=== PATIENT | female | born 1960 | race Caucasian/White ===

== ENCOUNTER 2023-06-24 10:39 | Outpatient (OUT) | payer OTHER, MEDICAID, SELFPAY ==
--- NOTE | 2023-06-24 10:40 | VEIN_ITS ---
Patient Name: NEO ZHENG MR#: [id number] : 1960 Exam Date: 06/24/2023 Ordering Doctor: DR MANN DIAZ M.D. RADIOLOGY REPORT PROCEDURE: [facility] - OFFICE VISIT INITIAL COMPARISON: None. PROGRESS NOTES: [age] year old female who presents with a 30 year history of lower extremity swelling and dilated veins. Acute onset 2 months ago of a dilated bulging vein, focal pain, erythema. The patient's right leg symptoms are worse than the left. There has been a progression of symptoms over time. This increases with prolonged leg dependency. The patient describes an improvement with rest, elevation, and support stockings. The patient denies any signs and symptoms to suggest arterial ischemia. The patient describes a family history : Unknown. The patient has drinking and smoking history of occasional alcohol consumption; no tobacco use. Patient has a past medical history significant for hypertension. The patient denies a history of deep venous thrombus or pulmonary embolus. See separate history and physical for medication list. No prior treatment for varicose or spider veins. Long-term use of compression stockings. After review of nurse notes, history and physical exam I discussed at length the pathophysiology of venous hypertension and possible treatments, therapies and strategies available. We discussed at length the importance of elevating the lower extremities above the level of the heart, increased physical activity and compression stocking use. Ultrasound venous reflux study performed today was discussed at length with the patient. The report demonstrates abnormally dilated with prominent abnormal reflux within the great saphenous and small saphenous veins bilaterally. Mild reflux but no abnormal dilation of the right anterior accessory saphenous vein. Bilateral dilated incompetent branch saphenous varicosities.. PHYSICAL EXAM: The right leg demonstrates several varicosities, numerous reticular and spider veins, no ulceration, mild edema, no skin discoloration. The left leg demonstrates several varicosities, numerous reticular and spider veins, no ulceration, mild edema, no skin discoloration. Both thighs, legs and feet were symmetrically warm to the touch. Good posterior tibial and dorsalis pedis pulses were present bilaterally. VEIN/[facility] EST Comprehensive IMPRESSION: 1. Bilateral lower extremity venous insufficiency 2. Bilateral lower extremity varicose veins 3. Mild bilateral lower extremity subcutaneous edema 4. No flow significant arterial disease 5. CEAP: [place] for C3, AP, , [place] PLAN: 1. Continued use of compression stockings 2. Elevated legs and increased physical activity symptomatic relief 3. Endovenous laser ablation of right great saphenous vein, left great saphenous vein, right small saphenous vein, and left small saphenous vein. 4. Microfoam chemical ablation of bilateral incompetent branch saphenous varicosities. 5. Bilateral lower extremity sclerotherapy for numerous reticular veins and spider veins. Nurse notes, history and physical were reviewed and confirmed, see attached forms. The nurse was present throughout the physical exam and consultation Dictated by: Julien Vega M.D. on 06/24/2023 at 12:08 Approved by: Julien Vega M.D. on 06/24/2023 at 12:34
--- NOTE | 2023-06-24 10:41 | VEIN_ITS ---
Patient Name: NEO ZHENG MR#: [id number] : 1960 Exam Date: 06/24/2023 Ordering Doctor: DR MANN DIAZ M.D. RADIOLOGY REPORT PROCEDURE: VC EXT VENOUS REFLUX ANOOP LMTD COMPARISON: None. INDICATIONS: I83.813 Pain due to varicose veins of bilateral legs TECHNIQUE: Duplex imaging of the lower extremity to assess the deep and superficial venous system for the presence of deep or superficial venous incompetence and to document the location and severity of disease. The study includes evaluation of the great saphenous vein (GSV), anterior accessory saphenous vein (AASV) and small saphenous vein (SSV). Patient scanned in reverse Trendelenburg and standing. FINDINGS: RIGHT LOWER EXTREMITY: Saphenofemoral Junction Reflux: Yes 10.0mm 1.1 sec GSV: Diam (mm) Reflux/ Time (sec) Proximal Thigh 7.0 Yes 2.0 Mid Thigh 4.8 Yes 1.3 Distal Thigh 4.6 Yes 0.8 Prox Calf 4.5 No Mid Calf 4.5 Yes 0.6 Saphenopopliteal Junction Reflux: 5.6mm Yes 1.8 SSV: Proximal Calf 6.5 Yes 0.6 Mid Calf 3.5 Yes 1.3 AASV: Proximal Thigh 3.2 Yes 0.6 Mid Thigh 3.7 No Distal Thigh Thrombi: No acute or chronic thrombus visualized Compressibility: Normal Flow: Normal Preforator: Dist/med calf 2.8mm with 0s reflux. Tech Note: Incompetent GSV and SSV. Patent varicose vein prox/med calf 5.7mm with 0.6s reflux. Patent varicose vein prox/med calf 3.5mm with 0.5s reflux. Patent varicose vein dist/med thigh 3.8mm with 1.0s reflux. LEFT LOWER EXTREMITY: Saphenofemoral Junction Reflux: 11.4 mm 1.6 sec GSV: Diam (mm) Reflux/Time (sec) Proximal Thigh 6.8 Yes 0.8 Mid Thigh 7.9 Yes 3.5 Distal Thigh 5.3 Yes 2.8 Prox Calf 5.2 Yes 3.2 Mid Calf 3.8 Yes 0.8 Saphenopopliteal Junction Relux: 5.5 mm Yes 1.3 SSV: Proximal Calf 5.9 Yes 1.3 Mid Calf 5.1 Yes 1.2 AASV: Proximal Thigh Mid Thigh Distal Thigh Thrombi: No acute or chronic thrombus visualized Compressibility: Normal Flow: Normal Is/It Project Manager: Dist/med calf 3.6mm with 1.3s reflux. Tech Note: Incompetent GSV and SSV. Proximal portion of GSV is inconsistent and arises at mid calf and continues to distal calf. Patent varicose vein prox/med calf 3.9mm with 0.6s reflux. Patent varicose vein dist/med calf 4.1mm with 0.8s reflux. CONCLUSION: 1. Abnormally dilated and incompetent great saphenous and small saphenous veins bilaterally. 2. Multiple associated dilated and incompetent branch saphenous varicosities bilaterally. Dictated by: Julien Vega M.D. on 06/24/2023 at 11:38 Approved by: Julien Vega M.D. on 06/24/2023 at 12:08
== END 2023-06-24 10:40 | disposition home or self-care (01) ==
PROVIDERS: PCP Radiology Diagnostic Radiology; Visit Provider Radiology Diagnostic Radiology
DX: I83.813 Varicose veins of bilateral lower extremities with pain (principal)
CPT/HCPCS: 93970; G0463

== ENCOUNTER 2023-08-04 10:30 | Outpatient (OUT) | payer MEDICARE, SELFPAY ==
--- NOTE | 2023-08-04 | VEIN_ITS ---
[address] [address] Patient Name: NEO ZHENG MRN: [id number] date: 1960 Sex: F Assigned Patient Location: Current Patient Location: Accession/Order Number: [id number] Exam Date: 08/04/2023 10:45 Report Date: 08/04/2023 12:54 At the request of: MANN DIAZ Procedure: VC Endovenous Ablation 1VeinLT EXAMINATION: VC Endovenous Ablation 1Vein, left great saphenous vein HISTORY: I83.813 Bilateral painful varicose veins COMPARISON: No relevant comparison available. TECHNIQUE: The risks and benefits of the procedure had been previously discussed, and were rediscussed at length. Informed written consent was obtained. Nithya Bergman and Stefan Ross assisted. Time out procedure was performed. The left lower extremity was prepared and draped in the usual sterile fashion to allow knee flexion in the sterile field. Duplex ultrasound probe was draped in a sterile cover, sterile transmission gel was used. Venous mapping was performed with the areas of dilation and large tributaries marked. The total length was 50 cm from the entry 8 cm above the medial malleolus to where the great saphenous vein becomes discontinuous in the upper thigh. The diameter of the greater saphenous vein ranged from 4-8 mm. A 30 gauge needle and 1% buffered lidocaine was used to anesthetize the entry site. A 4 mm incision was made with a scalpel and the saphenous vein was entered percutaneously under direct ultrasound guidance with a micropuncture set, a single stick was successful in gaining access. A micro-guide wire was inserted and the needle removed. A micro-set including a dilator was inserted over the microwire and the needle and dilator were removed. A 0.018 guide wire was inserted through the micro-set and threaded through the saphenous vein to the saphenofemoral junction. The dilator was removed and an introducer sheath was inserted over the wire until the end of the sheath entered the saphenofemoral junction. The dilator and wire were removed and the 600 micron fiber was introduced and placed and positioned so that it extended beyond the sheath and was 3 cm peripheral to the saphenofemoral femoral junction. Final position of the fiber was determined by ultrasound guidance and duplex imaging. Tumescent anesthetic was delivered by ultrasound guidance. 250 cc of fluid was delivered along the entire course of the saphenous vein. The solution consisted of 1000 cc of normal saline with 40 mL of 1% lidocaine and 20 mL of sodium bicarbonate. A final positioning check was made. The energy source was turned on by means of the foot pedal and the fiber and sheath were withdrawn. The total number of Joules delivered was 2453. The laser was active for 307seconds under continuous pulse, average laser use of 8 J. Laser start time 11:44 AM 08/04/2023 . Laser stop time 11:51 AM 08/04/2023 . A duplex ultrasound revealed compressibility and flow at the saphenofemoral junction immediately after the procedure. Hemostasis at the access site was achieved. The skin incision of the saphenous vein was closed with a 4 x 4. A compression stocking was applied. Postop instructions were given. A follow up appointment was recommended and scheduled. The patient tolerated the procedure well and was discharged in good condition . VEIN/VC Endovenous Ablation 1VeinLT IMPRESSION: Technically successful endovenous laser ablation of the left great saphenous vein Electronically authenticated by: MANN DIAZ Date: 08/04/2023 12:54
--- OUTSIDE RECORDS SUMMARY | 2023-08-04 10:43 | XMS_ITS | CCD ---
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 Name Role Phone LINDSEY, DR LEE Admitting Unavailable PORTILLO, DR LEE Attending Unavailable ALLSOP, DR LANDRY Referring Unavailable PORTILLO, DR LEE Consulting Unavailable WEST, DR MANN Bueno Consulting Unavailable DORJACQUIE GARCIA Consulting Unavailable PORTILLO, DR LEE Admitting Unavailable PORTILLO, DR LEE Attending Unavailable PORTILLO, DR LEE Consulting Unavailable ALLSOP, DR LANDRY Referring Unavailable ZIEBER, DR NOY De Leon Consulting Unavailable MIGUEL, ANNE Consulting Unavailable PORTILLO, DR LEE Admitting Unavailable PORTILLO, DR LEE Attending Unavailable ALLSOP, GRIS Jane Attending Unavailable REFERRAL, SELF Attending Unavailable Allergies Allergy Classification Reported Allergen(s) Allergy Type Date of Onset Reaction(s) Facility Opioid Agonists (2 sources) Morphine; Translations: [morphine] Drug Allergy 05-30-2020 [facility] Repository Problems Problem Classification Problem Date Documented Date Episodic/Chronic Abdominal pain (1 source) Unspecified abdominal pain; Translations: [UNSPECIFIED ABDOMINAL PAIN] Onset: 06-06-2020 Episodic Calculus of urinary tract (4 sources) Calculus of kidney; Translations: [CALCULUS OF KIDNEY] Onset: 06-06-2020 Episodic Esophageal disorders (1 source) Gastro-esophageal reflux disease without esophagitis; Translations: [GERD WITHOUT ESOPHAGITIS] Onset: 06-13-2020 Chronic Essential hypertension (1 source) Essential (primary) hypertension; Translations: [ESSENTIAL PRIMARY HYPERTENSION] Onset: 06-13-2020 Chronic Genitourinary symptoms and ill-defined conditions (1 source) Stress incontinence (female) (male); Translations: [STRESS INCONTINENCE FEMALE MALE] Onset: 06-06-2020 Chronic Mood disorders (1 source) Major depressive disorder, single episode, unspecified; Translations: [MARBELLA DEPRESS D/O SINGLE EPIS UNS] Onset: 06-13-2020 Chronic Osteoarthritis (1 source) Unspecified osteoarthritis, unspecified site; Translations: [UNSPECIFIED OSTEOARTHRITIS UNS SITE] Onset: 06-13-2020 Chronic Other aftercare (1 source) Other chcf (current) drug therapy; Translations: [OTH SUPPLY PERSON CURRENT DRUG THERAPY] Onset: 06-13-2020 Episodic Other aftercare (1 source) care home (current) use of aspirin; Translations: [GROUP HOME CURRENT USE OF ASPIRIN] Onset: 06-06-2020 Episodic Other diseases of kidney and ureters (4 sources) Hydronephrosis with renal and ureteral calculous obstruction; Translations: [HYDRONPHROS RENL AND URETRL CALCUL OBST] Onset: 05-30-2020 Episodic Other nutritional; endocrine; and metabolic disorders (1 source) Obesity, unspecified; Translations: [OBESITY UNSPECIFIED] Onset: 06-13-2020 Chronic Other nutritional; endocrine; and metabolic disorders (1 source) Body mass index (BMI) 34.0-34.9, adult; Translations: [BODY MASS INDEX BMI 34.0-34.9 ADULT] Onset: 06-13-2020 Chronic Thyroid disorders (1 source) Hypothyroidism, unspecified; Translations: [HYPOTHYROIDISM UNSPECIFIED] Onset: 06-13-2020 Chronic Results Test Name Value Interpretation Reference Range Facility CALCULI, URINARYon 1 2,8 Dihydroxyadenine Normal [facility] Comment on above: Performed By: #### C ALCULI #### [facility] [address] [id number] Cristi Bina Ammonium Acid Urate Normal [facility] Comment on above: Performed By: #### C ALCULI #### [facility] [address] [id number] Cristi Bina Bilirubin Ql (U) Normal [facility] Comment on above: Performed By: #### C ALCULI #### [facility] [address] [id number] Cristi Bina Ca Oxalate Dihydrate 20 % Normal [facility] Comment on above: Performed By: #### C ALCULI #### [facility] [address] [id number] Cristi Bina CaHPO4 (Brushite) Normal [facility] Comment on above: Performed By: #### C ALCULI #### [facility] [address] [address] Cristi Bina Calcium Bilirubinate Normal [facility] Comment on above: Performed By: #### C ALCULI #### [facility] [address] [address] Cristi Bina Calcium Carbonate Normal [facility] Comment on above: Performed By: #### C ALCULI #### [facility] [address] [address] Cristi Bina Calcium Oxalate Monohydrate 80 % Normal [facility] Comment on above: Performed By: #### C ALCULI #### [facility] [address] [place] [address] Cristi Bina Calcium Palmitate Normal [facility] Comment on above: Performed By: #### C ALCULI #### [facility] [address] [place] [address] Cristi Bina Calcium Phosphate Normal [facility] Comment on above: Performed By: #### C ALCULI #### [facility] [address] [address] Cristi Bina Calcium Stearate Normal [facility] Comment on above: Performed By: #### C ALCULI #### [facility] [address] [place] [address] Cristi Bina Carbonate Apatite Normal [facility] Comment on above: Performed By: #### C ALCULI #### [facility] [address] [address] Cristi Bina Cellular Material Normal [facility] Comment on above: Performed By: #### C ALCULI #### [facility] [address] [place] [address] Cristi Bina Cholesterol Normal [facility] Comment on above: Performed By: #### C ALCULI #### [facility] [address] [place] [address] Cristi Bina Color (U) Brown Normal [facility] Comment on above: Performed By: #### C ALCULI #### [facility] [address] [address] Cristi Bina Comment Normal [facility] Comment on above: Performed By: #### C ALCULI #### [facility] [address] [address] Cristi Bina Comment: Comment Normal [facility] Comment on above: Result Comment: Vijay graham questions regarding Calculi Analysis contact [facility] at: [phone]. Performed By: #### C ALCULI #### [facility] [address] [place] [address] Cristi Bina Composition Comment Normal [facility] Comment on above: Result Comment: Perc entage (Represents the % composition) Performed By: #### C ALCULI #### [facility] [address] [place] [address] Cristi Bina Cystine Normal [facility] Comment on above: Performed By: #### C ALCULI #### [facility] [address] [place] [address] Cristi Bina Disclaimer: Comment Normal [facility] Comment on above: Result Comment: This test was developed and its performance characteristics determined by [facility]. It has not been cleared or approved by the Food and Drug Administration. Performed By: #### C ALCULI #### [facility] [address] [place] [address] Cristi Bina Dried Blood Normal [facility] Comment on above: Performed By: #### C ALCULI #### [facility] [address] [place] [address] Cristi Bina Drug or Metabolite Normal [facility] Comment on above: Performed By: #### C ALCULI #### [facility] [address] [place] [address] Cristi Bina Hydroxyapatite Normal The [facility] Comment on above: Performed By: #### C ALCULI #### [facility] [address] [place] [address] Cristi Bina Mg NH4 PO4 (Struvite) Normal [facility] Comment on above: Performed By: #### C ALCULI #### [facility] [address] [address] Cristi Bina MgHPO4 (Newberyite) Normal [facility] Comment on above: Performed By: #### C ALCULI #### [facility] [address] [address] Cristi Bina Other component(s) Normal [facility] Comment on above: Performed By: #### C ALCULI #### [facility] [address] [address] Cristi Bina PDF . Normal [facility] Comment on above: Performed By: #### C ALCULI #### [facility] [address] [address] Cristi Bina Photo Comment [facility] Comment on above: Result Comment: Phot neftali will follow under a separate cover Performed By: #### C ALCULI #### [facility] [address] [address] Cristi Bina Please note: Comment Normal [facility] Comment on above: Result Comment: Calc josé manuel report will follow via computer, mail or stave block splitter delivery. Performed By: #### C ALCULI #### [facility] [address] [address] Cristi Bina Size 4x6 [facility] Comment on above: Result Comment: Mult iple pieces received. Dimensions of the largest piece reported. Performed By: #### C ALCULI #### [facility] [address] [address] Cristi Bina Sodium Acid Urate Normal [facility] Comment on above: Performed By: #### C ALCULI #### [facility] [address] [address] Cristi Bina Source Comment Normal [facility] Comment on above: Result Comment: Righ t Ureter Performed By: #### C ALCULI #### [facility] [address] [address] Cristi Bina Triamterene [facility] Comment on above: Performed By: #### C ALCULI #### [facility] [address] [address] Cristi Bina Uric Acid Normal [facility] Comment on above: Performed By: #### C ALCULI #### [facility] [address] [place], [place] [address] Cristi Bina Uric Acid Dihydrate Normal [facility] Comment on above: Performed By: #### C ALCULI #### [facility] [address] [place], [place] [address] Cristi Bina Weight 122 mg Normal [facility] Comment on above: Performed By: #### C ALCULI #### [facility] [address] [place], [place] [address] Cristi Bina Xanthine Normal [facility] Comment on above: Performed By: #### C ALCULI #### [facility] [address] [address] Cristi Bina XR KUB 1 VIEWon 06-06-2020 XR KUB 1 VIEW EXAMINATION: XR KUB 1 VIEW HISTORY: Urolithiasis COMPARISON: No relevant comparison available. FINDINGS: KIDNEY/URETER - RIGHT: Multiple right nephrolith. Right ureteral stent, the proximal portion the stent appears positioned within the renal pelvis or proximal ureter. KIDNEY/URETER - LEFT: No visible renal or ureteral calcifications. PELVIS: No visible ureteral calcifications. Any visible calcifications favor phleboliths. BOWEL: No abnormal dilation or deviation. BONES: No acute abnormality. Degenerative spondylosis. Bilateral hip osteoarthropathy. OTHER: Negative. No abnormal gaseous collections. IMPRESSION: Right nephrolithiasis with suspected low position of the ureteral stent Electronically authenticated by: MANN DIAZ Date: 2020-06-06 07:31 Normal [facility] XR FLUORO < 1 HRon XR FLUORO < 1 HR EXAMINATION: XR FLUORO < 1 HR HISTORY: Kidney stone COMPARISON: No relevant comparison available. FLUOROSCOPY TIME: Fluoro time measures 12 seconds and 3 images were obtained. TECHNIQUE: Standard level fluoroscopic mode of operation utilized. FINDINGS: 3 spot fluoroscopic intraprocedural images demonstrate stent placement within the right ureter, with final image showing coiled stent within the renal pelvis and urinary bladder. 2 dense calcifications project over the inferior pole of the right kidney, largest is approximately 7 mm. IMPRESSION: 1. Right ureteral stent placement. Electronically authenticated by: NOY DONOVAN Date: 2020-05-30 15:24 Normal [facility] Encounters Encounter Date Encounter Type Care Provider Facility Start: 07-27-2023 End: 07-27-2023 ambulatory SELF REFERRAL Facility:[facility] Start: 05-24-2023 End: 05-24-2023 ambulatory GRIS MOURA Not Available Start: 06-06-2020 End: 06-06-[address] JESUS PORTILLO Facility:[facility] Start: 05-30-2020 End: 05-30-[address] JESUS PORTILLO Facility:[facility] Start: 05-29-[address] JESUS [facility] Payers Date Payer Category Payer Medicaid [id number] 2022 Unknown [id number] 1961 Unknown [id number] 1961 Unknown 1960 Unknown [id number] [id number] [id number] 1958 Unknown [id number] 2.16.84 [id number] 1958 Unknown [id number] 2.16.84 [id number] 1958 Unknown [id number] 2.16.84 [id number] 1958 Unknown [id number] [id number] Clinical Note 05-30-2020 Note Date & Type Note Facility 05-30-2020 Note OPERATIVE NOTE OPERATION DATE: 05-30-20 ANESTHETIC:General by LMA. PREOPERATIVE DIAGNOSIS: Right ureteral calculus. POSTOPERATIVE DIAGNOSIS:Same. PROCEDURE NAME: 1. Cystoscopy. 2. Right rigid ureteral dilation. 3. Right ureteroscopy. 4. Holmium laser lithotripsy of two ureteral calculi. 5. Stone basket extraction of two ureteral calculi. 6. Placement of a 7 Yakut variable length right ureteral stent. COMPLICATIONS: None. INDICATIONS: Neo is a 59 year-old lady with an obstructing right distal ureteral calculus measured out to be about 5-6 mm. She has been unable to pass this stone and she is desirous for stone manipulation and possible stent placement. She has signed an informed consent for these procedures after all the risks were explained to her in great detail. PROCEDURE: The patient was brought to the OR and placed on the OR table in the supine position. SCD's were placed on her lower extremities, turned on and functioning during the entire case. General anesthesia was administered via LMA. She was then repositioned into the modified dorsal lithotomy position. All pressure points were satisfactorily padded. Genitalia were sterilely prepped and draped in the usual fashion. I started by passing a 22 Yakut Olympus cystoscope per urethra and into the bladder. Panendoscopy in the bladder showed no evidence of any tumors. One could see her right ureteral calculus partially from the right ureteral orifice. I then passed a glidewire through the scope and cannulated the right UO and got it up into the kidney. There was an efflux of purulent urine. I then used an 8 and 10 south sudanese rigid dilator to dilate the distal right ureter. More purulent effluxed at that time. The cystoscope was then removed. I then passed a semirigid ureteroscope adjacent to the wire through the urethra into the bladder and ascended up the right ureter to get to the stone which was 2 cm proximal to the UO. The stone was too big to simply get basketed, therefore I passed a 365 Angstrom Holmium laser fiber through the scope and made contact with the stone. I then began doing laser lithotripsy at 6 godwin continuously. The stone cracked up into several pieces. I then uses a 0 tip Nitinol basket and engaged pieces and brought them into the base of the bladder and dumped them there. I went up and down the ureter several times clearing out pieces until there were no pieces remaining. To my surprise, just a cm proximal to this I found an even larger stone, which was not identified on the CT identified on the CT scan. I presume this was a stone from in the kidney that simply fell down in the ureter. Therefore, I used the same laser fiber and did laser lithotripsy on this larger stone. I would guess that this was at least 8-9 mm in size. I then similarly extracted pieces with the basket and dumped them in the base of the base of the bladder. I went up and down the ureter with the scope numerous times until the entire ureter was stone free. The ureteroscope was then was then removed. I then back loaded the cystoscope over the wire and passed it into the bladder. I then slid a 7 south sudanese variable length right ureteral stent over the wire up into the kidney and then removed the wire. There were good curls in the kidney and in the bladder. I then used the [employer] evacuator to get all the stone pieces out of the bladder and these were sent for stone analysis. The bladder was then drained of it's contents and the scope was then removed. The anesthetic was then reversed. She was then transferred to a [facility] bed and wheeled to the Recovery Room in stable condition. She tolerated it well. There were no complications. She will be discharged to home later today with a script for Keflex 500 mg daily #21 and oxybutynin ER 10 mg daily #21. We will bring her back in a week or two for right ESWL and stent removal. [facility] Signed and Approved by: DR JESUS PORTILLO . 06/06/2020 11:38:00 [facility] Summary Purpose Family History No Family History Records FoundNo Family History Records FoundNo Family History Records Found Advance Directives No Advanced Directives Records FoundNo Advanced Directives Records FoundNo Advanced Directives Records Found Additional Source Comments INFORMATION SOURCE (unrecogn ized section and content) DATE CREATED AUTHOR 06/15/2020 [facility] DATE CREATED AUTHOR AUTHOR'S ORGANIZ ATION 05/25/2023 [facility] EPIC DATE CREATED AUTHOR AUTHOR'S ORGANIZ ATION 07/28/2023 [facility] FOR RECORDS PERTAINING TO PATIENTS WHO ARE OR HAVE BEEN ENROLLED IN A CHEMICAL DEPENDENCY/SUBSTANCEABUSE PROGRAM, SOME INFORMATION MAY BE OMITTED. This clinical summary was aggregated from multiple sources. Caution should be exercised in using it in the provision of clinical care. This summary normalizes information from multiple sources, and as a consequence, information in this document may materially change the coding, format and clinical context of patient data. In addition, data may be omitted in some cases. CLINICAL DECISIONS SHOULD BE BASED ON THE PRIMARY CLINICAL RECORDS. [employer] provides no warranty or guarantee of the accuracy or completeness of information in this document.
[2023-08-04] MEDS: LIDOCAINE HCL 1% 100 MG/10 ML MDV INJ (15:04)
[2023-08-04] MEDS: 0.9 % SODIUM CHLORIDE 500 ML, LIDOCAINE HCL 20 ML, SODIUM BICARBONATE 10 MEQ INJ (15:05)
== END 2023-08-04 10:31 | disposition home or self-care (01) ==
PROVIDERS: PCP Radiology Diagnostic Radiology; Visit Provider Radiology Diagnostic Radiology
DX: I83.813 Varicose veins of bilateral lower extremities with pain (principal)
CPT/HCPCS: 36478

== ENCOUNTER 2023-08-10 09:16 | Outpatient (OUT) | payer MEDICARE, SELFPAY ==
--- OUTSIDE RECORDS SUMMARY | 2023-08-10 09:21 | XMS_ITS | CCD ---
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; 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] Onset: 06-06-2020 Episodic [...] Facility CALCULI, URINARYon 1 2,8 Dihydroxyadenine Normal [facility] Comment on above: Performed By: #### C ALCULI #### [facility] Laboratory [address] [id number] Cristi Bina Ammonium Acid Urate Normal [facility] Comment on above: Performed By: #### C ALCULI #### [facility] [address] [id number] Cristi Bina Bilirubin Ql (U) Normal [facility] Comment on above: Performed By: #### C ALCULI #### [facility] [address] [phone] Cristi Bina Ca Oxalate Dihydrate 20 % Normal [facility] Comment on above: Performed By: #### C ALCULI #### [facility] [address] [phone] Cristi Bina CaHPO4 (Brushite) Normal [facility] Comment on above: Performed By: #### C ALCULI #### [facility] [address] [address] Cristi Bina Calcium Bilirubinate Normal [facility] Comment on above: Performed By: #### C ALCULI #### [facility] [address] [address] Cristi Bina Calcium Carbonate Normal [facility] Comment on above: Performed By: #### C ALCULI #### [facility] [address] [address] Cristi Bina Calcium Oxalate Monohydrate 80 % Normal [facility] Comment on above: Performed By: #### C ALCULI #### [facility] [address] [place] [address] Cristi Bina Calcium Palmitate Normal [facility] Comment on above: Performed By: #### C ALCULI #### [facility] [address] [place] [address] Cristi Bina Calcium Phosphate Normal [facility] Comment on above: Performed By: #### C ALCULI #### [facility] [address] [address] Cristi Bina Calcium Stearate Normal [facility] Comment on above: Performed By: #### C ALCULI #### [facility] [address] [place] [address] Cristi Bina Carbonate Apatite Normal [facility] Comment on above: Performed By: #### C ALCULI #### [facility] [address] [address] Cristi Bina Cellular Material Normal [facility] Comment on above: Performed By: #### C ALCULI #### [facility] [address] [place] [address] Cristi Bina Cholesterol Normal [facility] Comment on above: Performed By: #### C ALCULI #### [facility] [address] [place] [address] Cristi Bina Color (U) Brown Normal [facility] Comment on above: Performed By: #### C ALCULI #### [facility] [address] [address] Cristi Bina Comment Normal [facility] Comment on above: Performed By: #### C ALCULI #### [facility] [address] [address] Cristi Bina Comment: Comment Normal [facility] Comment on above: Result Comment: Vijay graham questions regarding Calculi Analysis contact [facility] at: [phone]. Performed By: #### C ALCULI #### [facility] [address] [place] [address] Cristi Bina Composition Comment Normal [facility] Comment on above: Result Comment: Perc entage (Represents the % composition) Performed By: #### C ALCULI #### [facility] [address] [place] [address] Cristi Bina Cystine Normal [facility] Comment on above: Performed By: #### C ALCULI #### [facility] [address] [place] [address] Cristi Bina Disclaimer: Comment Normal [facility] Comment on above: Result Comment: This test was developed and its performance characteristics determined by [facility]. It has not been cleared or approved by the Food and Drug Administration. Performed By: #### C ALCULI #### [facility] [address] [place] [address] Cristi Bina Dried Blood Normal [facility] Comment on above: Performed By: #### C ALCULI #### [facility] [address] [place] [address] Cristi Bina Drug or Metabolite Normal [facility] Comment on above: Performed By: #### C ALCULI #### [facility] [address] [place] [address] Cristi Bina Hydroxyapatite Normal [facility] Comment on above: Performed By: #### C ALCULI #### [facility] [address] [place] [address] Cristi Bina Mg NH4 PO4 (Struvite) Normal [facility] Comment on above: Performed By: #### C ALCULI #### [facility] [address] [address] Cristi Bina MgHPO4 (Newberyite) Normal [facility] Comment on above: Performed By: #### C ALCULI #### [facility] [address] [address] Cristi Bina Other component(s) Normal [facility] Comment on above: Performed By: #### C ALCULI #### [facility] [address] [address] Cristi Bina PDF . Normal [facility] Comment on above: Performed By: #### C ALCULI #### [facility] [address] [address] Cristi Bina Photo Comment [facility] Comment on above: Result Comment: Phot neftali will follow under a separate cover Performed By: #### C ALCULI #### [facility] [address] [address] Cristi Bina Please note: Comment Normal [facility] Comment on above: Result Comment: Calc josé manuel report will follow via computer, mail or manager surgery delivery. Performed By: #### C ALCULI #### [facility] [address] [address] Cristi Bina Size 4x6 [facility] Comment on above: Result Comment: Mult iple pieces received. Dimensions of the largest piece reported. Performed By: #### C ALCULI #### [facility] [address] [address] Cristi Bina Sodium Acid Urate Normal [facility] Comment on above: Performed By: #### C ALCULI #### [facility] [address] [address] Cristi Bina Source Comment Normal [facility] Comment on above: Result Comment: Righ t Ureter Performed By: #### C ALCULI #### [facility] [address] [address] Cristi Bina Triamterene [facility] Comment on above: Performed By: #### C ALCULI #### [facility] [address] [address] Cristi Bina Uric Acid Normal [facility] Comment on above: Performed By: #### C ALCULI #### [facility] [address] [place], [place] [address] Cristi Bina Uric Acid Dihydrate Normal [facility] Comment on above: Performed By: #### C ALCULI #### [facility] [address] [place], [place] [address] Cristi Bina Weight 122 mg Normal [facility] Comment on above: Performed By: #### C ALCULI #### [facility] [address] [place], [place] [address] Cristi Bina Xanthine Normal [facility] Comment on above: Performed By: #### C ALCULI #### [facility] [address] [address] Cristi Bina XR KUB 1 VIEWon 06-06-2020 [...] by: MANN DIAZ Date: 2020-06-06 07:31 Normal [facility] XR FLUORO < 1 HRon XR FLUORO [...] by: NOY DONOVAN Date: 2020-05-30 15:24 Normal [facility] Encounters Encounter Date Encounter Type Care Provider Facility Start: 07-27-2023 End: 07-27-2023 ambulatory SELF REF[place]AL [place] [place]: 05-24-2023 End: 05-24-2023 ambulatory GRIS MOURA Not Available Start: 06-06-2020 End: 06-06-[address] JESUS PORTILLO Facility:[facility] Start: 05-30-2020 End: 05-30-[address] JESUS PORTILLO Facility:[facility] Start: 05-29-[address] JESUS PORTILLO [facility] ity:[facility] Payers Date Payer Category Payer Medicaid [id number] 2022 Unknown [id number] 1961 Unknown [id number] 1961 Unknown 1960 Unknown [id number] [id number] [id number] 1958 Unknown [id number] 2.16.84 [id number] 1958 Unknown [id number] 2.16.84 [id number] 1958 Unknown [id number] 2.16.84 [id number] 1958 Unknown [id number] [id number] Clinical Note 05-30-2020 Note Date & Type Note Facility 05-30-2020 Note OPERATIVE NOTE OPERATION DATE: 05-30-20 ANESTHETIC:General by LMA. PREOPERATIVE DIAGNOSIS: Right ureteral calculus. POSTOPERATIVE DIAGNOSIS:Same. PROCEDURE NAME: 1. Cystoscopy. 2. Right rigid ureteral dilation. 3. Right ureteroscopy. 4. Holmium laser lithotripsy of two ureteral calculi. 5. Stone basket extraction of two ureteral calculi. 6. Placement of a 7 Cook Islander variable length right ureteral stent. COMPLICATIONS: None. [...] fashion. I started by passing a 22 Cook Islander Olympus cystoscope per urethra and into the [...] I then used an 8 and 10 wolof rigid dilator to dilate the distal right [...] the bladder. I then slid a 7 wolof variable length right ureteral stent over the wire up into the kidney and then removed the wire. There were good curls in the kidney and in the bladder. I then used the [employer] evacuator to get all the stone pieces out of the bladder and these were sent for stone analysis. The bladder was then drained of it's contents and the scope was then removed. The anesthetic was then reversed. She was then transferred to a [facility] bed and wheeled to the Recovery Room in stable condition. She tolerated it well. There were no complications. She will be discharged to home later today with a script for Keflex 500 mg daily #21 and oxybutynin ER 10 mg daily #21. We will bring her back in a week or two for right ESWL and stent removal. [facility] Signed and Approved by: DR JESUS PORTILLO . 06/06/2020 11:38:00 [facility] Summary Purpose Family History No Family History Records FoundNo Family History Records FoundNo Family History Records Found Advance Directives No Advanced Directives Records FoundNo Advanced Directives Records FoundNo Advanced Directives Records Found Additional Source Comments INFORMATION SOURCE (unrecogn ized section and content) DATE CREATED AUTHOR 06/15/2020 The [facility] DATE CREATED AUTHOR AUTHOR'S ORGANIZ ATION 05/25/2023 [facility] EPIC DATE CREATED AUTHOR AUTHOR'S ORGANIZ ATION 07/28/2023 [facility] FOR RECORDS PERTAINING TO PATIENTS [...] BE BASED ON THE PRIMARY CLINICAL RECORDS. [employer] provides no warranty or guarantee of the accuracy or completeness of information in this document.
--- NOTE | 2023-08-10 09:22 | VEIN_ITS ---
Patient Name: NEO ZHENG MR#: [id number] : 1960 Exam Date: 08/10/2023 Ordering Doctor: DR MANN DIAZ M.D. RADIOLOGY REPORT PROCEDURE: FACILITY EST [facility] - OFFICE VISIT FOLLOW UP COMPARISON: None. PROGRESS NOTES: The patient reports improvement in leg symptoms. There has been interval reduction in varicosities. The patient has followed our recommendations to walk 20-30 minutes once or twice per day since the procedure. Physical exam demonstrates decrease in varicosities of the leg. Persistent varicosities are identified along the legs bilaterally. Review of the ultrasound performed the same day demonstrates occlusive thrombus extending throughout the treated vein(s), see separate report, consistent with a successful ablation. No thrombus extending into or beyond the saphenofemoral junction. The patient expressed a desire to proceed with treatment of remaining incompetent varicosities. The patient was informed that treatment was a process and would require several procedures/sessions. VEIN/ Facility EST LMTD IMPRESSION: 1. Successful ablation of the left great saphenous vein(s). 2. Persistent varicose veins and lower extremity symptoms. PLAN: Endovenous laser ablation of right great saphenous vein. Nurse notes, history and physical were reviewed and confirmed, see attached forms. The nurse was present throughout the physical exam and consultation Dictated by: Julien Vega M.D. on 08/10/2023 at 12:42 Approved by: Julien Vega M.D. on 08/10/2023 at 12:42
--- NOTE | 2023-08-10 09:22 | VEIN_ITS ---
Patient Name: NEO ZHENG MR#: [id number] : 1960 Exam Date: 08/10/2023 Ordering Doctor: DR MANN DIAZ M.D. RADIOLOGY REPORT PROCEDURE: VC EXT VENOUS LT LIMITED COMPARISON: None. INDICATIONS: Phlebitis of superficial veins of lt lower extremity I80.02 TECHNIQUE: Lower extremity medrano scale and Duplex Doppler evaluation of the deep venous system from the inguinal ligament through the calf veins. FINDINGS: REGION: Left lower extremity. THROMBI: Negative for DVT. Heat induced thrombus visualized arising at prox thigh and extending through distal calf. COMPRESSIBILITY: Non-compressible segments corresponding to thrombus FLOW: Areas of no flow corresponding to thrombus OTHER: CONCLUSION: 1. Successful post ablation occlusion of left great saphenous vein. Dictated by: Julien Vega M.D. on 08/10/2023 at 12:40 Approved by: Julien Vega M.D. on 08/10/2023 at 12:41
[2023-08-10 12:53] VITALS: BP 132/86; PULSE 86; O2SAT 99; BMI 31.1
--- NOTE | 2023-08-10 12:53 | V.VEINS.HP ---
Vital Signs 08/10/23 12:53 Height 5 ft 4 in Weight 82.1 kg BMI 31.1 BP 132/86 BP Location Left Brachial BP Position Sitting BP Cuff Size Adult BP Source Manual Cuff Respiration 18 Pulse 86 Pulse Oximetry (%) 99 Comment The patient's blood pressure is elevated. Varicose Veins Julien Santana MD personally performed the services described in this documentation, as scribed by Sharon Castillo RVT, RDMS in my presence and it is both accurate and complete. Sharon Santana RVT, RDMS, am scribing for, and in the presence of, Dr. Julien Vega and in the presence of the patient. medial thigh: bilateral, knee: bilateral, calf: bilateral, ankle: bilateral and zepeda: bilateral dull, sharp and intermittent 8 2 months Worsened in recent months: Yes standing bed rest, elevating extremities and compression stockings Reports muscle spasms of leg, heaviness, edema and leg edema History of lower extremity trauma: No Superficial thrombophlebitis: No Family history of varicose veins: unknown Has patient had previous lower extremity venous surgery: No Patient has previously received the following treatment(s) for lower extremity varicose veins: Reports sclerotherapy Does patient have a history of : yes Does patient intend to have future pregnancies: no Has patient had lower extremity venous scan with relux testing: Yes Support hose used: Yes Problems walking or doing physical activity: Yes How does it affect you: Pain and heaviness when walking Do you walk much: Yes Do you stand much: Yes Medication compliance: good Review of Systems ROS Narrative Julien Santana MD personally performed the services described in this documentation, as scribed by Sharon Castillo RVT, RDMS in my presence and it is both accurate and complete. Shraon Santana RVT, RDMS, am scribing for, and in the presence of, Dr. Julien Vega and in the presence of the patient. Status of ROS 10 or more systems reviewed and unremarkable except as noted in history and below Cardiovascular Reports: edema, swelling of feet/ankles and leg pain with exertion Musculoskeletal Reports: extremity pain, extremity swelling, limited range of motion, joint swelling, muscle cramps and muscle weakness Integumentary/Breast Reports: itching, redness, skin pain, skin tenderness, skin swelling, new lesion, non-healing lesion and changes in skin color Neurological Reports: numbness in extremities and weakness in extremities PFSH [facility] Medical History (Updated 08/10/23 @ 15:02 by Sharon Castillo) Varicose veins of bilateral lower extremities with pain ?I83.813 - Varicose veins of bilateral lower extremities with pain (ICD-10) Kidney stone ?N20.0 - Calculus of kidney (ICD-10) Insomnia ?G47.00 - Insomnia, unspecified (ICD-10) Hypotension ?I95.9 - Hypotension, unspecified (ICD-10) Hypertension ?I10 - Essential (primary) hypertension (ICD-10) Surgical History (Updated 08/10/23 @ 15:02 by Sharon Castillo) Status post ablation of incompetent vein using laser ?Z98.890 - Other specified postprocedural states (ICD-10) History of bilateral oophorectomy ?Z90.722 - Acquired absence of ovaries, bilateral (ICD-10) History of plastic surgery ?Z98.890 - Other specified postprocedural states (ICD-10) History of gastric bypass ?Z98.84 - Bariatric surgery status (ICD-10) Family History (Updated 08/10/23 @ 15:02 by Sharon Castillo) Other Family history not known due to adoption Social History (Updated 08/10/23 @ 15:03 by Sharon Castillo) Within the past year, how often did you have a drink containing alcohol: 2-4 times a month Smoking status: Never smoker Non-prescribed substance use: denies use Meds Home Medications and Allergies Home Medications ?Medication ?Instructions ?Recorded ?Confirmed ?Type aspirin 81 mg capsule 81 mg PO DAILY 08/10/23 08/10/23 History carvedilol 6.25 mg tablet (Coreg) 6.25 mg PO BID 08/10/23 08/10/23 History cholecalciferol (vitamin D3) 50 50 mcg PO DAILY 08/10/23 08/10/23 History mcg (2,000 unit) capsule (D3-1999) levothyroxine 100 mcg tablet 100 mcg PO DAILY 08/10/23 08/10/23 History (Euthyrox) trazodone 50 mg tablet 25 mg PO DAILY 08/10/23 08/10/23 History triamterene 37.5 1 cap PO DAILY 08/10/23 08/10/23 History mg-hydrochlorothiazide 25 mg capsule Allergies Allergy/AdvReac Type Severity Reaction Status Date / Time No Known Drug Allergies Allergy Verified 07/30/23 17:01 Exam Narrative Exam Narrative: Julien Santana MD personally performed the services described in this documentation, as scribed by Sharon Castillo RVT, RDMS in my presence and it is both accurate and complete. Sharon Santana RVT, RDMS, am scribing for, and in the presence of, Dr. Julien Vega and in the presence of the patient. Constitutional Documenting provider has reviewed patient's vital signs: yes Common normals: oriented x3 Lymph Lymphatic: no lymphedema noted Cardio Common normals: regular rate Rate: regular rate Peripheral pulses: posterior tibial pulses present and dorsalis pedis pulses present Extremity Common normals: normal capillary refill General: calf tenderness and edema Right lower extremity: upper leg and lower leg Left lower extremity: upper leg and lower leg Neuro Common normals: oriented x3 Results Imaging Venous US: Radiologist's impression: Heat induced thrombus visualized extending from proximal GSV through distal calf GSV. Assessment and Plan Assessment and Plan (1) Varicose veins of bilateral lower extremities with pain: Plan Patient in today for follow up ultrasound of lower extremity following treatment of EVLT of right leg GSV completed on 08/04/23. The patient has no complaints at this time.
--- NOTE | 2023-08-10 15:15 | W.VEIN ---
Discharge Plan Discharge Disposition: Home, Self-Care Outpatient Diagnostics: VC Endovenous Ablation 1VeinRT (Routine) Timeframe: 2 Weeks Facility: [facility] - Location: Vein Center Ordered By: Julien Vega Follow Up Appointments: 08/25/2023 Print Language: Mongolian Discharge Date/Time: 08/10/23 15:18
== END 2023-08-10 15:18 | disposition home or self-care (01) ==
PROVIDERS: PCP Radiology Diagnostic Radiology; Visit Provider Radiology Diagnostic Radiology
DX: I80.02 Phlebitis and thrombophlebitis of superficial vessels of left lower extremity (principal)
CPT/HCPCS: 93971; G0463

== ENCOUNTER 2023-08-25 10:18 | Outpatient (OUT) | payer MEDICARE, SELFPAY ==
--- NOTE | 2023-08-24 14:36 | V.VEINS.HP ---
Vital Signs 08/24/23 14:59 08/25/23 10:30 Height 5 ft 6 in 5 ft 6 in Weight 77.111 kg 77 kg BMI 27.4 BP 130/70 BP Location Right Brachial BP Position Sitting BP Cuff Size Adult BP Source Manual Cuff Comment The patient's blood pressure is elevated. Varicose Veins Patient in this day for EVLT of right GSV Julien Santana MD personally performed the services described in this documentation, as scribed by Stefan Ross RN in my presence and it is both accurate and complete. Stefan Santana RN, am scribing for, and in the presence of, Dr. Julien Vega and in the presence of the patient. medial thigh: bilateral, knee: bilateral, calf: bilateral, ankle: bilateral and zepeda: bilateral dull, sharp and intermittent 8 2 months Worsened in recent months: Yes standing bed rest, elevating extremities and compression stockings Reports muscle spasms of leg, heaviness, edema and leg edema History of lower extremity trauma: No Superficial thrombophlebitis: No Family history of varicose veins: unknown Has patient had previous lower extremity venous surgery: No Patient has previously received the following treatment(s) for lower extremity varicose veins: Reports sclerotherapy Does patient have a history of : yes Does patient intend to have future pregnancies: no Has patient had lower extremity venous scan with relux testing: Yes Support hose used: Yes Problems walking or doing physical activity: Yes How does it affect you: Pain and heaviness when walking Do you walk much: Yes Do you stand much: Yes Medication compliance: good Review of Systems ROS Narrative Julien Santana MD personally performed the services described in this documentation, as scribed by Stefan Ross RN in my presence and it is both accurate and complete. Stefan Santana RN, am scribing for, and in the presence of, Dr. Julien Vega and in the presence of the patient. Status of ROS 10 or more systems reviewed and unremarkable except as noted in history and below Cardiovascular Reports: edema, swelling of feet/ankles and leg pain with exertion Musculoskeletal Reports: extremity pain, extremity swelling, limited range of motion, joint swelling, muscle cramps and muscle weakness Integumentary/Breast Reports: itching, redness, skin pain, skin tenderness, skin swelling, new lesion, non-healing lesion and changes in skin color Neurological Reports: numbness in extremities and weakness in extremities PFSH [facility] Medical History (Updated 08/24/23 @ 15:05 by Stefan Ross) Phlebitis and thrombophlebitis of superficial vessels of right lower extremity ?I80.01 - Phlebitis and thrombophlebitis of superficial vessels of right lower extremity (ICD-10) Phlebitis and thrombophlebitis of superficial vessels of left lower extremity ?I80.02 - Phlebitis and thrombophlebitis of superficial vessels of left lower extremity (ICD-10) Varicose veins of bilateral lower extremities with pain ?I83.813 - Varicose veins of bilateral lower extremities with pain (ICD-10) Kidney stone ?N20.0 - Calculus of kidney (ICD-10) Insomnia ?G47.00 - Insomnia, unspecified (ICD-10) Hypotension ?I95.9 - Hypotension, unspecified (ICD-10) Hypertension ?I10 - Essential (primary) hypertension (ICD-10) Surgical History (Updated 08/10/23 @ 15:02 by Sharon Castillo) Status post ablation of incompetent vein using laser ?Z98.890 - Other specified postprocedural states (ICD-10) History of bilateral oophorectomy ?Z90.722 - Acquired absence of ovaries, bilateral (ICD-10) History of plastic surgery ?Z98.890 - Other specified postprocedural states (ICD-10) History of gastric bypass ?Z98.84 - Bariatric surgery status (ICD-10) Family History (Updated 08/10/23 @ 15:02 by Sharon Castillo) Other Family history not known due to adoption Social History (Updated 08/10/23 @ 15:03 by Sharon Castillo) Within the past year, how often did you have a drink containing alcohol: 2-4 times a month Smoking status: Never smoker Non-prescribed substance use: denies use Meds Home Medications and Allergies Home Medications ?Medication ?Instructions ?Recorded ?Confirmed ?Type aspirin 81 mg capsule 81 mg PO DAILY 08/10/23 08/10/23 History carvedilol 6.25 mg tablet (Coreg) 6.25 mg PO BID 08/10/23 08/10/23 History cholecalciferol (vitamin D3) 50 50 mcg PO DAILY 08/10/23 08/10/23 History mcg (2,000 unit) capsule (D3-2000) levothyroxine 100 mcg tablet 100 mcg PO DAILY 08/10/23 08/10/23 History (Euthyrox) trazodone 50 mg tablet 25 mg PO DAILY 08/10/23 08/10/23 History triamterene 37.5 1 cap PO DAILY 08/10/23 08/10/23 History mg-hydrochlorothiazide 25 mg capsule Allergies Allergy/AdvReac Type Severity Reaction Status Date / Time No Known Drug Allergies Allergy Verified 07/30/23 17:01 Exam Narrative Exam Narrative: IJulien MD personally performed the services described in this documentation, as scribed by Stefan Ross RN in my presence and it is both accurate and complete. IStefan RN, am scribing for, and in the presence of, Dr. Julien Vega and in the presence of the patient. Constitutional Documenting provider has reviewed patient's vital signs: yes Common normals: oriented x3 Lymph Lymphatic: no lymphedema noted Cardio Common normals: regular rate Rate: regular rate Peripheral pulses: posterior tibial pulses present and dorsalis pedis pulses present Extremity Common normals: normal capillary refill General: calf tenderness and edema Right lower extremity: upper leg and lower leg Left lower extremity: upper leg and lower leg Neuro Common normals: oriented x3 Assessment and Plan Assessment and Plan (1) Varicose veins of bilateral lower extremities with pain: (2) Phlebitis and thrombophlebitis of superficial vessels of right lower extremity: Plan Plan of care: Risks and benefits of the procedure were discussed at length and informed written consent was obtained.? Time-out completed for verification of correct patient, procedure and site.? Staff present during time-out: Stefan Ross RN,? Julien Vega MD, [facility]. Time Out Time__1053 Patient prepped and procedure performed in usual sterile fashion. Risk of injury related to use of Diode laser and/or laser devices__CR___ ? Serial number of laser used :? [id number] Control panel self test performed, electrical cords in good condition, floor is dry, basin of water available, fire extinguisher in close proximity_CR__ Polycarbonate goggles available and Laser warning signs outside of doors___CR__ Eye protection provided to patient and staff in room_CR___ Use of laser retardant drapes and dull blackened instruments as directed__CR___ Use of nonflammable prep solutions and use of saline soaked sponges to protect tissues as indicated _CR___ Length _62___ cm Laser operated by _Dr. Vega__ Physician verbal confirmation laser locked in place__CR__ Laser start time (date and time) _08/25/2023@_1109____ Laser stop time(date and time) __08/25/2023@_1118___ Colón _8.0___ Average laser use __3396__Joules Average laser use__424__seconds Pulse continuous ___CR_? Pulse intermittent ___ Amount of Tumescent used _275cc___ Evaluated patient for signs and symptoms of electrical injury __CR___ ? Skin clear at insertion site __CR___ Patient tolerated procedure well.? Left leg Coban dressing applied to access site.? Applied Left thigh high leg compression stocking. Will return on 09/01/2023 for Left leg limited venous ultrasound and exam. IJulien MD personally performed the services described in this documentation, as scribed by Stefan Ross RN in my presence and it is both accurate and complete. I, Stefan Ross RN, am scribing for, and in the presence of, Dr. Julien Vega and in the presence of the patient.. Procedures Procedure Note Date of procedure: 08/24/23 Procedure: EVLT of right GSV Surgeon: Julien Vega
--- NOTE | 2023-08-24 14:58 | W.VEIN ---
Discharge Plan Discharge Disposition: Home, Self-Care Outpatient Diagnostics: VC Facility EST LMTD (Routine) Timeframe: 2 Weeks Facility: [facility] - Location: Vein Center Ordered By: Jericho Aviles VC EXT Venous RT LMTD (Routine) Timeframe: 2 Weeks Facility: [facility] - Location: Vein Center Ordered By: Jericho Aviles Follow Up Appointments: 09/01/2023 at 1300 Patient Instructions: Endovenous Ablation (DC) Print Language: Irish Discharge Date/Time: 08/25/23 11:37
--- NOTE | 2023-08-25 10:20 | VEIN_ITS ---
[address] [address] Patient Name: NEO ZHENG MRN: [id number] date: 1960 Sex: F Assigned Patient Location: Current Patient Location: Accession/Order Number: [id number] Exam Date: 08/25/2023 10:27 Report Date: 08/25/2023 13:06 At the request of: NOY DONOVAN Procedure: VC Endovenous Ablation 1VeinRT EXAMINATION: VC Endovenous Ablation 1VeinRT HISTORY: I83.813 - Varicose veins of bilateral lower extremities w... The risks and benefits of the procedure had been previously discussed, and were rediscussed at length. Informed written consent was obtained. Stefan Ross RN and Sharon Castillo RDMS, RVT assisted. Time out procedure was performed. The right lower extremity was prepared and draped in the usual sterile fashion to allow knee flexion in the sterile field. Duplex ultrasound probe was draped in a sterile cover, sterile transmission gel was used. Venous mapping was performed with the areas of dilation and large tributaries marked. The total length was 62 cm from the entry 3 cm above the ankle to 3 cm below the Saphenofemoral junction. The diameter of the right great saphenous vein ranged from 7.0 mm. A 30 gauge needle and 1% buffered lidocaine was used to anesthetize the entry site. A 4 mm incision was made with a scalpel and the saphenous vein was entered percutaneously under direct ultrasound guidance with a micropuncture set, a single stick was successful in gaining access. A micro-guide wire was inserted and the needle removed. A micro-set including a dilator was inserted over the microwire and the needle and dilator were removed. A guide wire was inserted through the micro-set and guided through the saphenous vein to the saphenofemoral junction. The dilator was removed and an introducer sheath was inserted over the wire until the end of the sheath entered the saphenofemoral junction. The dilator and wire were removed and the 600 micron fiber was introduced and placed and positioned so that it extended beyond the sheath and was 3 cm distal to the saphenofemoral or saphenopopliteal junction. Final position of the fiber was determined by ultrasound guidance and duplex imaging. Rejicent anesthetic was delivered by ultrasound guidance. 275 cc of fluid was delivered along the entire course of the saphenous vein. The solution consisted of 1000 cc of normal saline with 40 mL of 1% lidocaine and 20 mL of sodium bicarbonate. A final positioning check was made. The energy source was turned on by means of the foot pedal and the fiber and sheath were withdrawn. The total number of Joules delivered was 3396. The laser was active for 424 seconds under continuous pulse, average laser use of 8 J. Laser start time: 11:09 AM Laser stop time: 11:18 AM Date: 08/25/2023. A duplex ultrasound revealed compressibility and flow at the saphenofemoral junction immediately after the procedure. Hemostasis at the access site was achieved. The skin incision of the saphenous vein was closed with a 4 x 4. A compression stocking was applied. Postop instructions were given. A follow up appointment was recommended and scheduled. The patient tolerated the procedure well. Electronically authenticated by: NOY DONOVAN Date: 08/25/2023 13:06
[2023-08-25] MEDS: LIDOCAINE HCL 1% 100 MG/10 ML MDV INJ (10:22)
[2023-08-25] MEDS: 0.9 % SODIUM CHLORIDE 500 ML, LIDOCAINE HCL 20 ML, SODIUM BICARBONATE 10 MEQ INJ (10:23)
[2023-08-25 10:30] VITALS: BP 130/70; BMI 27.4
--- OUTSIDE RECORDS SUMMARY | 2023-08-25 10:39 | XMS_ITS | CCD ---
Author Organization [facility] Inform ion Partnership [facility] Care Team Providers Care Underwriting Specialist Name Role Phone LNIDSEY, DR LEE Admitting Unavailable PORTILLO, DR LEE [...] Morphine; Translations: [morphine] Drug Allergy 05-30-2020 The [facility] Repository Problems Problem Classification Problem Date [...] 06-13-2020 Chronic Other aftercare (1 source) Other fdc (current) drug therapy; Translations: [OTH PILE DRIVING NOZZLEMAN CURRENT DRUG THERAPY] Onset: 06-13-2020 Episodic Other aftercare (1 source) intermediate (current) use of aspirin; Translations: [INTERMEDIATE CURRENT USE OF ASPIRIN] Onset: 06-06-2020 Episodic [...] Facility CALCULI, URINARYon 1 2,8 Dihydroxyadenine Normal [facility] Comment on above: Performed By: #### C ALCULI #### [facility] [address] [id number] Cristi Bina Ammonium Acid Urate Normal [facility] Comment on above: Performed By: #### C ALCULI #### [facility] [address] [phone] Cristi Bina Bilirubin Ql (U) Normal [facility] Comment on above: Performed By: #### C ALCULI #### [facility] [address] [phone] Cristi Bina Ca Oxalate Dihydrate 20 % Normal [facility] Comment on above: Performed By: #### C ALCULI #### [facility] [address] [phone] Cristi Bina CaHPO4 (Brushite) Normal [facility] Comment on above: Performed By: #### C ALCULI #### [facility] [address] [address] Cristi Bina Calcium Bilirubinate Normal [facility] Comment on above: Performed By: #### C ALCULI #### [facility] [address] [address] Cristi Bina Calcium Carbonate Normal [facility] Comment on above: Performed By: #### C ALCULI #### [facility] [address] [address] Cristi Bina Calcium Oxalate Monohydrate 80 % Normal [facility] Comment on above: Performed By: #### C ALCULI #### [facility] [address] [place] [address] Cristi Bina Calcium Palmitate Normal [facility] Comment on above: Performed By: #### C ALCULI #### [facility] [address] [place] [address] Cristi Bina Calcium Phosphate Normal [facility] Comment on above: Performed By: #### C ALCULI #### [facility] [address] [address] Cristi Bina Calcium Stearate Normal [facility] Comment on above: Performed By: #### C ALCULI #### [facility] [address] [place] [address] Cristi Bina Carbonate Apatite Normal [facility] Comment on above: Performed By: #### C ALCULI #### [facility] [address] [address] Cristi Bina Cellular Material Normal [facility] Comment on above: Performed By: #### C ALCULI #### [facility] [address] [place] [address] Cristi Bina Cholesterol Normal [facility] Comment on above: Performed By: #### C ALCULI #### [facility] [address] [place] [address] Cristi Bina Color (U) Brown Normal [facility] Comment on above: Performed By: #### C ALCULI #### [facility] [address] [address] Cristi Bina Comment Normal [facility] Comment on above: Performed By: #### C ALCULI #### [facility] [address] [address] Cristi Bina Comment: Comment Normal [facility] Comment on above: Result Comment: Vijay graham questions regarding Calculi Analysis contact [facility] at: [phone]. Performed By: #### C ALCULI #### [facility] [address] [place] [address] Cristi Bina Composition Comment Normal [facility] Comment on above: Result Comment: Perc entage (Represents the % composition) Performed By: #### C ALCULI #### [facility] [address] [place] [address] Cristi Bina Cystine Normal [facility] Comment on above: Performed By: #### C ALCULI #### [facility] [address] [place] [address] Cristi Bina Disclaimer: Comment Normal [facility] Comment on above: Result Comment: This test was developed and its performance characteristics determined by [facility]. It has not been cleared or approved by the Food and Drug Administration. Performed By: #### C ALCULI #### [facility] [address] [place] [address] Cristi Bina Dried Blood Normal [facility] Comment on above: Performed By: #### C ALCULI #### [facility] [address] [place] [address] Cristi Bina Drug or Metabolite Normal [facility] Comment on above: Performed By: #### C ALCULI #### [facility] [address] [place] [address] Cristi Bina Hydroxyapatite Normal [facility] Comment on above: Performed By: #### C ALCULI #### [facility] [address] [place] [address] Cristi Bina Mg NH4 PO4 (Struvite) Normal [facility] Comment on above: Performed By: #### C ALCULI #### [facility] [address] [address] Cristi Bina MgHPO4 (Newberyite) Normal [facility] Comment on above: Performed By: #### C ALCULI #### [facility] [address] [address] Cristi Bina Other component(s) Normal [facility] Comment on above: Performed By: #### C ALCULI #### [facility] [address] [address] Cristi Bina PDF . Normal [facility] Comment on above: Performed By: #### C ALCULI #### [facility] [address] [address] Cristi Bina Photo Comment [facility] Comment on above: Result Comment: Phot neftali will follow under a separate cover Performed By: #### C ALCULI #### [facility] [address] [address] Cristi Bina Please note: Comment Normal [facility] Comment on above: Result Comment: Calc josé manuel report will follow via computer, mail or family literacy coordinator delivery. Performed By: #### C ALCULI #### [facility] [address] [address] Cristi Bina Size 4x6 [facility] Comment on above: Result Comment: Mult iple pieces received. Dimensions of the largest piece reported. Performed By: #### C ALCULI #### [facility] [address] [address] Cristi Bina Sodium Acid Urate Normal [facility] Comment on above: Performed By: #### C ALCULI #### [facility] [address] [address] Cristi Bina Source Comment Normal [facility] Comment on above: Result Comment: Righ t Ureter Performed By: #### C ALCULI #### [facility] [address] [address] Cristi Bina Triamterene [facility] Comment on above: Performed By: #### C ALCULI #### [facility] [address] [address] Cristi Bina Uric Acid Normal [facility] Comment on above: Performed By: #### C ALCULI #### [facility] [address] [place], [place] [address] Cristi Bina Uric Acid Dihydrate Normal [facility] Comment on above: Performed By: #### C ALCULI #### [facility] [address] [place], [place] [address] Cristi Bina Weight 122 mg Normal [facility] Comment on above: Performed By: #### C ALCULI #### [facility] [address] [place], [place] [address] Cristi Bina Xanthine Normal [facility] Comment on above: Performed By: #### C ALCULI #### [facility] [address] [address] Cristi Bina XR KUB 1 VIEWon 06-06-2020 [...] by: MANN DIAZ Date: 2020-06-06 07:31 Normal [facility] XR FLUORO < 1 HRon XR [...] by: NOY DONOVAN Date: 2020-05-30 15:24 Normal [facility] Encounters Encounter Date Encounter Type Care Provider Facility Start: 07-27-2023 End: 07-27-2023 ambulatory SELF REFERRAL Facility:[facility] Start: 05-24-2023 End: 05-24-2023 ambulatory GRIS MOURA Not Available Start: 06-06-2020 End: 06-06-[address] JESUS PORTILLO Facility:[facility] Start: 05-30-2020 End: 05-30-[address] JESUS PORTILLO Facility:[facility] Start: 05-29-[address] JESUS PORTILLO [facility] ity:[facility] Payers Date Payer Category Payer Medicaid [id number] 2022 Unknown [id number] 1961 Unknown [id number] 1961 Unknown 1960 Unknown [id number] 2.16.84 [id number] 1960 Unknown [id number] 2.16.84 [id number] 1960 Unknown [id number] 2.16.84 [id number] 1960 Unknown [id number] 2.16.84 [id number] 1960 Unknown [id number] 2.16.8 [id number] Clinical Note 05-30-2020 Note Date & Type Note Facility 05-30-2020 Note OPERATIVE NOTE OPERATION DATE: 05-30-20 ANESTHETIC:General by LMA. PREOPERATIVE DIAGNOSIS: Right ureteral calculus. POSTOPERATIVE DIAGNOSIS:Same. PROCEDURE NAME: 1. Cystoscopy. 2. Right rigid ureteral dilation. 3. Right ureteroscopy. 4. Holmium laser lithotripsy of two ureteral calculi. 5. Stone basket extraction of two ureteral calculi. 6. Placement of a 7 Slovenian variable length right ureteral stent. COMPLICATIONS: None. [...] fashion. I started by passing a 22 Slovenian Olympus cystoscope per urethra and into the [...] I then used an 8 and 10 [place] rigid dilator to dilate the distal right [...] the bladder. I then slid a 7 [place] variable length right ureteral stent over the wire up into the kidney and then removed the wire. There were good curls in the kidney and in the bladder. I then used the Xanodyne evacuator to get all the stone pieces out of the bladder and these were sent for stone analysis. The bladder was then drained of it's contents and the scope was then removed. The anesthetic was then reversed. She was then transferred to a [facility] bed and wheeled to the Recovery Room in stable condition. She tolerated it well. There were no complications. She will be discharged to home later today with a script for Keflex 500 mg daily #21 and oxybutynin ER 10 mg daily #21. We will bring her back in a week or two for right ESWL and stent removal. [facility] Signed and Approved by: DR JESUS PORTILLO . 06/06/2020 11:38:00 [facility] Summary Purpose Family History No Family History Records FoundNo Family History Records FoundNo Family History Records Found Advance Directives No Advanced Directives Records FoundNo Advanced Directives Records FoundNo Advanced Directives Records Found Additional Source Comments INFORMATION SOURCE (unrecogn ized section and content) DATE CREATED AUTHOR 06/15/2020 [facility] DATE CREATED AUTHOR AUTHOR'S ORGANIZ ATION 05/25/2023 [facility] EPIC DATE CREATED AUTHOR AUTHOR'S ORGANIZ ATION 07/28/2023 [facility] FOR RECORDS PERTAINING TO PATIENTS WHO ARE [...] BE BASED ON THE PRIMARY CLINICAL RECORDS. [employer] provides no warranty or guarantee of the accuracy or completeness of information in this document.
== END 2023-08-25 11:37 | disposition home or self-care (01) ==
PROVIDERS: PCP Radiology Diagnostic Radiology; Visit Provider Radiology Diagnostic Radiology
DX: I83.813 Varicose veins of bilateral lower extremities with pain (principal)
CPT/HCPCS: 36478

== ENCOUNTER 2023-09-07 09:42 | Outpatient (OUT) | payer MEDICARE, SELFPAY ==
[2023-09-06 14:49] VITALS: BMI 27.4
--- NOTE | 2023-09-06 14:49 | V.VEINS.HP ---
Vital Signs 09/06/23 14:49 Height 5 ft 6 in Weight 77 kg BMI 27.4 Varicose Veins Patient in this day for follow up ultrasound post EVLT of right GSV. Jericho Santana MD personally performed the services described in this documentation, as scribed by Sharon Castillo RVT, RDMS in my presence and it is both accurate and complete. Sharon Santana RVT, RDMS, am scribing for, and in the presence of, Dr. Jericho Aviles and in the presence of the patient. medial thigh: bilateral, knee: bilateral, calf: bilateral, ankle: bilateral and zepeda: bilateral dull, sharp and intermittent 8 2 months Worsened in recent months: Yes standing bed rest, elevating extremities and compression stockings Reports muscle spasms of leg, heaviness, edema and leg edema History of lower extremity trauma: No Superficial thrombophlebitis: No Family history of varicose veins: unknown Has patient had previous lower extremity venous surgery: No Patient has previously received the following treatment(s) for lower extremity varicose veins: Reports sclerotherapy Does patient have a history of : yes Does patient intend to have future pregnancies: no Has patient had lower extremity venous scan with relux testing: Yes Support hose used: Yes Problems walking or doing physical activity: Yes How does it affect you: Pain and heaviness when walking Do you walk much: Yes Do you stand much: Yes Medication compliance: good Review of Systems ROS Narrative Jericho Santana MD personally performed the services described in this documentation, as scribed by Sharon Castillo RVT, RDMS in my presence and it is both accurate and complete. Sharon Santana RVT, RDMS, am scribing for, and in the presence of, Dr. Jericho Aviles and in the presence of the patient. Status of ROS 10 or more systems reviewed and unremarkable except as noted in history and below Cardiovascular Reports: edema, swelling of feet/ankles and leg pain with exertion Musculoskeletal Reports: extremity pain, extremity swelling, limited range of motion, joint swelling, muscle cramps and muscle weakness Integumentary/Breast Reports: itching, redness, skin pain, skin tenderness, skin swelling, new lesion, non-healing lesion and changes in skin color Neurological Reports: numbness in extremities and weakness in extremities [facility] Medical History (Updated 08/24/23 @ 15:05 by Stefan Ross) Phlebitis and thrombophlebitis of superficial vessels of right lower extremity ?I80.01 - Phlebitis and thrombophlebitis of superficial vessels of right lower extremity (ICD-10) Phlebitis and thrombophlebitis of superficial vessels of left lower extremity ?I80.02 - Phlebitis and thrombophlebitis of superficial vessels of left lower extremity (ICD-10) Varicose veins of bilateral lower extremities with pain ?I83.813 - Varicose veins of bilateral lower extremities with pain (ICD-10) Kidney stone ?N20.0 - Calculus of kidney (ICD-10) Insomnia ?G47.00 - Insomnia, unspecified (ICD-10) Hypotension ?I95.9 - Hypotension, unspecified (ICD-10) Hypertension ?I10 - Essential (primary) hypertension (ICD-10) Surgical History (Updated 08/10/23 @ 15:02 by Sharon Castillo) Status post ablation of incompetent vein using laser ?Z98.890 - Other specified postprocedural states (ICD-10) History of bilateral oophorectomy ?Z90.722 - Acquired absence of ovaries, bilateral (ICD-10) History of plastic surgery ?Z98.890 - Other specified postprocedural states (ICD-10) History of gastric bypass ?Z98.84 - Bariatric surgery status (ICD-10) Family History (Updated 08/10/23 @ 15:02 by Sharon Castillo) Other Family history not known due to adoption Social History (Updated 08/10/23 @ 15:03 by Sharon Castillo) Within the past year, how often did you have a drink containing alcohol: 2-4 times a month Smoking status: Never smoker Non-prescribed substance use: denies use Meds Home Medications and Allergies Home Medications ?Medication ?Instructions ?Recorded ?Confirmed ?Type aspirin 81 mg capsule 81 mg PO DAILY 08/10/23 08/10/23 History carvedilol 6.25 mg tablet (Coreg) 6.25 mg PO BID 08/10/23 08/10/23 History cholecalciferol (vitamin D3) 50 50 mcg PO DAILY 08/10/23 08/10/23 History mcg (2,000 unit) capsule (D3-1999) levothyroxine 100 mcg tablet 100 mcg PO DAILY 08/10/23 08/10/23 History (Euthyrox) trazodone 50 mg tablet 25 mg PO DAILY 08/10/23 08/10/23 History triamterene 37.5 1 cap PO DAILY 08/10/23 08/10/23 History mg-hydrochlorothiazide 25 mg capsule Allergies Allergy/AdvReac Type Severity Reaction Status Date / Time No Known Drug Allergies Allergy Verified 07/30/23 17:01 Exam Narrative Exam Narrative: Jericho Santana MD personally performed the services described in this documentation, as scribed by Sharon Castillo RVT, RDMS in my presence and it is both accurate and complete. Sharon Santana RVT, RDMS, am scribing for, and in the presence of, Dr. Jericho Aviles and in the presence of the patient. Constitutional Documenting provider has reviewed patient's vital signs: yes Common normals: oriented x3 Lymph Lymphatic: no lymphedema noted Cardio Common normals: regular rate Rate: regular rate Peripheral pulses: posterior tibial pulses present and dorsalis pedis pulses present Extremity Common normals: normal capillary refill General: calf tenderness and edema Right lower extremity: upper leg and lower leg Left lower extremity: upper leg and lower leg Neuro Common normals: oriented x3 Results Imaging Venous US: Radiologist's impression: The ultrasound demonstrates Heat induced thrombus visualized 1.5cm from the SFJ. The heat induced thrombus extends from groin to mid calf. Assessment and Plan Assessment and Plan (1) Phlebitis and thrombophlebitis of superficial vessels of right lower extremity: (2) Varicose veins of bilateral lower extremities with pain: Plan Patient in today for follow up ultrasound of lower extremity following treatment of EVLT of right leg GSV completed on 08/25/23. Jericho Santana MD personally performed the services described in this documentation, as scribed by Sharon Castillo RVT, RDMS in my presence and it is both accurate and complete. Sharon Santana RVT, RDMS, am scribing for, and in the presence of, Dr. Jericho Aviles and in the presence of the patient.
--- NOTE | 2023-09-06 14:54 | P.DS_ITS ---
Discharge Plan Discharge Disposition: Home, Self-Care Outpatient Diagnostics: VC Endovenous Ablation 1VeinLT (Routine) Timeframe: 2 Weeks Facility: [facility] - Location: [facility] Center Ordered By: Jericho Aviles Follow Up Appointments: 09/21/2023 Plan of Treatment: EVLT of left leg SSV Print Language: Malay Discharge Date/Time: 09/07/23 10:52
--- NOTE | 2023-09-07 09:48 | VEIN_ITS ---
Patient Name: NEO ZHENG MR#: [id number] : 1960 Exam Date: 09/07/2023 Ordering Doctor: DR JERICHO AVILES M.D. RADIOLOGY REPORT PROCEDURE: VC EXT VENOUS RT LMTD COMPARISON: None. INDICATIONS: I80.01 - Phlebitis and thrombophlebitis of superficial ve... TECHNIQUE: Lower extremity medrano scale and Duplex Doppler evaluation of the deep venous system from the inguinal ligament through the calf veins. FINDINGS: REGION: Right lower extremity. THROMBI: Negative for DVT. Heat induced thrombus visualized 1.5cm from the SFJ. The heat induced thrombus extends from groin to distal calf. COMPRESSIBILITY: Non-compressible segments corresponding to thrombus FLOW: Areas of no flow corresponding to thrombus CONCLUSION: Post ablation occlusion of the treated right great saphenous vein with heat induced thrombus 1.5 cm from the saphenofemoral junction Dictated by: Jericho Aviles MD on 09/07/2023 at 10:31 Approved by: Jericho Aviles MD on 09/07/2023 at 10:32
--- NOTE | 2023-09-07 09:48 | VEIN_ITS ---
Patient Name: NEO ZHENG MR#: [id number] : 1960 Exam Date: 09/07/2023 Ordering Doctor: DR JERICHO AVILES M.D. RADIOLOGY REPORT PROCEDURE: [facility] EST LMTD [facility]IN [facility] - OFFICE VISIT FOLLOW UP COMPARISON: [facility], 08/10/2023. PROGRESS NOTES: The patient reports no significant problems following intravenous laser ablation of the right great saphenous vein. The patient did wear her compression stocking. The patient did not require oral analgesics. Physical exam demonstrates no significant bruising. No erythema or warmth to slow cellulitis of thrombophlebitis. No active ulceration. The incision is sealed. Thrombosed right great saphenous vein can be partially palpated. Review of the ultrasound performed the same day demonstrates occlusive thrombus extending throughout the treated right great saphenous vein with heat induced thrombus 1.5 cm saphenofemoral junction. No deep vein thrombus. The patient expressed a desire to proceed with treatment of incompetent left small saphenous vein. VEIN/[facility] LMTD IMPRESSION: 1. Successful ablation of the right great saphenous vein 2. Persistent bilateral incompetent small saphenous vein. PLAN: Intravenous laser ablation left small saphenous vein Nurse notes, history and physical were reviewed and confirmed, see attached forms. The nurse was present throughout the physical exam and consultation Dictated by: Jericho Aviles MD on 09/07/2023 at 12:08 Approved by: Jericho Aviles MD on 09/07/2023 at 12:09
--- OUTSIDE RECORDS SUMMARY | 2023-09-07 10:05 | XMS_ITS | CCD ---
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] Onset: 06-13-2020 Episodic Other aftercare (1 source) [facility] (current) use of aspirin; Translations: [NURSING HOME CURRENT USE OF ASPIRIN] Onset: 06-06-2020 [...] URINARYon 1 2,8 Dihydroxyadenine Normal [facility] Comment on above: Performed By: #### C ALCULI #### [facility] [address] [id number] Cristi Bina Ammonium Acid Urate Normal [facility] Comment on above: Performed By: #### C ALCULI #### [facility] [address] [id number] Cristi Bina Bilirubin Ql (U) Normal [facility] Comment on above: Performed By: #### C ALCULI #### [facility] [address] [id number] Cristi Bina Ca Oxalate Dihydrate 20 % Normal [facility] Comment on above: Performed By: #### C ALCULI #### [facility] [address] [id number] Cristi Bina CaHPO4 (Brushite) Normal [facility] Comment on above: Performed By: #### C ALCULI #### [facility] [address] [address] Cristi Bina Calcium Bilirubinate Normal [facility] Comment on above: Performed By: #### C ALCULI #### [facility] [address] [address] Cristi Bina Calcium Carbonate Normal [facility] Comment on above: Performed By: #### C ALCULI #### [facility] [address] [address] Cristi Bina Calcium Oxalate Monohydrate 80 % Normal [facility] Comment on above: Performed By: #### C ALCULI #### [facility] [address] [place] [address] Cristi Bina Calcium Palmitate Normal [facility] Comment on above: Performed By: #### C ALCULI #### [facility] [address] [place] [address] Cristi Bina Calcium Phosphate Normal [facility] Comment on above: Performed By: #### C ALCULI #### [facility] [address] [address] Cristi Bina Calcium Stearate Normal [facility] Comment on above: Performed By: #### C ALCULI #### [facility] [address] [place] [address] Cristi Bina Carbonate Apatite Normal [facility] Comment on above: Performed By: #### C ALCULI #### [facility] [address] [address] Cristi Bina Cellular Material Normal [facility] Comment on above: Performed By: #### C ALCULI #### [facility] [address] [place] [address] Cristi Bina Cholesterol Normal [facility] Comment on above: Performed By: #### C ALCULI #### [facility] [address] [place] [address] Cristi Bina Color (U) Brown Normal [facility] Comment on above: Performed By: #### C ALCULI #### [facility] [address] [address] Cristi Bina Comment Normal [facility] Comment on above: Performed By: #### C ALCULI #### [facility] [address] [address] Cristi Bina Comment: Comment Normal [facility] Comment on above: Result Comment: Vijay graham questions regarding Calculi Analysis contact [facility] at: [phone]. Performed By: #### C ALCULI #### [facility] [address] [place] [address] Cristi Bina Composition Comment Normal [facility] Comment on above: Result Comment: Perc entage (Represents the % composition) Performed By: #### C ALCULI #### [facility] [address] [place] [address] Cristi Bina Cystine Normal [facility] Comment on above: Performed By: #### C ALCULI #### [facility] [address] [place] [address] Cristi Bina Disclaimer: Comment Normal [facility] Comment on above: Result Comment: This test was developed and its performance characteristics determined by [facility]. It has not been cleared or approved by the Food and Drug Administration. Performed By: #### C ALCULI #### [facility] [address] [place] [address] Cristi Bina Dried Blood Normal [facility] Comment on above: Performed By: #### C ALCULI #### [facility] [address] [place] [address] Cristi Bina Drug or Metabolite Normal [facility] Comment on above: Performed By: #### C ALCULI #### [facility] [address] [place] [address] Cristi Bina Hydroxyapatite Normal [facility] Comment on above: Performed By: #### C ALCULI #### [facility] [address] [place] [address] Cristi Bina Mg NH4 PO4 (Struvite) Normal [facility] Comment on above: Performed By: #### C ALCULI #### [facility] [address] [address] Cristi Bina MgHPO4 (Newberyite) Normal [facility] Comment on above: Performed By: #### C ALCULI #### [facility] [address] [address] Cristi Bina Other component(s) Normal [facility] Comment on above: Performed By: #### C ALCULI #### [facility] [address] [address] Cristi Bina PDF . Normal [facility] Comment on above: Performed By: #### C ALCULI #### [facility] [address] [address] Cristi Bina Photo Comment [facility] Comment on above: Result Comment: Phot neftali will follow under a separate cover Performed By: #### C ALCULI #### [facility] [address] [address] Cristi Bina Please note: Comment Normal [facility] Comment on above: Result Comment: Calc josé manuel report will follow via computer, mail or farm helper delivery. Performed By: #### C ALCULI #### [facility] [address] [address] Cristi Bina Size 4x6 [facility] Comment on above: Result Comment: Mult iple pieces received. Dimensions of the largest piece reported. Performed By: #### C ALCULI #### [facility] [address] [address] Cristi Bina Sodium Acid Urate Normal [facility] Comment on above: Performed By: #### C ALCULI #### [facility] [address] [address] Cristi Bina Source Comment Normal [facility] Comment on above: Result Comment: Righ t Ureter Performed By: #### C ALCULI #### [facility] [address] [address] Cristi Bina Triamterene [facility] Comment on above: Performed By: #### C ALCULI #### [facility] [address] [address] Cristi Bina Uric Acid Normal [facility] Comment on above: Performed By: #### C ALCULI #### [facility] [address], [place] [address] Cristi Bina Uric Acid Dihydrate Normal [facility] Comment on above: Performed By: #### C ALCULI #### [facility] [address], [place] [address] Cristi Bina Weight 122 mg Normal [facility] Comment on above: Performed By: #### C ALCULI #### [facility] [address], [place] [address] Cristi Bina Xanthine Normal [facility] Comment on above: Performed By: #### C ALCULI #### [facility] [address] [address] Cristi Bina XR KUB 1 VIEWon 06-06-2020 [...] DIAZ Date: 2020-06-06 07:31 Normal [facility] XR FLUORO < 1 HRon [...] DONOVAN Date: 2020-05-30 15:24 Normal [facility] Encounters Encounter Date Encounter Type Care Provider Facility Start: 07-27-2023 End: 07-27-2023 ambulatory SELF REFERRAL Facility:[facility] Start: 05-24-2023 End: 05-24-2023 ambulatory GRIS MOURA Not Available Start: 06-06-2020 End: 06-06-[address] JESUS PORTILLO Facility:[facility] Start: 05-30-2020 End: 05-30-[address] JESUS PORTILLO Facility:[facility] Start: 05-29-[address] JESUS PORTILLO [facility] it[facility] Payers Date Payer Category Payer Medicaid [id number] 2022 Unknown [id number] 1961 Unknown [id number] 1961 Unknown 1960 Unknown [id number] 2.16.84 [id number] 1960 Unknown [id number] 2.16.84 [id number] 1960 Unknown [id number] 2.16.84 [id number] 1960 Unknown [id number] 2.16.84 [id number] 1960 Unknown [id number] 2.16.8 [id number] Clinical Note 05-30-2020 Note Date & Type Note Facility 05-30-2020 Note OPERATIVE NOTE OPERATION DATE: 05-30-20 ANESTHETIC:General by LMA. PREOPERATIVE DIAGNOSIS: Right ureteral calculus. POSTOPERATIVE DIAGNOSIS:Same. PROCEDURE NAME: 1. Cystoscopy. 2. Right rigid ureteral dilation. 3. Right ureteroscopy. 4. Holmium laser lithotripsy of two ureteral calculi. 5. Stone basket extraction of two ureteral calculi. 6. Placement of a 7 Pashto variable length right ureteral stent. COMPLICATIONS: None. [...] fashion. I started by passing a 22 Pashto Olympus cystoscope per urethra and into the [...] I then used an 8 and 10 pitcairn islander rigid dilator to dilate the distal right [...] the bladder. I then slid a 7 pitcairn islander variable length right ureteral stent over the wire up into the kidney and then removed the wire. There were good curls in the kidney and in the bladder. I then used the Sociocast evacuator to get all the stone pieces out of the bladder and these were sent for stone analysis. The bladder was then drained of it's contents and the scope was then removed. The anesthetic was then reversed. She was then transferred to a [facility] bed and wheeled to the Recovery Room in stable condition. She tolerated it well. There were no complications. She will be discharged to home later today with a script for Keflex 500 mg daily #21 and oxybutynin ER 10 mg daily #21. We will bring her back in a week or two for right ESWL and stent removal. [facility] Signed and Approved by: DR JESUS PORTILLO . 06/06/2020 11:38:00 [facility] Summary Purpose Family History No Family History Records FoundNo Family History Records FoundNo Family History Records Found Advance Directives No Advanced Directives Records FoundNo Advanced Directives Records FoundNo Advanced Directives Records Found Additional Source Comments INFORMATION SOURCE (unrecogn ized section and content) DATE CREATED AUTHOR 06/15/2020 [facility] DATE CREATED AUTHOR AUTHOR'S ORGANIZ ATION 05/25/[address] [facility] EPIC DATE CREATED AUTHOR AUTHOR'S ORGANIZ ATION 07/28/2023 [facility] FOR RECORDS PERTAINING TO PATIENTS WHO [...] BE BASED ON THE PRIMARY CLINICAL RECORDS. [employer] provides no warranty or guarantee of the accuracy or completeness of information in this document.
== END 2023-09-07 10:52 | disposition home or self-care (01) ==
LOC: VC 09:43
PROVIDERS: PCP Radiology Diagnostic Radiology; Visit Provider Radiology Diagnostic Radiology
DX: I80.01 Phlebitis and thrombophlebitis of superficial vessels of right lower extremity (principal)
CPT/HCPCS: 93971; G0463

== ENCOUNTER 2023-09-21 12:54 | Outpatient (OUT) | payer MEDICARE, SELFPAY ==
--- NOTE | 2023-09-20 14:31 | VEINCLINIC_ITS ---
Vital Signs 09/20/23 14:38 Height 5 ft 6 in Weight 77.111 kg BMI 27.4 BP 118/64 BP Location Right Brachial BP Position Sitting BP Cuff Size Adult BP Source Manual Cuff Respiration 18 Pulse 70 Pulse Source Monitor Pulse Oximetry (%) 94 L Oxygen Delivery Method Room Air Varicose Veins Patient in this day for EVLT of left SSV Jericho Santana MD personally performed the services described in this documentation, as scribed by Stefan Ross RN in my presence and it is both accurate and complete. Stefan Santana RN, am scribing for, and in the presence of, Dr. Jericho Aviles and in the presence of the patient. medial thigh: bilateral, knee: bilateral, calf: bilateral, ankle: bilateral and zepeda: bilateral dull, sharp and intermittent 8 2 months Worsened in recent months: Yes standing bed rest, elevating extremities and compression stockings Reports muscle spasms of leg, heaviness, edema and leg edema History of lower extremity trauma: No Superficial thrombophlebitis: No Family history of varicose veins: unknown Has patient had previous lower extremity venous surgery: No Patient has previously received the following treatment(s) for lower extremity varicose veins: Reports sclerotherapy Does patient have a history of : yes Does patient intend to have future pregnancies: no Has patient had lower extremity venous scan with relux testing: Yes Support hose used: Yes Problems walking or doing physical activity: Yes How does it affect you: Pain and heaviness when walking Do you walk much: Yes Do you stand much: Yes Medication compliance: good Review of Systems ROS Narrative Jericho Santana MD personally performed the services described in this documentation, as scribed by Stefan Ross RN in my presence and it is both accurate and complete. Stefan Santana RN, am scribing for, and in the presence of, Dr. Jericho Aviles and in the presence of the patient. Status of ROS 10 or more systems reviewed and unremark able except as noted in history and below Cardiovascular Reports: edema, swelling of feet/ankles and leg pain with exertion Musculoskeletal Reports: extremity pain, extremity swelling, limited range of motion, joint swelling, muscle cramps and muscle weakness Integumentary/Breast Reports: itching, redness, skin pain, skin tenderness, skin swelling, new lesion, non-healing lesion and changes in skin color Neurological Reports: numbness in extremities and weakness in extremities PFSH PFSH Medical History (Updated 08/24/23 @ 15:05 by Stefan Ross) Phlebitis and thrombophlebitis of superficial vessels of right lower extremity ?I80.01 - Phlebitis and thrombophlebitis of superficial vessels of right lower extremity (ICD-10) Phlebitis and thrombophlebitis of superficial vessels of left lower extremity ?I80.02 - Phlebitis and thrombophlebitis of superficial vessels of left lower extremity (ICD-10) Varicose veins of bilateral lower extremities with pain ?I83.813 - Varicose veins of bilateral lower extremities with pain (ICD-10) Kidney stone ?N20.0 - Calculus of kidney (ICD-10) Insomnia ?G47.00 - Insomnia, unspecified (ICD-10) Hypotension ?I95.9 - Hypotension, unspecified (ICD-10) Hypertension ?I10 - Essential (primary) hypertension (ICD-10) Surgical History (Updated 08/10/23 @ 15:02 by Sharon Castillo) Status post ablation of incompetent vein using laser ?Z98.890 - Other specified postprocedural states (ICD-10) History of bilateral oophorectomy ?Z90.722 - Acquired absence of ovaries, bilateral (ICD-10) History of plastic surgery ?Z98.890 - Other specified postprocedural states (ICD-10) History of gastric bypass ?Z98.84 - Bariatric surgery status (ICD-10) Family History (Updated 08/10/23 @ 15:02 by Sharon Castillo) Other Family history not known due to adoption Social History (Updated 08/10/23 @ 15:03 by Sharon Castillo) Within the past year, how often did you have a drink containing alcohol: 2-4 times a month Smoking status: Never smoker Non-prescribed substance use: denies use Meds Home Medications and Allergies Home Medications ?Medication ?Instructions ?Recorded ?Confirmed ?Type aspirin 81 mg capsule 81 mg PO DAILY 08/10/23 08/10/23 History carvedilol 6.25 mg tablet (Coreg) 6.25 mg PO BID 08/10/23 08/10/23 History cholecalciferol (vitamin D3) 50 50 mcg PO DAILY 08/10/23 08/10/23 History mcg (2,000 unit) capsule (D3-2000) levothyroxine 100 mcg tablet 100 mcg PO DAILY 08/10/23 08/10/23 History (Euthyrox) trazodone 50 mg tablet 25 mg PO DAILY 08/10/23 08/10/23 History triamterene 37.5 1 cap PO DAILY 08/10/23 08/10/23 History mg-hydrochlorothiazide 25 mg capsule Allergies Allergy/AdvReac Type Severity Reaction Status Date / Time No Known Drug Allergies Allergy Verified 07/30/23 17:01 Exam Narrative Exam Narrative: I, Jericho Aviles MD personally performed the services described in this documentation, as scribed by Stefan Ross RN in my presence and it is both accurate and complete. I, Stefan Ross RN, am scribing for, and in the presence of, Dr. Jericho Aviles and in the presence of the patient. Constitutional Documenting provider has reviewed patient's vital signs: yes Common normals: oriented x3 Lymph Lymphatic: no lymphedema noted Cardio Common normals: regular rate Rate: regular rate Peripheral pulses: posterior tibial pulses present and dorsalis pedis pulses present Extremity Common normals: normal capillary refill General: calf tenderness and edema Right lower extremity: upper leg and lower leg Left lower extremity: upper leg and lower leg Neuro Common normals: oriented x3 Assessment and Plan Assessment and Plan (1) Varicose veins of bilateral lower extremities with pain: Procedures Procedure Instructions Procedures Plan of care: Risks and benefits of the procedure were discussed at length and informed written consent was obtained.? Time-out completed for verification of correct patient, procedure and site.? Staff present during time-out: Stefan Ross RN,? Jericho Aviles MD, [facility]. Time Out Time__1326 Patient prepped and procedure performed in usual sterile fashion. Risk of injury related to use of Diode laser and/or laser devices?__CR___ ? Serial number of laser used :? [id number] Control panel self test performed, electrical cords in good condition, floor is dry, basin of water available, fire extinguisher in close proximity_CR__ Polycarbonate goggles available and Laser warning signs outside of doors___CR__ Eye protection provided to patient and staff in room_CR___ Use of laser retardant drapes and dull blackened instruments as directed__CR___ Use of nonflammable prep solutions and use of saline soaked sponges to protect tissues as indicated _CR___ Length __28___ cm Laser operated by _Dr. Aviles Physician verbal confirmation laser locked in place__CR__ Laser start time (date and time) _09/21/2023@__1335 Laser stop time(date and time) __09/21/2023@_1338 [place] _8.0___ Average laser use __1369 Joules Average laser use__171 seconds Pulse continuous ___CR_? Pulse intermittent ___ Amount of Tumescent used _125cc Evaluated patient for signs and symptoms of electrical injury __CR___ ? Skin clear at insertion site __CR___ Patient tolerated procedure well.? Left leg Coban dressing applied to access site.? Applied Left thigh high leg compression stocking. Will return on 09/28/2023 for Left leg limited venous ultrasound and exam. IJericho MD personally performed the services described in this documentation, as scribed by Stefan Ross RN in my presence and it is both accurate and complete. I, Stefan Ross RN, am scribing for, and in the presence of, Dr. Jericho Aviles and in the presence of the patient.
--- NOTE | 2023-09-20 14:37 | W.VEIN ---
Discharge Plan Discharge Disposition: Home, Self-Care Outpatient Diagnostics: VC Facility EST LMTD (Routine) Timeframe: 2 Weeks Facility: [facility] - Location: [facility] Ordered By: Jericho Aviles VC EXT Venous LT Limited (Routine) Timeframe: 2 Weeks Facility: [facility] - Location: Vein Center Ordered By: Jericho Aviles Follow Up Appointments: 09/28/2023 Plan of Treatment: f/u evaluation with physician along with left leg limited u/s Patient Instructions: Endovenous Ablation (DC) Print Language: Nepali Discharge Date/Time: 09/21/23 13:29
[2023-09-20 14:38] VITALS: BP 118/64; PULSE 70; O2SAT 94; BMI 27.4
[2023-09-21] MEDS: LIDOCAINE HCL 1% 100 MG/10 ML MDV INJ (12:52)
[2023-09-21] MEDS: 0.9 % SODIUM CHLORIDE 500 ML, LIDOCAINE HCL 20 ML, SODIUM BICARBONATE 10 MEQ INJ (12:53)
--- NOTE | 2023-09-21 12:55 | VEIN_ITS ---
[address] [address] Patient Name: NEO ZHENG MRN: [id number] date: 1960 Sex: F Assigned Patient Location: Current Patient Location: Accession/Order Number: [id number] Exam Date: 09/21/2023 13:05 Report Date: 09/21/2023 14:23 At the request of: MANN DIAZ Procedure: VC Endovenous Ablation 1VeinLT EXAMINATION: VC Endovenous Ablation 1VeinLT HISTORY: I83.813 - Varicose veins of bilateral lower extremities w... COMPARISON: No relevant comparison available. TECHNIQUE: The risks and benefits of the procedure had been previously discussed, and were rediscussed at length. Informed written consent was obtained. Radha Castillo and Stefan Ross assisted. Time out procedure was performed. The left lower extremity was prepared and draped in the usual sterile fashion. Duplex ultrasound probe was draped in a sterile cover, sterile transmission gel was used. Venous mapping was performed with the areas of dilation and large tributaries marked. The total length was 28 cm from the entry 5 cm above the lateral malleolus to when the vein begins to dive into the muscle fascia. The diameter of the small saphenous vein ranged from 4-6 mm. A 30 gauge needle and 1% buffered lidocaine was used to anesthetize the entry site. A 4 mm incision was made with a scalpel and the saphenous vein was entered percutaneously under direct ultrasound guidance with a micropuncture set, a single stick was successful in gaining access. A micro-guide wire was inserted and the needle removed. A micro-set including a dilator was inserted over the microwire and the needle and dilator were removed. A 0.018 guide wire was inserted through the micro-set and threaded through the saphenous vein to the saphenofemoral junction. The dilator was removed and an introducer sheath was inserted over the wire until the end of the sheath entered the saphenofemoral junction. The dilator and wire were removed and the 600 micron fiber was introduced and placed and positioned so that it extended beyond the sheath and was 3 cm peripheral to the saphenofemoral femoral junction. Final position of the fiber was determined by ultrasound guidance and duplex imaging. Tumescent anesthetic was delivered by ultrasound guidance. 125 cc of fluid was delivered along the entire course of the saphenous vein. The solution consisted of 1000 cc of normal saline with 40 mL of 1% lidocaine and 20 mL of sodium bicarbonate. A final positioning check was made. The energy source was turned on by means of the foot pedal and the fiber and sheath were withdrawn. The total number of Joules delivered was 1369. The laser was active for 171 seconds under continuous pulse, average laser use of 8 J. Laser start time 1335, 09/21/2023 . Laser stop time 1338 09/21/2023 . A duplex ultrasound revealed compressibility and flow at the saphenofemoral junction immediately after the procedure. Hemostasis at the access site was achieved. The skin incision of the saphenous vein was closed with a 4 x 4. A compression stocking was applied. Postop instructions were given. A follow up appointment was recommended and scheduled. The patient tolerated the procedure well and was discharged in good condition . VEIN/VC Endovenous Ablation 1VeinLT IMPRESSION: Technically successful endovenous laser ablation left small saphenous vein Electronically authenticated by: MANN DIAZ Date: 09/21/2023 14:23
--- OUTSIDE RECORDS SUMMARY | 2023-09-21 13:16 | XMS_ITS | CCD ---
Author Organization [facility] Care Team Providers Care Internet Designer Name Role Phone LINDSEY, DR LEE Admitting Unavailable PORTILLO, DR LEE Attending Unavailable ALLSOP, DR LANDRY Referring Unavailable PORTILLO, DR LEE Consulting Unavailable WEST, DR MANN Bueno Consulting Unavailable JACQUIE JOHNSON Consulting Unavailable PORTILLO, DR LEE Admitting Unavailable PORTILLO, DR LEE Attending Unavailable PORTILLO, DR LEE Consulting Unavailable ALLSOP, DR LANDRY Referring Unavailable ZIEBER, DR NOY De Leon Consulting Unavailable ANNE RIVERA Consulting Unavailable LINDSEY, DR LEE Admitting Unavailable LINDSEY, DR LEE Attending Unavailable Layla Montalvo Primary Care Physician Yolis Boyd Attending Unavailable Yolis Boyd Admitting Unavailable REFERRAL, SELF Attending Unavailable Yolis Boyd Attending Unavailable GRIS MOURA Attending Unavailable LAYLA MONTALVO Attending Unavailable Allergies Allergy Classification Reported Allergen(s) Allergy Type Date of Onset Reaction(s) Facility Opioid Agonists (1 source) Morphine Drug Allergy 1 [facility] Repository (4 sources) Morphine; Translations: [morphine] Drug Allergy severe vomitting [facility] Medications Current Medications Medication Drug Class(es) Dates Sig (Normalized) Sig (Original) acetaminophen 325 mg / HYDROcodone bitartrate 5 mg oral tablet (3 sources) Opioid Agonist Start: 1 [place] 325 mg-5 mg oral tablet 1 tab(s), Oral, q6hr for pain, 10 tab(s), Refill(s) 0, Pain, [id number], 170, cm, 05/29/20 10:19:00 EDT, Height/Length Dosing, 98.5, kg, 05/29/20 10:19:00 EDT, Weight Dosing Start Date: 05/29/20 Status: Ordered aspirin 81 mg chewable tablet (3 sources) Platelet Aggregation Inhibitor, Nonsteroidal Anti-inflammatory Drug Start: 1 aspirin 81 mg Chew Tab mg tab(s), Chewed, Daily, Refills(s) 0 Start Date: 05/29/20 Status: Ordered buPROPion (3 sources) Aminoketone Start: 1 Wellbutrin SR Oral, BID, Refills(s) 0 Start Date: 05/29/20 Status: Ordered Coreg (3 sources) alpha-Adrenergic Ken, beta-Adrenergic Ken Start: 1 Coreg Oral, BID, Refills(s) 0 Start Date: 05/29/20 Status: Ordered cyclobenzaprine hydrochloride 10 mg oral tablet (3 sources) Muscle Relaxant Start: 4 End: 4 take 1 tablet by mouth three times daily as needed for muscle spasms cyclobenzaprine 10 mg Tab 10 mg = 1 tab(s), Oral, TID, PRN for spasm, X 10 day(s), # 30 tab(s), Refills(s) 0, Pharmacy: [facility], 167, cm, 09/13/23 11:24:00 EDT, Height/Length Dosing, 96, kg, 09/13/23 11:24:00 EDT, Weight Dosing Start Date: 09/13/23 Stop Date: 09/23/23 Status: Ordered famotidine 20 mg oral tablet (3 sources) Histamine-2 Receptor Antagonist Start: 6 take 1 tablet by mouth twice daily famotidine 20 mg oral tablet 20 mg = 1 tab(s), Oral, BID, Refills(s) 0 Start Date: 09/13/15 Status: Ordered hydroCHLOROthiazide 25 mg / triamterene 37.5 mg oral tablet (3 sources) Potassium-sparing Diuretic, Thiazide Diuretic Start: 4 lisinopril 10 mg oral tablet (3 sources) Angiotensin Converting Enzyme Inhibitor Start: 6 take 1 tablet by mouth once daily lisinopril 10 mg oral tablet 10 mg = 1 tab(s), Oral, Daily, Refills(s) 0 Start Date: 09/13/15 Status: Ordered methocarbamol 500 mg oral tablet (3 sources) Muscle Relaxant Start: 6 take 1 tablet by mouth three times daily methocarbamol 500 mg Tab 500 mg = 1 tab(s), Oral, TID, Refills(s) 0 Start Date: 09/17/15 Status: Ordered ondansetron 4 mg oral tablet (3 sources) Serotonin-3 Receptor Antagonist Start: 1 take 1 tablet by mouth three times daily Zofran ODT 4 mg Tab 4 mg = 1 tab(s), Oral, TID, # 10 tab(s), Refills(s) 0, Pharmacy: [id number], 167, cm, 05/24/20 5:39:00 EDT, Height/Length Dosing, 93, kg, 05/24/20 5:39:00 EDT, Weight Dosing Start Date: 05/24/20 Status: Ordered tamsulosin hydrochloride 0.4 mg oral capsule (3 sources) alpha-Adrenergic Ken Start: 1 take 1 capsule by mouth once daily Flomax 0.4 mg Cap 0.4 mg = 1 cap(s), Oral, Daily, Take one capsule by mouth daily for four days, # 4 cap(s), Refills(s) 0, Pharmacy: [id number], 167, cm, 05/24/20 5:39:00 EDT, Height/Length Dosing, 93, kg, 05/24/20 5:39:00 EDT, Weight Dosing Start Date: 05/24/20 Status: Ordered topiramate 25 mg oral tablet (6 sources) Start: 6 take 1 tablet by mouth twice daily Topamax 25 mg Tab 25 mg = 1 tab(s), Oral, BID, # 60 tab(s), Refills(s) 0, Pharmacy: [id number] Start Date: 09/17/15 Status: Ordered traMADol hydrochloride 50 mg oral tablet (3 sources) Opioid Agonist Start: 6 take 1-2 tablets by mouth every eight hours traMADOL 50 mg Tab 1-2 tab(s), Oral, q8hr, Refills(s) 0 Start Date: 09/13/15 Status: Ordered traZODone hydrochloride 100 mg oral tablet (3 sources) Serotonin Reuptake Inhibitor Start: 6 take 2 tablets by mouth once daily at bedtime traZODONE 100 mg Tab 200 mg = 2 tab(s), Oral, Once a day (at bedtime), Refills(s) 0 Start Date: 09/13/15 Status: Ordered Completed/Discontinued Medications Medication Drug Class(es) Dates Sig (Normalized) Sig (Original) levothyroxine (3 sources) l-Thyroxine Start: 09-13-2015 take 1 tablet by mouth once daily levothyroxine 100 mcg (0.1 mg) oral tablet 100 microgram = 1 tab(s), Oral, Daily, Refills(s) 0 Start Date: 09/13/15 Status: Ordered naproxen 500 mg oral tablet (3 sources) Nonsteroidal Anti-inflammatory Drug Start: 05-24-2020 take 1 tablet by mouth twice daily naproxen 500 mg Tab 500 mg = 1 tab(s), Oral, BID, Take one tab by mouth two times a day, # 14 tab(s), Refills(s) 0, Pharmacy: [id number], 167, cm, 05/24/20 5:39:00 EDT, Height/Length Dosing, 93, kg, 05/24/20 5:39:00 EDT, Weight Dosing Start Date: 05/24/20 Status: Ordered Vitamin D3 5000 intl units oral capsule (3 sources) Start: 05-29-2020 take 1 capsule by mouth once daily at mealtime Vitamin D3 5000 intl units oral capsule 5,000 International_Unit = 1 cap(s), Oral, Daily, with food, # 100 cap(s), Refills(s) 0 Start Date: 05/29/20 Status: Ordered Problems Problem Classification Problem Date Documented Date Episodic/Chronic Abdominal pain (4 sources) Unspecified abdominal pain; Translations: [Flank pain] Onset: 06-06-2020 05-29-2020 Episodic Calculus of urinary tract (7 sources) Calculus of kidney; Translations: [Kidney stone] Onset: 06-06-2020 Episodic Esophageal disorders (4 sources) Gastro-esophageal reflux disease without esophagitis; Translations: [Gastroesophageal reflux disease] Onset: 06-13-2020 09-17-2015 Chronic Essential hypertension (4 sources) Essential (primary) hypertension; Translations: [Hypertensive disorder] Onset: 06-13-2020 09-13-2015 Chronic Genitourinary symptoms and ill-defined conditions (4 sources) Stress incontinence (female) (male); Translations: [Genuine stress incontinence] Onset: 06-06-2020 05-29-2020 Chronic Mood disorders (4 sources) Major depressive disorder, single episode, unspecified; Translations: [Depressive disorder] Onset: 06-13-2020 05-29-2020 Chronic Osteoarthritis (7 sources) Unspecified osteoarthritis, unspecified site; Translations: [Arthritis] Onset: 06-13-2020 05-29-2020 Chronic Other aftercare (1 source) Other rodent exterminator (current) drug therapy; Translations: [OTH COMPUTER BUILDER CURRENT DRUG THERAPY] Onset: 06-13-2020 Episodic Other aftercare (1 source) assisted (current) use of aspirin; Translations: [PRISON CURRENT USE OF ASPIRIN] Onset: 06-06-2020 Episodic Other diseases of kidney and ureters (4 sources) Hydronephrosis with renal and ureteral calculous obstruction; Translations: [HYDRONPHROS RENL AND URETRL CALCUL OBST] Onset: 05-30-2020 Episodic Other diseases of kidney and ureters (3 sources) Hydronephrosis due to ureteral obstruction 05-29-2020 Episodic Other non-traumatic joint disorders (1 source) Pain of left hip joint; Translations: [Pain in left hip] Onset: 09-13-2023 Episodic Other nutritional; endocrine; and metabolic disorders (1 source) Obesity, unspecified; Translations: [OBESITY UNSPECIFIED] Onset: 06-13-2020 Chronic Other nutritional; endocrine; and metabolic disorders (1 source) Body mass index (BMI) 34.0-34.9, adult; Translations: [BODY MASS INDEX BMI 34.0-34.9 ADULT] Onset: 06-13-2020 Chronic Other nutritional; endocrine; and metabolic disorders (1 source) Obesity; Translations: [Obesity, unspecified] Onset: 09-13-2023 Chronic Other nutritional; endocrine; and metabolic disorders (1 source) Obese class I; Translations: [Body mass index (BMI) 33.0-33.9, adult] Onset: 09-13-2023 Chronic Spondylosis; intervertebral disc disorders; other back problems (2 sources) Lumbago with sciatica; Translations: [Lumbago with sciatica, unspecified side] Onset: 09-13-2023 Episodic Thyroid disorders (4 sources) Hypothyroidism, unspecified; Translations: [Hypothyroidism] Onset: 06-13-2020 09-13-2015 Chronic Results Test Name Value Interpretation Reference Range Facility CHEMISTRYOrdered By: SYSTEM SYSTEM on 09-20-2023 Albumin [Mass/Vol] 4.1 g/dL Normal 3.3 - 5.0 gm/dL [facility] Albumin/Globulin [Mass ratio] 1.5 {ratio} Normal 1.1 - 2.2 [facility] ALP [Catalytic activity/Vol] 76 [iU]/d Normal 21 - 98 Int._Unit/L [facility] ALT No additional P-5'-P [Catalytic activity/Vol] 22 [iU]/d Normal 6 - 46 Int._Unit/L [facility] Anion gap [Moles/Vol] 11 mmol/L Normal 6 - 16 mEq/L R [facility] AST [Catalytic activity/Vol] 19 [iU]/d Normal 5 - 43 Int._Unit/L [facility] Bilirubin [Mass/Vol] 0.4 mg/dL Normal 0.0 - 1 .1 mg/dL [facility] Calcium [Mass/Vol] 9.4 mg/dL Normal 8.9 - 11. 1 mg/dL [facility] Chloride [Moles/Vol] 104 mmol/L Normal 101 - 1 11 mmol/L [facility] Cholesterol [Mass/Vol] 184 mg/dL Normal 120 - 200 mg/dL [facility] Cholesterol in HDL [Mass/Vol] 71 mg/dL Invalid Interpretation Code [facility] Comment on above: Result Comment: '>= 60 LOW RISK' '<= 40 HIGH RISK' Cholesterol in LDL [Mass/Vol] 92 mg/dL Normal <=129mg/dL [facility] Cholesterol in VLDL [Mass/Vol] 31 mg/dL Normal 7 - 40 mg/dL [facility] CO2 [Moles/Vol] 27 mmol/L Normal 21 - 31 mmol/L [facility] Creatinine [Mass/Vol] 1.0 mg/dL Normal 0.5 - 1.3 mg/dL [facility] eGFR 62 mL/min/1.73 m2 Normal >=59mL/min /1. 73 m2 [facility] Globulin (S) [Mass/Vol] 2.7 g/dL Normal 1.4 - 4.0 gm/dL [facility] Glucose [Mass/Vol] 88 mg/dL Normal 55 - 199 mg/dL [facility] Potassium [Moles/Vol] 4.1 mmol/L Normal 3.5 - 5.3 mmol/L [facility] Protein [Mass/Vol] 6.8 g/dL Normal 6.0 - 7.8 gm/dL [facility] Sodium [Moles/Vol] 138 mmol/L Normal 135 - 145 mmol/L [facility] Triglyceride [Mass/Vol] 153 mg/dL High <=149mg/dL [facility] TSH Qn 1.88 m[IU]/L Normal 0.34 - 5.60 mcIU/mL [facility] Urea nitrogen [Mass/Vol] 25 mg/dL High 5 - 21 mg/dL [facility] Urea nitrogen/Creatinine [Mass ratio] 25 mg/mg High 10 - 20 [facility] HEMATOLOGYOrdered By: SYSTEM SYSTEM on 09-20-2023 Basophils/100 WBC (Bld) 0.8 % Normal 0.0 - 2.0 % [facility] Basophils/Leukocytes Auto (Bld) [Pure # fraction] 0.1 E9/L Normal 0.0 - 0.2 E9/L [facility] Eosinophils (Bld) [#/Vol] 0.2 E9/L Normal 0.0 - 0.5 E9/L [facility] Eosinophils/100 WBC (Bld) 1.9 % Normal 0.0 - 8.0 % [facility] Erythrocyte distribution width (RBC) [Ratio] 14.2 % Normal 10.9 - 14.2 % [facility] Hematocrit (Bld) [Volume fraction] 36.2 % Normal 34.0 - 46.0 % [facility] Hemoglobin (Bld) [Mass/Vol] 12.5 g/dL Normal 12.0 - 16.0 gm/dL [facility] Lymphocytes (Bld) [#/Vol] 3.0 E9/L Normal 1.0 - 4.0 E9/L [facility] Lymphocytes/100 WBC (Bld) 38.3 % Normal 14.0 - 50.0 % [facility] MCH (RBC) [Entitic mass] 32.9 pg Normal 27.0 - 34.0 pg [facility] MCHC (RBC) [Mass/Vol] 34.6 g/dL Normal 31.4 - 36.0 gm/dL [facility] MCV (RBC) [Entitic vol] 95.2 fL Normal 80.0 - 100.0 fL [facility] Monocytes (Bld) [#/Vol] 0.9 E9/L Normal 0.2 - 1.0 E9/L [facility] Monocytes/100 WBC (Bld) 11.7 % Normal 4.0 - 14.0 % [facility] Neutrophils (Bld) [#/Vol] 3.8 E9/L Normal 2.0 - 7.5 E9/L [facility] Neutrophils/100 WBC (Bld) 47.3 % Normal 36.0 - 75.0 % [facility] Platelet 259.0 E9/L Normal 150.0 - 500.0 E9/L [facility] Platelet mean volume (Bld) [Entitic vol] 8.4 fL Normal 6.4 - 10.8 fL [facility] RBC (Bld) [#/Vol] 3.8 E12/L Low 4.3 - 5.9 E12/L [facility] WBC corrected for nucl RBC Auto (Bld) [#/Vol] 7.9 E9/L Normal 4.0 - 11.0 E9/L [facility] Ambulatory Visit Summaryon 0 09-13-2023 Ambulatory Visit Summary Ambulatory Visit Summary NEO ZHENG :1960 Visit Date:09/13/2023 Ambulatory Visit Instructions Your Diagnosis Sciatic pain Left hip pain BMI 33.0-33.9,adult Your Care Team Attending Physician - Deb GALVAN, Leana Primary Care Physician - Katia PELAYO, Layla Narayan This Is Your Medications List acetaminophen-hydroc odone ([place] 325 mg-5 mg oral tablet) aspirin (aspirin 81 mg Chew Tab) buPROPion (Wellbutrin SR) carvedilol (Coreg) cholecalciferol (Vitamin D3 5000 intl units oral capsule) cyclobenzaprine (cyclobenzaprine 10 mg Tab) famotidine (famotidine 20 mg oral tablet) hydrochlorothiazide- triamterene (hydrochlorothiazide -triamterene 25 mg-37.5 mg Tab) levothyroxine (levothyroxine 100 mcg (0.1 mg) oral tablet) lisinopril (lisinopril 10 mg oral tablet) methocarbamol (methocarbamol 500 mg Tab) naproxen (naproxen 500 mg Tab) ondansetron (Zofran ODT 4 mg Tab) tamsulosin (Flomax 0.4 mg Cap) topiramate (Topamax 25 mg Tab) topiramate (Topamax) tramadol (traMADOL 50 mg Tab) trazodone (traZODONE 100 mg Tab) Procedures Performed Major left facial reconstruction (11/08/2004), Colonoscopy, oopherectomy, Tonsillectomy and adenoidectomy, Vertical banded gastroplasty. Discharge Vitals Temperature (Tympanic) 36.6 ?C Heart Rate (Peripheral) 65 Blood Pressure 135/85 Height 167 cm Height 66 in Weight 96 kg Weight 211.2 lb BMI 34.42 Medications What How Much When Why Instructions New cyclobenzaprine (cyclobenzaprine 10 mg Tab) 1 Tablets By Mouth 3 times a day as needed for for spasm Sciatic pain Duration: 10 Days Pickup at [facility] Unchanged acetaminophen-hydroc odone ([place] 325 mg-5 mg oral tablet) 1 Tablets By Mouth Every 6 hours as needed for for pain Unchanged aspirin (aspirin 81 mg Chew Tab) Chewed Every day Unchanged buPROPion (Wellbutrin SR) By Mouth 2 times a day Unchanged carvedilol (Coreg) By Mouth 2 times a day Unchanged cholecalciferol (Vitamin D3 5000 intl units oral capsule) 1 Capsules By Mouth Every day with food Unchanged famotidine (famotidine 20 mg oral tablet) 1 Tablets By Mouth 2 times a day Unchanged hydrochlorothiazide- triamterene (hydrochlorothiazide -triamterene 25 mg-37.5 mg Tab) 90 Unspecified/ Unknown, 0 Refill(s), TAKE 1 TABLET BY MOUTH ONCE DAILY IN THE MORNING Unchanged levothyroxine (levothyroxine 100 mcg (0.1 mg) oral tablet) 1 Tablets By Mouth Every day Unchanged lisinopril (lisinopril 10 mg oral tablet) 1 Tablets By Mouth Every day Unchanged methocarbamol (methocarbamol 500 mg Tab) 1 Tablets By Mouth 3 times a day Unchanged naproxen (naproxen 500 mg Tab) 1 Tablets By Mouth 2 times a day Take one tab by mouth two times a day Unchanged ondansetron (Zofran ODT 4 mg Tab) 1 Tablets By Mouth 3 times a day Unchanged tamsulosin (Flomax 0.4 mg Cap) 1 Capsules By Mouth Every day Take one capsule by mouth daily for four days Unchanged topiramate (Topamax 25 mg Tab) 1 Tablets By Mouth 2 times a day Unchanged topiramate (Topamax) 25 Milligram By Mouth [address] Johnston prescribes Unchanged tramadol (traMADOL 50 mg Tab) 1-2 tab(s) By Mouth Every 8 hours Unchanged trazodone (traZODONE 100 mg Tab) 2 Tablets By Mouth Once a day (at bedtime) Pharmacy Information [facility] 1986: [address] [place], [place] [id number] [phone] Allergies morphine (severe vomitting) Problems Ongoing - Any problem that you are currently receiving treatment for. Acid reflux Arthritis Depression Flank pain HTN (hypertension) Hypothyroid Kidney stone OA (osteoarthritis) Stress incontinence Ureteral stone with hydronephrosis Patient Survey You may receive a survey via text or e-mail asking about your office visit. Please share your experience with us by completing your survey. We appreciate your feedback and thank you for choosing us for your care. Patricio Cuellar [facility] Family Medicine Office/Clini c Noteon 09-13-2023 Family Medicine Office/Clinic Note Family Medicine Office/Clinic Note Chief Complaint hip pain HPI Staff 63 year old female presents with lt hip pain that started 5 days ago, no known injury. Pain radiates for hip to knee, difficulty ambulating History of Present Illness I have reviewed and verified the staff HPI to be accurate for this encounter. Portions of this record have been created with voice recognition software. Occasional wrong-word or ?ylrsw-p-eofl? substitutions may have occurred due to the inherent limitations of voice recognition software. 63-year-old female with complaints of left hip pain for the last 5 days. Patient states pain radiates radiates from her hip to her knee she has difficulty ambulating. She does report a fall couple weeks ago when she was carrying a 20 pound bag of bird feed and fell forward onto her wrists. At that time she mainly had a sprain what she thought was a sprain anyway to her bilateral wrist. She did not have any left hip pain at that time. She reports tenderness at the the area of the [id number]-[id number] joint and has pain with external rotation of the left hip. States sometimes her back also hurts. She has been using udso-[id number]-[id number] medications without much relief. Review of Systems PHQ Score Initial Depression Screen Score: 0 SCORE ROS negative unless otherwise stated in HPI. Physical Exam Vitals & Measurements T: 36.6 ?C(Tympanic) HR: 65(Peripheral) BP: 135/85 SpO2: 97% HT: 66 in HT: 167 cm WT: 96 kg WT: 211.2 lb BMI: 34.42 General: Middle-age female average build sitting out on angle in chair Eyes: not assessed Ears: not assessed Nose: not addressed Mouth: not assessed Neck: not assessed Lungs: Normal respiratory effort and clear to auscultation Cardio: regular rate and rhythm, no murmur Abdomen: not assessed Musculoskeletal: not assessed Extremity: not assessed Neurologic: Grossly normal Skin: No rashes, ulcerations, or suspicious lesions Mental Status: Alert and oriented x3. Normal mood and affect Assessment/Plan Based on history and presentation of this patient's left pain I am not sure if she has maybe a worsening of her arthritis versus possible bursitis or even possible possible degeneration of her spine causing the symptoms. We will get a left hip x-ray due to considerable tenderness over the hip joint area. Left hip x-ray was negative for any fractures or dislocations. It appears that her symptoms are more likely caused from lumbago than actual hip pain. 1. Lumbago with sciatica (M54.40: Lumbago with sciatica, unspecified side) Patient instructed to take one OTC Aleve every 12 hours. She should also use Tylenol up to 3000 mg in 24 hour period to help relieve symptoms. She was encouraged not to sit in recliner chair as this may exacerbate her symptoms. She was encouraged to keep walking daily. Explained that these type of symptoms may take several days to weeks to improve. Follow up with your PCP if no improvement in symptoms in 5-7 days. Patient verbalized understanding and in agreement with this plan. 2. Left hip pain (M25.552: Pain in left hip) As above Ordered: XR Hip 2-3 Views Left 3. BMI 33.0-33.9,adult (Z68.33: Body mass index [BMI] 33.0-33.9, adult) The standard range for ages 18 and older is >=18.5 and < 25 kg/m2. Your BMI today was above this range, this falls in the overweight to obese category and there are medical benefits to weight loss. We can offer counselling, referral, and/or medical support in addressing this problem. Your BMI and weight management will be followed at subsequent visits. 4. Obesity (E66.9: Obesity, unspecified) Encouraged healthy diet and exercise. Sciatic pain (M54.30: Sciatica, unspecified side) Ordered: cyclobenzaprine, 10 mg = 1 tab(s), Oral, TID, PRN for spasm, X 10 day(s), # 30 tab(s), Refills(s) 0, Pharmacy: [facility], 167, cm, 09/13/23 11:24:00 EDT, Height/Length Dosing, 96, kg, 09/13/23 11:24:00 EDT, Weight Dosing Follow-up With When Contact Information Katia PELAYO, Layla Narayan [address] [place] [address]- Additional Instructions: Patient Education Obesity, Adult BMI for Adults Sciatica, [id number] Problem List/Past Medical History Ongoing Acid reflux Arthritis Depression Flank pain HTN (hypertension) Hypothyroid Kidney stone OA (osteoarthritis) Stress incontinence Ureteral stone with hydronephrosis Historical No qualifying data Procedure/Surgical History Major left facial reconstruction (11/08/2004), Colonoscopy, oopherectomy, Tonsillectomy and adenoidectomy, Vertical banded gastroplasty. Medications aspirin 81 mg Chew Tab, Chewed, Daily Coreg, Oral, BID cyclobenzaprine 10 mg Tab, 10 mg= 1 tab(s), Oral, TID, PRN famotidine 20 mg oral tablet, 20 mg= 1 tab(s), Oral, BID Flomax 0.4 mg Cap, 0.4 mg= 1 cap(s), Oral, Daily hydrochlorothiazide- triamterene 25 mg-37.5 mg Tab levothyroxine 100 mcg (0.1 mg) oral tablet, 100 mcg= 1 tab(s), Oral, Daily lisinopril 10 (more content not included)... Normal [facility] Comment on above: Result Comment: Elec tronically Signed By: Deb GALVAN, Leana\.br\Date and Time Signed: 09/13/23 19:26 EDT XR Hip 2-3 Views Lefton XR Hip 2-3 Views Left Exam Date/Time: 09/13/2023 11:53 EDT Reason for Exam: pain without trauma;Hip pain Report IMPRESSION: No acute osseous findings. EXAMINATION/TECHNIQU E: XR Hip 2-3 Views Left HISTORY: Left hip pain. No recent injury. Difficulty walking. COMPARISON: 03/10/2018. RESULT: Limitations from patient body habitus. No evidence for acute fracture involving the left hip or visualized bony pelvis. Mild to moderate degenerative changes of the left hip joint, similar to prior. Enthesophytes at the greater trochanter, left iliac crest, and left ischial tuberosity, unchanged. Soft tissues unremarkable. No other significant abnormality. Ordering Provider: Yolis Boyd FINAL REPORT Dictated: 09/13/2023 12:37 pm Stephon Yang MD Signed (Electronic Signature): 09/13/2023 12:37 pm Signed by: Stephon Yang MD Transcribed by: ANAHI Technologist: SRF Technical Comments Radiation Dose: Ka,r in mGy = na DAP = na Normal [facility] CALCULI, URINARYon 1 2,8 Dihydroxyadenine Normal [facility] Comment on above: Performed By: #### C ALCULI #### [facility] [address] [place] [address] Cristi Bina Ammonium Acid Urate Normal [facility] Comment on above: Performed By: #### C ALCULI #### [facility] [address] [id number] Cristi Bina Bilirubin Ql (U) Normal [facility] Comment on above: Performed By: #### C ALCULI #### [facility] [address] [address] Cristi Bina Ca Oxalate Dihydrate 20 % Normal [facility] Comment on above: Performed By: #### C ALCULI #### [facility] [address] [address] Cristi Bina CaHPO4 (Brushite) Normal [facility] Comment on above: Performed By: #### C ALCULI #### [facility] [address] [address] Cristi Bina Calcium Bilirubinate Normal [facility] Comment on above: Performed By: #### C ALCULI #### [facility] [address] [address] Cristi Bina Calcium Carbonate Normal [facility] Comment on above: Performed By: #### C ALCULI #### [facility] [address] [address] Cristi Bina Calcium Oxalate Monohydrate 80 % Normal [facility] Comment on above: Performed By: #### C ALCULI #### [facility] [address] [place] [address] Cristi Bina Calcium Palmitate Normal [facility] [facility] Comment on above: Performed By: #### C ALCULI #### [facility] [address] [address] Cristi Bina Calcium Phosphate Normal [facility] Comment on above: Performed By: #### C ALCULI #### [facility] [address] [place] [address] Cristi Bina Calcium Stearate Normal [facility] Comment on above: Performed By: #### C ALCULI #### [facility] [address] [place] [address] Cristi Bina Carbonate Apatite Normal [facility] Comment on above: Performed By: #### C ALCULI #### [facility] [address] [address] Cristi Bina Cellular Material Normal [facility] Comment on above: Performed By: #### C ALCULI #### [facility] [address] [place] [address] Cristi Bina Cholesterol Normal [facility] Comment on above: Performed By: #### C ALCULI #### [facility] [address] [address] Cristi Bina Color (U) Brown Normal [facility] Comment on above: Performed By: #### C ALCULI #### [facility] [address] [address] Cristi Bina Comment Normal [facility] Comment on above: Performed By: #### C ALCULI #### [facility] [address] [address] Cristi Bina Comment: Comment Normal [facility] Comment on above: Result Comment: Phys gladys questions regarding Calculi Analysis contact [facility] at: [phone]. Performed By: #### C ALCULI #### [facility] [address] [place] [address] Cristi Bina Composition Comment Normal [facility] Comment on above: Result Comment: Perc entage (Represents the % composition) Performed By: #### C ALCULI #### [facility] [address] [place] [address] Cristi Bina Cystine Normal [facility] Comment on above: Performed By: #### C ALCULI #### [facility] [address] [place] [address] Cristi Bina Disclaimer: Comment Normal [facility] Comment on above: Result Comment: This test was developed and its performance characteristics determined by [facility]. It has not been cleared or approved by the Food and Drug Administration. Performed By: #### C ALCULI #### [facility] [address] [place] [address] Cristi Bina Dried Blood Normal [facility] Comment on above: Performed By: #### C ALCULI #### [facility] [address] [place] [address] Cristi Bina Drug or Metabolite Normal [facility] Comment on above: Performed By: #### C ALCULI #### [facility] [address] [place] [address] Cristi Bina Hydroxyapatite Normal [facility] Comment on above: Performed By: #### C ALCULI #### [facility] [address] [place] [address] Cristi Bina Mg NH4 PO4 (Struvite) Normal [facility] Comment on above: Performed By: #### C ALCULI #### [facility] [address] [address] Cristi Bina MgHPO4 (Newberyite) Normal [facility] Comment on above: Performed By: #### C ALCULI #### [facility] [address] [address] Cristi Bina Other component(s) Normal [facility] Comment on above: Performed By: #### C ALCULI #### [facility] [address] [address] Cristi Bina PDF . Normal [facility] Comment on above: Performed By: #### C ALCULI #### [facility] [address] [address] Cristi Bina Photo Comment [facility] Comment on above: Result Comment: Phot ograph will follow under a separate cover Performed By: #### C ALCULI #### [facility] [address] [address] Cristi Bina Please note: Comment Normal [facility] Comment on above: Result Comment: Calc josé manuel report will follow via computer, mail or final dressing cutter delivery. Performed By: #### C ALCULI #### [facility] [address] [address] Cristi Bina Size 4x6 [facility] Comment on above: Result Comment: Mult iple pieces received. Dimensions of the largest piece reported. Performed By: #### C ALCULI #### [facility] [address] [address] Cristi Bina Sodium Acid Urate Normal [facility] Comment on above: Performed By: #### C ALCULI #### [facility] [address] [address] Cristi Bina Source Comment Normal [facility] Comment on above: Result Comment: Marianna Hodges Performed By: #### C ALCULI #### [facility] [address] [address] Cristi Bina [facility] Comment on above: Performed By: #### C ALCULI #### [facility] [address] [address] Cristi Bina Uric Acid Normal [facility] Comment on above: Performed By: #### C ALCULI #### [facility] [address] [place], [place] [address] Cristi Bina Uric Acid Dihydrate Normal [facility] Comment on above: Performed By: #### C ALCULI #### [facility] [address] [place], [place] [address] Cristi Bina Weight 122 mg Normal [facility] Comment on above: Performed By: #### C ALCULI #### [facility] [address] [place], [place] [address] Cristi Bina Xanthine Normal [facility] Comment on above: Performed By: #### C ALCULI #### [facility] [address] [address] Cristi Bina XR KUB 1 VIEWon 06-06-2020 [...] by: MANN DIAZ Date: 2020-06-06 07:31 Normal [facility] XR FLUORO < 1 HRon XR FLUORO [...] by: NOY DONOVAN Date: 2020-05-30 15:24 Normal [facility] Vital Signs Date Time Vital Sign Value Performing Clinician Facility 09-13-2023 11:21-0400 Blood Pressure Location Yolis Charlesciarazaina [facility] 09-13-2023 11:21-0400 Body temperature 97.88 [degF] Yolis Danielzaina [facility] 09-13-2023 11:21-0400 Diastolic blood pressure 85 mm[Hg] Yolis Deb [facility] 09-13-2023 11:21-0400 Heart rate 65 /min Yolis Deb [facility] 09-13-2023 11:21-0400 SaO2% (BldA) [Mass fraction] 97 % Yolis Deb [facility] 09-13-2023 11:21-0400 Systolic blood pressure 135 mm[Hg] Yolis Deb [facility] Encounters Encounter Date Encounter Type Care Provider Facility Start: 09-20-2023 End: 09-20-2023 Patient encounter procedure Layla Bhardwajgles [facility] Start: 09-16-2023 End: 09-16-2023 ambulatory LAYLA BHARDWAJGLES Not Available Start: 09-13-2023 End: 09-13-2023 ambulatory Yolis Boyd [place] Start: 09-13-2023 End: 09-13-2023 Patient encounter procedure Yolis Boyd [facility] Start: 07-27-2023 End: 07-27-2023 ambulatory SELF REFERRAL [place] Start: 05-24-2023 End: 05-24-2023 ambulatory GRIS MOURA Not Available Start: 06-06-2020 End: 06-06-[address] JESUS PORTILLO Facility:[facility] Start: 05-30-2020 End: 05-30-[address] JESUS PORTILLO Facility:[facility] Start: 05-29-[address] JESUS PORTILLO Facil ity:[facility] Procedures Date Procedure Procedure Detail Performing Clinician Start: 11-08-2004 Major left facial reconstruction Yolis Sanchezer Colonoscopy Yolis Araceliciarae r oopherectomy 1 Yolisanju Charlesd ner Comment on above: right 1999 [employer] operation, high gastric bypass Yolis Boyd Comment on above: 2001 Tonsillectomy and adenoidectomy Yolis Boyd Immunizations Immunization Date Immunization Notes Care Provider Fa cility NEGATED: Highlighted row has not occurred!05-29-2020 influenza virus vaccine, unspecified formulation Yolis Boyd [facility] Payers Date Payer Category Payer Private Health Insurance [id number] 2023 Medicaid [id number] 2022 Unknown [id number] 1961 Unknown [id number] 1961 Unknown 1958 Unknown [id number] 2.16.84 [id number] 1958 Unknown [id number] 2.16.84 [id number] 1958 Unknown [id number] 2.16.84 [id number] 1958 Unknown [id number] 2.16.8 [id number] 1958 Unknown [id number] 2.16.8 [id number] 1958 Unknown [id number] 2.16.8 [id number] 1958 Unknown [id number] 2.16.84 [id number] 1958 Unknown [id number] 2.16.84 [id number] Social History Date Type Detail Facility Start: 09-13-2023 Tobacco smoking status Never s moked tobacco (finding) [facility] Tobacco smoking status Never Fishe [facility] Sex Assigned At Female [facility] Functional Status Date Assessment Result Facility 09-13-2023 Functional Status N/A [facility] Discharge instructions 09-13-2023 Note Date & Type Note Facility 09-13-2023 Hospital Discharge instructions Patient Education 09/13/2023 19:24:04 Obesity, Adult Obesity, Adult Obesity is the condition of having too much total body fat. Being overweight or obese means that your weight is greater than what is considered healthy for your body size. Obesity is determined by a measurement called BMI (body mass index). BMI is an estimate of body fat and is calculated from height and weight. For adults, a BMI of 30 or higher is considered obese. Obesity can lead to other health concerns and major illnesses, including: Stroke. Coronary artery disease (CAD). Type 2 diabetes. Some types of cancer, including cancers of the colon, breast, uterus, and gallbladder. High blood pressure (hypertension). High cholesterol. Gallbladder stones. Obesity can also contribute to: Osteoarthritis. Sleep apnea. Infertility problems. What are the causes? Common causes of this condition include: Eating daily meals that are high in calories, sugar, and fat. Drinking high amounts of sugar-sweetened beverages, such as soft drinks. Being born with genes that may make you more likely to become obese. Having a medical condition that causes obesity, including: ?Hypothyroidism. ?Polycystic ovarian syndrome (PCOS). ?Binge-eating disorder. ?Heydi syndrome. Taking certain medicines, such as steroids, antidepressants, and seizure medicines. Not being physically active (sedentary lifestyle). Not getting enough sleep. What increases the risk? The following factors may make you more likely to develop this condition: Having a family history of obesity. Living in an area with limited access to: ?[place], recreation centers, or sidewalks. ?Healthy food choices, such as grocery stores and farmers[employer]ioMind markets. What are the signs or symptoms? The main sign of this condition is having too much body fat. How is this diagnosed? This condition is diagnosed based on: Your BMI. If you are an adult with a BMI of 30 or higher, you are considered obese. Your waist circumference. This measures the distance around your waistline. Your skinfold thickness. Your health care provider may gently pinch a fold of your skin and measure it. You may have other tests to check for underlying conditions. How is this treated? Treatment for this condition often includes changing your lifestyle. Treatment may include some or all of the following: Dietary changes. This may include developing a healthy meal plan. Regular physical activity. This may include activity that causes your heart to beat faster (aerobic exercise) and strength training. Work with your health care provider to design an exercise program that works for you. Medicine to help you lose weight if you are unable to lose one pound a week after six weeks of healthy eating and more physical activity. Treating conditions that cause the obesity (underlying conditions). Surgery. Surgical options may include gastric banding and gastric bypass. Surgery may be done if: ?Other treatments have not helped to improve your condition. ?You have a BMI of 40 or higher. ?You have life-threatening health problems related to obesity. Follow these instructions at home: Eating and drinking Follow recommendations from your health care provider about what you eat and drink. Your health care provider may advise you to: ?Limit fast food, sweets, and processed snack foods. ?Choose low-fat options, such as low-fat milk instead of whole milk. ?Eat five or more servings of fruits or vegetables every day. ?Choose healthy foods when you eat out. ?Keep low-fat snacks available. ?Limit sugary drinks, such as soda, fruit juice, sweetened iced tea, and flavored milk. Drink enough water to keep your urine pale yellow. Do not follow a fad diet. Fad diets can be unhealthy and even dangerous. Other healthful choices include: ?Eat at home more often. This gives you more control over what you eat. ?Learn to read food labels. This will help you understand how much food is considered one serving. ?Learn what a healthy serving size is. Physical activity Exercise regularly, as told by your health care provider. ?Most adults should get up to 150 minutes of moderate-intensity exercise every week. ?Ask your health care provider what types of exercise are safe for you and how often you should exercise. Warm up and stretch before being active. Cool down and stretch after being active. Rest between periods of activity. Lifestyle Work with your health care provider and a dietitian to set a weight-loss goal that is healthy and reasonable for you. Limit your screen time. Find ways to reward yourself that do not involve food. Do not drink alcohol if: ?Your health care provider tells you not to drink. ?You are , may be , or are planning to become . If you drink alcohol: ?Limit how much you have to: ?0 1 drink a day for women. ?0 2 drinks a day for men. ?Know how much alcohol is in your drink. In the [place] one drink equals one 12 oz bottle of beer (355 mL), one 5 oz glass of wine (148 mL), or one 1 oz glass of hard liquor (44 mL). General instructions Keep a weight-loss journal to keep track of the food you eat and how much exercise you get. Take nput-nvi-ejyygef and prescription medicines only as told by your health care provider. Take vitamins and supplements only as told by your health care provider. Consider joining a support group. Your health care provider may be able to recommend a support group. Pay attention to your mental health as obesity can lead to depression or self esteem issues. Keep all follow-up visits. This is important. Contact a health care provider if: You are unable to meet your weight-loss goal after six weeks of dietary and lifestyle changes. You have trouble breathing. Summary Obesity is the condition of having too much total body fat. Being overweight or obese means that your weight is greater than what is considered healthy for your body size. Work with your health care provider and a dietitian to set a weight-loss goal that is healthy and reasonable for you. Exercise regularly, as told by your health care provider. Ask your health care provider what types of exercise are safe for you and how often you should exercise. This information is not intended to replace advice given to you by your health care provider. Make sure you discuss any questions you have with your health care provider. Document Revised: 09/02/2021 Document Reviewed: 09/02/2021 [employer] Patient Education 2022 [employer]. 09/13/2023 19:23:59 BMI for Adults BMI for Adults What is BMI? Body mass index (BMI) is a number that is calculated from a person's weight and height. BMI can help estimate how much of a person's weight is composed of fat. BMI does not measure body fat directly. Rather, it is an alternative to procedures that directly measure body fat, which can be difficult and expensive. BMI can help identify people who may be at higher risk for certain medical problems. What are BMI measurements used for? BMI is used as a screening tool to identify possible weight problems. It helps determine whether a person is obese, overweight, a healthy weight, or underweight. BMI is useful for: Identifying a weight problem that may be related to a medical condition or may increase the risk for medical problems. Promoting changes, such as changes in diet and exercise, to help reach a healthy weight. BMI screening can be repeated to see if these changes are working. How is BMI calculated? BMI involves measuring your weight in relation to your height. Both height and weight are measured, and the BMI is calculated from those numbers. This can be done either in Urdu ([place] or metric measurements. Note that charts and online BMI calculators are available to help you find your BMI quickly and easily without having to do these calculations yourself. To calculate your BMI in Urdu ([place] measurements: 1.Measure your weight in pounds (lb). 2.Multiply the number of pounds by 703. For example, for a person who weighs 180 lb, multiply that number by 703, which equals 126,540. 3.Measure your height in inches. Then multiply that number by itself to get a measurement called inches squared. For example, for a person who is 70 inches tall, the inches squared measurement is 70 inches x 70 inches, which equals 4,900 inches squared. 4.Divide the total from step 2 (number of lb x 703) by the total from step 3 (inches squared): 126,540 4,900 = 25.8. This is your BMI. To calculate your BMI in metric measurements: 1.Measure your weight in kilograms (kg). 2.Measure your height in meters (m). Then multiply that number by itself to get a measurement called meters squared. For example, for a person who is 1.75 m tall, the meters squared measurement is 1.75 m x 1.75 m, which is equal to 3.1 meters squared. 3.Divide the number of kilograms (your weight) by the meters squared number. In this example: 70 3.1 = 22.6. This is your BMI. What do the results mean? BMI charts are used to identify whether you are underweight, normal weight, overweight, or obese. The following guidelines will be used: Underweight: BMI less than 18.5. Normal weight: BMI between 18.5 and 24.9. Overweight: BMI between 25 and 29.9. Obese: BMI of 30 or above. Keep these notes in mind: Weight includes both fat and muscle, so someone with a muscular build, such as an athlete, may have a BMI that is higher than 24.9. In cases like these, BMI is not an accurate measure of body fat. To determine if excess body fat is the cause of a BMI of 25 or higher, further assessments may need to be done by a health care provider. BMI is usually interpreted in the same way for men and women. Where to find more information For more information about BMI, including tools to quickly calculate your BMI, go to these websites: Centers for Disease Control and Prevention: www.cdc.gov [employer]: www.heart.org National Heart, Lung, and Blood [place]: www.nhlbi.nih.gov Summary Body mass index (BMI) is a number that is calculated from a person's weight and height. BMI may help estimate how much of a person's weight is composed of fat. BMI can help identify those who may be at higher risk for certain medical problems. BMI can be measured using Urdu measurements or metric measurements. BMI charts are used to identify whether you are underweight, normal weight, overweight, or obese. This information is not intended to replace advice given to you by your health care provider. Make sure you discuss any questions you have with your health care provider. Document Revised: 10/18/2019 Document Reviewed: 08/25/2019 [employer] Patient Education 2022 [employer]. 09/13/2023 19:23:54 Sciatica, Psua-ae-Pndf Sciatica Sciatica is pain, weakness, tingling, or loss of feeling (numbness) along the sciatic nerve. The sciatic nerve starts in the lower back and goes down the back of each leg. Sciatica usually affects one side of the body. Sciatica usually goes away on its own or with treatment. Sometimes, sciatica may come back. What are the causes? This condition happens when the sciatic nerve is pinched or has pressure put on it. This may be caused by: A disk in between the bones of the spine bulging out too far (herniated disk). Changes in the spinal disks due to aging. A condition that affects a muscle in the butt. Extra bone growth near the sciatic nerve. A break (fracture) of the area between your hip bones (pelvis). . Tumor. This is rare. What increases the risk? You are more likely to develop this condition if you: Play sports that put pressure or stress on the spine. Have poor strength and ease of movement (flexibility). Have had a back injury or back surgery. Sit for long periods of time. Do activities that involve bending or lifting over and over again. Are very overweight (obese). What are the signs or symptoms? Symptoms can vary from mild to very bad. They may include: Any of these problems in the lower back, leg, hip, or butt: ?Mild tingling, loss of feeling, or dull aches. ?A burning feeling. ?Sharp pains. Loss of feeling in the back of the calf or the sole of the foot. Leg weakness. Very bad back pain that makes it hard to move. These symptoms may get worse when you cough, sneeze, or laugh. They may also get worse when you sit or stand for long periods of time. How is this treated? This condition often gets better without any treatment. However, treatment may include: Changing or cutting back on physical activity when you have pain. Exercising, including strengthening and stretching. Putting ice or heat on the affected area. Shots of medicines to relieve pain and swelling or to relax your muscles. Surgery. Follow these instructions at home: Medicines Take jgwo-eyy-pwzpuhb and prescription medicines only as told by your doctor. Ask your doctor if you should avoid driving or using machines while you are taking your medicine. Managing pain If told, put ice on the affected area. To do this: ?Put ice in a plastic bag. ?Place a towel between your skin and the bag. ?Leave the ice on for 20 minutes, 2 3 times a day. ?If your skin turns bright red, take off the ice right away to prevent skin damage. The risk of skin damage is higher if you cannot feel pain, heat, or cold. If told, put heat on the affected area. Do this as often as told by your doctor. Use the heat source that your doctor tells you to use, such as a moist heat pack or a heating pad. ?Place a towel between your skin and the heat source. ?Leave the heat on for 20 30 minutes. ?If your skin turns bright red, take off the heat right away to prevent russell. The risk of russell is higher if you cannot feel pain, heat, or cold. Activity Return to your normal activities when your doctor says that it is safe. Avoid activities that make your symptoms worse. Take short rests during the day. ?When you rest for a long time, do some physical activity or stretching between periods of rest. ?Avoid sitting for a long time without moving. Get up and move around at least one time each hour. Do exercises and stretches as told by your doctor. Do not lift anything that is heavier than 10 lb (4.5 kg). ?Avoid lifting heavy things even when you do not have symptoms. ?Avoid lifting heavy things over and over. When you lift objects, always lift in a way that is safe for your body. To do this, you should: ?Bend your knees. ?Keep the object close to your body. ?Avoid twisting. General instructions Stay at a healthy weight. Wear comfortable shoes that support your feet. Avoid wearing high heels. Avoid sleeping on a mattress that is too soft or too hard. You might have less pain if you sleep on a mattress that is firm enough to support your back. Contact a doctor if: Your pain is not controlled by medicine. Your pain does not get better. Your pain gets worse. Your pain lasts longer than 4 weeks. You lose weight without trying. Get help right away if: You cannot control when you pee (urinate) or poop (have a bowel movement). You have weakness in any of these areas and it gets worse: ?Lower back. ?The area between your hip bones. ?Butt. ?Legs. You have redness or swelling of your back. You have a burning feeling when you pee. Summary Sciatica is pain, weakness, tingling, or loss of feeling (numbness) along the sciatic nerve. This may include the lower back, legs, hips, and butt. This condition happens when the sciatic nerve is pinched or has pressure put on it. Treatment often includes rest, exercise, medicines, and putting ice or heat on the affected area. This information is not intended to replace advice given to you by your health care provider. Make sure you discuss any questions you have with your health care provider. Document Revised: 05/04/2022 Document Reviewed: 05/04/2022 [employer] Patient Education 2022 [employer]. Follow Up Care 09/13/2023 10:59:43 With:Katia PELAYO, Layla Narayan Address: [address] [place] [address]- When: Unknown [facility] Clinical Note 09-13-2023 Note Date & Type Note Facility 09-13-2023 Note Patient Education Gastroenterology Obesity, Adult Obesity is the condition of having too much total body fat. Being overweight or obese means that your weight is greater than what is considered healthy for your body size. Obesity is determined by a measurement called BMI (body mass index). BMI is an estimate of body fat and is calculated from height and weight. For adults, a BMI of 30 or higher is considered obese. Obesity can lead to other health concerns and major illnesses, including: ? Stroke. ? Coronary artery disease (CAD). ? Type 2 diabetes. ? Some types of cancer, including cancers of the colon, breast, uterus, and gallbladder. ? High blood pressure (hypertension). ? High cholesterol. ? Gallbladder stones. Obesity can also contribute to: ? Osteoarthritis. ? Sleep apnea. ? Infertility problems. What are the causes? Common causes of this condition include: ? Eating daily meals that are high in calories, sugar, and fat. ? Drinking high amounts of sugar-sweetened beverages, such as soft drinks. ? Being born with genes that may make you more likely to become obese. ? Having a medical condition that causes obesity, including: ? Hypothyroidism. ? Polycystic ovarian syndrome (PCOS). ? Binge-eating disorder. ? Heydi syndrome. ? Taking certain medicines, such as steroids, antidepressants, and seizure medicines. ? Not being physically active (sedentary lifestyle). ? Not getting enough sleep. What increases the risk? The following factors may make you more likely to develop this condition: ? Having a family history of obesity. ? Living in an area with limited access to: ? [place], recreation centers, or sidewalks. ? Healthy food choices, such as grocery stores and [employer]. What are the signs or symptoms? The main sign of this condition is having too much body fat. How is this diagnosed? This condition is diagnosed based on: ? Your BMI. If you are an adult with a BMI of 30 or higher, you are considered obese. ? Your waist circumference. This measures the distance around your waistline. ? Your skinfold thickness. Your health care provider may gently pinch a fold of your skin and measure it. You may have other tests to check for underlying conditions. How is this treated? Treatment for this condition often includes changing your lifestyle. Treatment may include some or all of the following: ? Dietary changes. This may include developing a healthy meal plan. ? Regular physical activity. This may include activity that causes your heart to beat faster (aerobic exercise) and strength training. Work with your health care provider to design an exercise program that works for you. ? Medicine to help you lose weight if you are unable to lose one pound a week after six weeks of healthy eating and more physical activity. ? Treating conditions that cause the obesity (underlying conditions). ? Surgery. Surgical options may include gastric banding and gastric bypass. Surgery may be done if: ? Other treatments have not helped to improve your condition. ? You have a BMI of 40 or higher. ? You have life-threatening health problems related to obesity. Follow these instructions at home: Eating and drinking ? Follow recommendations from your health care provider about what you eat and drink. Your health care provider may advise you to: ? Limit fast food, sweets, and processed snack foods. ? Choose low-fat options, such as low-fat milk instead of whole milk. ? Eat five or more servings of fruits or vegetables every day. ? Choose healthy foods when you eat out. ? Keep low-fat snacks available. ? Limit sugary drinks, such as soda, fruit juice, sweetened iced tea, and flavored milk. ? Drink enough water to keep your urine pale yellow. ? Do not follow a fad diet. Fad diets can be unhealthy and even dangerous. ? Other healthful choices include: ? Eat at home more often. This gives you more control over what you eat. ? Learn to read food labels. This will help you understand how much food is considered one serving. ? Learn what a healthy serving size is. Physical activity ? Exercise regularly, as told by your health care provider. ? Most adults should get up to 150 minutes of moderate-intensity exercise every week. ? Ask your health care provider what types of exercise are safe for you and how often you should exercise. ? Warm up and stretch before being active. ? Cool down and stretch after being active. ? Rest between periods of activity. Lifestyle ? Work with your health care provider and a dietitian to set a weight-loss goal that is healthy and reasonable for you. ? Limit your screen time. ? Find ways to reward yourself that do not involve food. ? Do not drink alcohol if: ? Your health care provider tells you not to drink. ? You are , may be , or are planning to become . ? If you drink alcohol: ? Limit (more content not included)... [facility] Clinical Note 05-30-2020 Note Date & Type Note Facility 05-30-2020 Note OPERATIVE NOTE OPERATION DATE: 05-30-20 ANESTHETIC:General by LMA. PREOPERATIVE DIAGNOSIS: Right ureteral calculus. POSTOPERATIVE DIAGNOSIS:Same. PROCEDURE NAME: 1. Cystoscopy. 2. Right rigid ureteral dilation. 3. Right ureteroscopy. 4. Holmium laser lithotripsy of two ureteral calculi. 5. Stone basket extraction of two ureteral calculi. 6. Placement of a 7 Peruvian variable length right ureteral stent. COMPLICATIONS: None. [...] fashion. I started by passing a 22 Peruvian Olympus cystoscope per urethra and into the [...] I then used an 8 and 10 somali rigid dilator to dilate the distal right [...] the bladder. I then slid a 7 somali variable length right ureteral stent over the wire up into the kidney and then removed the wire. There were good curls in the kidney and in the bladder. I then used the [employer] evacuator to get all the stone pieces out of the bladder and these were sent for stone analysis. The bladder was then drained of it's contents and the scope was then removed. The anesthetic was then reversed. She was then transferred to a rbulger bed and wheeled to the Recovery Room in stable condition. She tolerated it well. There were no complications. She will be discharged to home later today with a script for Keflex 500 mg daily #21 and oxybutynin ER 10 mg daily #21. We will bring her back in a week or two for right ESWL and stent removal. [facility] Signed and Approved by: DR JESUS PORTILLO . 06/06/2020 11:38:00 [facility] Evaluation + Plan note Note Date & Type Note Facility Evaluation + Plan note No data available for this section [facility] Hospital Discharge instructions Note Date & Type Note Facility Hospital Discharge instructions No data available for this section [facility] Progress note Note Date & Type Note Facility Progress note No data available for this section [facility] Summary Purpose Family History No Family History Records Found No data available for this section No data available for this section No Family History Records FoundNo Family History Records Found No data available for this section Advance Directives No Advanced Directives Records FoundNo Advanced Directives Records FoundNo Advanced Directives Records Found Additional Source Comments INFORMATION SOURCE (unrecogn ized section and content) DATE CREATED AUTHOR 06/15/[address] [facility] DATE CREATED AUTHOR AUTHOR'S ORGANIZ ATION 09/14/2023 [facility] DATE CREATED AUTHOR AUTHOR'S ORGANIZ ATION 09/18/2023 [facility] EPIC Patient Care team informatio n (unrecognized section and content) Personnel Name: Layla Montalvo MD Address: Address: [address] [place] Personnel Name: Layla Montalvo MD Address: Address: [address] [place], [address] Personnel Name: Layla Montalvo MD Address: Address: [address] [place], [address] FOR RECORDS PERTAINING TO PATIENTS WHO ARE [...] BE BASED ON THE PRIMARY CLINICAL RECORDS. [facility]. provides no warranty or guarantee of the accuracy or completeness of information in this document.
== END 2023-09-21 13:29 | disposition home or self-care (01) ==
LOC: VC 12:54
PROVIDERS: PCP Radiology Diagnostic Radiology; Visit Provider Radiology Diagnostic Radiology
DX: I83.813 Varicose veins of bilateral lower extremities with pain (principal)
CPT/HCPCS: 36478

== ENCOUNTER 2023-10-05 10:57 | Outpatient (OUT) | payer MEDICARE, SELFPAY ==
[2023-09-28 07:46] VITALS: BMI 27.4
--- NOTE | 2023-09-28 07:46 | V.VEINS.HP ---
Vital Signs 09/28/23 07:46 Height 5 ft 6 in Weight 77 kg BMI 27.4 Varicose Veins Patient in this day for follow up ultrasound post EVLT of left SSV Jericho Santana MD personally performed the services described in this documentation, as scribed by Sharon Castillo RVT, RDMS in my presence and it is both accurate and complete. IShraon RVT, RDMS, am scribing for, and in the presence of, Dr. Jericho Aviles and in the presence of the patient. medial thigh: bilateral, knee: bilateral, calf: bilateral, ankle: bilateral and zepeda: bilateral dull, sharp and intermittent 8 2 months Worsened in recent months: Yes standing bed rest, elevating extremities and compression stockings Reports muscle spasms of leg, heaviness, edema and leg edema History of lower extremity trauma: No Superficial thrombophlebitis: No Family history of varicose veins: unknown Has patient had previous lower extremity venous surgery: No Patient has previously received the following treatment(s) for lower extremity varicose veins: Reports sclerotherapy Does patient have a history of : yes Does patient intend to have future pregnancies: no Has patient had lower extremity venous scan with relux testing: Yes Support hose used: Yes Problems walking or doing physical activity: Yes How does it affect you: Pain and heaviness when walking Do you walk much: Yes Do you stand much: Yes Medication compliance: good Review of Systems ROS Narrative Jericho Santana MD personally performed the services described in this documentation, as scribed by Sharon Castillo RVT, RDMS in my presence and it is both accurate and complete. ISharon RVT, RDMS, am scribing for, and in the presence of, Dr. Jericho Aviles and in the presence of the patient. Status of ROS 10 or more systems reviewed and unremarkable except as noted in history and below Cardiovascular Reports: edema, swelling of feet/ankles and leg pain with exertion Musculoskeletal Reports: extremity pain, extremity swelling, limited range of motion, joint swelling, muscle cramps and muscle weakness Integumentary/Breast Reports: itching, redness, skin pain, skin tenderness, skin swelling, new lesion, non-healing lesion and changes in skin color Neurological Reports: numbness in extremities and weakness in extremities [facility] Medical History (Updated 08/24/23 @ 15:05 by Stefan Ross) Phlebitis and thrombophlebitis of superficial vessels of right lower extremity ?I80.01 - Phlebitis and thrombophlebitis of superficial vessels of right lower extremity (ICD-10) Phlebitis and thrombophlebitis of superficial vessels of left lower extremity ?I80.02 - Phlebitis and thrombophlebitis of superficial vessels of left lower extremity (ICD-10) Varicose veins of bilateral lower extremities with pain ?I83.813 - Varicose veins of bilateral lower extremities with pain (ICD-10) Kidney stone ?N20.0 - Calculus of kidney (ICD-10) Insomnia ?G47.00 - Insomnia, unspecified (ICD-10) Hypotension ?I95.9 - Hypotension, unspecified (ICD-10) Hypertension ?I10 - Essential (primary) hypertension (ICD-10) Surgical History (Updated 08/10/23 @ 15:02 by Sharon Castillo) Status post ablation of incompetent vein using laser ?Z98.890 - Other specified postprocedural states (ICD-10) History of bilateral oophorectomy ?Z90.722 - Acquired absence of ovaries, bilateral (ICD-10) History of plastic surgery ?Z98.890 - Other specified postprocedural states (ICD-10) History of gastric bypass ?Z98.84 - Bariatric surgery status (ICD-10) Family History (Updated 08/10/23 @ 15:02 by Sharon Castillo) Other Family history not known due to adoption Social History (Updated 08/10/23 @ 15:03 by Sharon Castillo) Within the past year, how often did you have a drink containing alcohol: 2-4 times a month Smoking status: Never smoker Non-prescribed substance use: denies use Meds Home Medications and Allergies Home Medications ?Medication ?Instructions ?Recorded ?Confirmed ?Type aspirin 81 mg capsule 81 mg PO DAILY 08/10/23 08/10/23 History carvedilol 6.25 mg tablet (Coreg) 6.25 mg PO BID 08/10/23 08/10/23 History cholecalciferol (vitamin D3) 50 50 mcg PO DAILY 08/10/23 08/10/23 History mcg (2,000 unit) capsule (D3-1999) levothyroxine 100 mcg tablet 100 mcg PO DAILY 08/10/23 08/10/23 History (Euthyrox) trazodone 50 mg tablet 25 mg PO DAILY 08/10/23 08/10/23 History triamterene 37.5 1 cap PO DAILY 08/10/23 08/10/23 History mg-hydrochlorothiazide 25 mg capsule Allergies Allergy/AdvReac Type Severity Reaction Status Date / Time No Known Drug Allergies Allergy Verified 07/30/23 17:01 Exam Narrative Exam Narrative: Jericho Santana MD personally performed the services described in this documentation, as scribed by Sharon Castillo RVT, RDMS in my presence and it is both accurate and complete. Sharon Santana RVT, RDMS, am scribing for, and in the presence of, Dr. Jericho Aviles and in the presence of the patient. Constitutional Documenting provider has reviewed patient's vital signs: yes Common normals: oriented x3 Lymph Lymphatic: no lymphedema noted Cardio Common normals: regular rate Rate: regular rate Peripheral pulses: posterior tibial pulses present and dorsalis pedis pulses present Extremity Common normals: normal capillary refill General: calf tenderness and edema Right lower extremity: upper leg and lower leg Left lower extremity: upper leg and lower leg Neuro Common normals: oriented x3 Results Imaging Venous US: Radiologist's impression: The ultrasound demonstrates Assessment and Plan Assessment and Plan (1) Phlebitis and thrombophlebitis of superficial vessels of left lower extremity: (2) Varicose veins of bilateral lower extremities with pain: Plan Patient in today for follow up ultrasound of lower extremity following treatment of EVLT of left leg SSV completed on 09/21/23. Jericho Santana MD personally performed the services described in this documentation, as scribed by Sharon Castillo RVT, RDMS in my presence and it is both accurate and complete. Sharon Santana RVT, RDMS, am scribing for, and in the presence of, Dr. Jericho Aviles and in the presence of the patient.
--- NOTE | 2023-09-28 07:49 | W.VEIN ---
Discharge Plan Discharge Disposition: Home, Self-Care Outpatient Diagnostics: VC Endovenous Ablation 1VeinRT (Routine) Timeframe: 2 Weeks Facility: [facility] - Location: [facility] Ordered By: Jericho Aviles Plan of Treatment: EVLT of right leg SSV. Print Language: Norwegian
--- NOTE | 2023-10-05 10:58 | VEIN_ITS ---
Patient Name: NEO ZHENG MR#: [id number] : 1960 Exam Date: 10/05/2023 Ordering Doctor: DR JERICHO AVILES M.D. RADIOLOGY REPORT PROCEDURE: [facility] - OFFICE VISIT FOLLOW UP COMPARISON: [facility] EST [facility], 09/07/2023. [facility] EST [facility], 08/10/2023. PROGRESS NOTES: The patient reports no significant problems following intravenous laser ablation of the left small saphenous vein. The patient has worn her compression stocking. The patient has tried exercise. The patient did not require oral analgesics Physical exam demonstrates no bruising. The incision is sealed. The small saphenous vein cannot be palpated. No erythema or warmth to suggest cellulitis thrombophlebitis. No active ulceration. Hemosiderin staining along the length of the treated right great saphenous vein is observed. Review of the ultrasound performed the same day demonstrates occlusive thrombus extending throughout the treated left small saphenous vein with no deep vein thrombus. The patient expressed a desire to proceed with treatment of incompetent right small saphenous vein. VEIN/[facility] EST LMTD IMPRESSION: 1. Successful ablation of the left small saphenous vein. 2. Persistent incompetent right small saphenous vein. PLAN: Intravenous laser ablation right small saphenous vein Nurse notes, history and physical were reviewed and confirmed, see attached forms. The nurse was present throughout the physical exam and consultation Dictated by: Jericho Aviles MD on 10/05/2023 at 11:51 Approved by: Jericho Aviles MD on 10/05/2023 at 11:53
--- NOTE | 2023-10-05 10:58 | VEIN_ITS ---
Patient Name: NEO ZHENG MR#: [id number] : 1960 Exam Date: 10/05/2023 Ordering Doctor: DR JERICHO AVILES M.D. RADIOLOGY REPORT PROCEDURE: VC EXT VENOUS LT LIMITED COMPARISON: VC EXT VENOUS LT LIMITED, 08/10/2023. INDICATIONS: I80.02 - Phlebitis and thrombophlebitis of superficial ve... TECHNIQUE: Lower extremity merdano scale and Duplex Doppler evaluation of the deep venous system from the inguinal ligament through the calf veins. FINDINGS: REGION: Left lower extremity. THROMBI: Negative for DVT. Heat induced thrombus visualized arising at proximal calf and extending to distal calf. COMPRESSIBILITY: Non-compressible segments corresponding to thrombus FLOW: Areas of no flow corresponding to thrombus CONCLUSION: Post ablation occlusion of the left small saphenous vein with no deep vein thrombus Dictated by: Jericho Aviles MD on 10/05/2023 at 11:50 Approved by: Jericho Aviles MD on 10/05/2023 at 11:51
--- NOTE | 2023-10-05 11:04 | VEINCLINIC_ITS ---
Vital Signs 09/28/23 07:46 10/05/23 11:31 Height 5 ft 6 in 5 ft 6 in Weight 77 kg 77 kg BMI 27.4 27.4 Varicose Veins Patient in this day for follow up ultrasound post EVLT of left SSV. Jericho Santana MD personally performed the services described in this documentation, as scribed by Sharon Castillo RVT, RDMS in my presence and it is both accurate and complete. Sharon Santana RVT, RDMS, am scribing for, and in the presence of, Dr. Jericho Aviles and in the presence of the patient. medial thigh: bilateral, knee: bilateral, calf: bilateral, ankle: bilateral and zepeda: bilateral dull, sharp and intermittent 8 2 months Worsened in recent months: Yes standing bed rest, elevating extremities and compression stockings Reports muscle spasms of leg, heaviness, edema and leg edema History of lower extremity trauma: No Superficial thrombophlebitis: No Family history of varicose veins: unknown Has patient had previous lower extremity venous surgery: No Patient has previously received the following treatment(s) for lower extremity varicose veins: Reports sclerotherapy Does patient have a history of : yes Does patient intend to have future pregnancies: no Has patient had lower extremity venous scan with relux testing: Yes Support hose used: Yes Problems walking or doing physical activity: Yes How does it affect you: Pain and heaviness when walking Do you walk much: Yes Do you stand much: Yes Medication compliance: good Review of Systems ROS Narrative Jericho Santana MD personally performed the services described in this documentation, as scribed by Sharon Castillo RVT, RDMS in my presence and it is both accurate and complete. Sharon Santana RVT, RDMS, am scribing for, and in the presence of, Dr. Jericho Aviles and in the presence of the patient. Status of ROS 10 or more systems reviewed and unremark able except as noted in history and below Cardiovascular Reports: edema, swelling of feet/ankles and leg pain with exertion Musculoskeletal Reports: extremity pain, extremity swelling, limited range of motion, joint swelling, muscle cramps and muscle weakness Integumentary/Breast Reports: itching, redness, skin pain, skin tenderness, skin swelling, new lesion, non-healing lesion and changes in skin color Neurological Reports: numbness in extremities and weakness in extremities PFSH [facility] Medical History (Updated 08/24/23 @ 15:05 by Stefan Ross) Phlebitis and thrombophlebitis of superficial vessels of right lower extremity ?I80.01 - Phlebitis and thrombophlebitis of superficial vessels of right lower extremity (ICD-10) Phlebitis and thrombophlebitis of superficial vessels of left lower extremity ?I80.02 - Phlebitis and thrombophlebitis of superficial vessels of left lower extremity (ICD-10) Varicose veins of bilateral lower extremities with pain ?I83.813 - Varicose veins of bilateral lower extremities with pain (ICD-10) Kidney stone ?N20.0 - Calculus of kidney (ICD-10) Insomnia ?G47.00 - Insomnia, unspecified (ICD-10) Hypotension ?I95.9 - Hypotension, unspecified (ICD-10) Hypertension ?I10 - Essential (primary) hypertension (ICD-10) Surgical History (Updated 08/10/23 @ 15:02 by Sharon Castillo) Status post ablation of incompetent vein using laser ?Z98.890 - Other specified postprocedural states (ICD-10) History of bilateral oophorectomy ?Z90.722 - Acquired absence of ovaries, bilateral (ICD-10) History of plastic surgery ?Z98.890 - Other specified postprocedural states (ICD-10) History of gastric bypass ?Z98.84 - Bariatric surgery status (ICD-10) Family History (Updated 08/10/23 @ 15:02 by Sharon Castillo) Other Family history not known due to adoption Social History (Updated 08/10/23 @ 15:03 by Sharon Castillo) Within the past year, how often did you have a drink containing alcohol: 2-4 times a month Smoking status: Never smoker Non-prescribed substance use: denies use Meds Home Medications and Allergies Home Medications ?Medication ?Instructions ?Recorded ?Confirmed ?Type aspirin 81 mg capsule 81 mg PO DAILY 08/10/23 08/10/23 History carvedilol 6.25 mg tablet (Coreg) 6.25 mg PO BID 08/10/23 08/10/23 History cholecalciferol (vitamin D3) 50 50 mcg PO DAILY 08/10/23 08/10/23 History mcg (2,000 unit) capsule (D3-2000) levothyroxine 100 mcg tablet 100 mcg PO DAILY 08/10/23 08/10/23 History (Euthyrox) trazodone 50 mg tablet 25 mg PO DAILY 08/10/23 08/10/23 History triamterene 37.5 1 cap PO DAILY 08/10/23 08/10/23 History mg-hydrochlorothiazide 25 mg capsule Allergies Allergy/AdvReac Type Severity Reaction Status Date / Time No Known Drug Allergies Allergy Verified 07/30/23 17:01 Exam Narrative Exam Narrative: Jericho Santana MD personally performed the services described in this documentation, as scribed by Sharon Castillo RVT, RDMS in my presence and it is both accurate and complete. Sharon Santana RVT, RDMS, am scribing for, and in the presence of, Dr. Jericho Aviles and in the presence of the patient. Constitutional Documenting provider has reviewed patient's vital signs: yes Common normals: oriented x3 Lymph Lymphatic: no lymphedema noted Cardio Common normals: regular rate Rate: regular rate Peripheral pulses: posterior tibial pulses present and dorsalis pedis pulses present Extremity Common normals: normal capillary refill General: calf tenderness and edema Right lower extremity: upper leg and lower leg Left lower extremity: upper leg and lower leg Neuro Common normals: oriented x3 Results Imaging Venous US: Radiologist's impression: The ultrasound demonstrates Heat induced thrombus visualized arising at proximal calf and extending to distal calf. Assessment and Plan Assessment and Plan (1) Phlebitis and thrombophlebitis of superficial vessels of left lower extremity: (2) Varicose veins of bilateral lower extremities with pain: Plan Patient in today for follow up ultrasound of lower extremity following treatment of EVLT of left leg SSV completed on 09/21/23. Jericho Santana MD personally performed the services described in this documentation, as scribed by Sharon Castillo RVT, RDMS in my presence and it is both accurate and complete. Sharon Santana RVT, RDMS, am scribing for, and in the presence of, Dr. Jericho Aviles and in the presence of the patient.
--- OUTSIDE RECORDS SUMMARY | 2023-10-05 11:15 | XMS_ITS | CCD ---
Author Organization [facility] Care Team Providers Care Produce Department Supervisor Name Role Phone LINDSEY, DR LEE Admitting Unavailable PORTILLO, DR LEE Attending Unavailable ALLSOP, DR LANDRY Referring Unavailable PORTILLO, DR LEE Consulting Unavailable WEST, DR MANN Bueno Consulting Unavailable DORKOJACQUIE REYES Consulting Unavailable PORTILLO, DR LEE Admitting Unavailable PORTILLO, DR LEE Attending Unavailable PORTILLO, DR LEE Consulting Unavailable ALLSOP, DR LADNRY Referring Unavailable ZIEBER, DR NOY De Leon Consulting Unavailable DARWICH, ANNE Consulting Unavailable PORTILLO, DR LEE Admitting Unavailable PORTILLO, DR LEE Attending Unavailable Layla Montalvo Primary Care Physician [phone] GRIS MOURA Attending Unavailable LAYLA MONTALVO Attending Unavailable Layla Montalvo Admitting Unavailable Layla Montalvo Attending Unavailable REFERRAL, SELF Attending Unavailable Yolis Boyd Attending Unavailable Yolis Boyd Admitting Unavailable Yolis Boyd Attending Unavailable MD Layla Montalvo Attending Unavailable MD Layla Montalvo Admitting Unavailable Allergies Allergy Classification Reported Allergen(s) Allergy Type Date of Onset Reaction(s) Facility Opioid Agonists (1 source) Morphine Drug Allergy 1 [facility] Repository (4 sources) Morphine; Translations: [morphine] Drug Allergy severe vomitting [facility] Medications Current Medications Medication Drug Class(es) Dates Sig (Normalized) Sig (Original) acetaminophen 325 mg / HYDROcodone bitartrate 5 mg oral tablet (3 sources) Opioid Agonist Start: 1 [place] 325 mg-5 mg oral tablet 1 tab(s), Oral, q6hr for pain, 10 tab(s), Refill(s) 0, Pain, [id number], 170, cm, 04/21/21 10:19:00 EDT, Height/Length Dosing, 98.5, kg, 05/29/20 [...] day(s), # 30 tab(s), Refills(s) 0, Pharmacy: [facility], 167, cm, 09/13/23 11:24:00 [...] TID, # 10 tab(s), Refills(s) 0, Pharmacy: [id number], 167, cm, 05/24/20 5:39:00 EDT, Height/Length [...] days, # 4 cap(s), Refills(s) 0, Pharmacy: [facility]pharmacy #[id number], 167, cm, 05/24/20 5:39:00 EDT, Height/Length Dosing, 93, kg, 05/24/20 5:39:00 EDT, Weight Dosing Start Date: 05/24/20 Status: Ordered topiramate 25 mg oral tablet (6 sources) Start: 6 take 1 tablet by mouth twice daily Topamax 25 mg Tab 25 mg = 1 tab(s), Oral, BID, # 60 tab(s), Refills(s) 0, Pharmacy: [facility] #[id number] Start Date: 09/17/15 Status: Ordered traMADol [...] day, # 14 tab(s), Refills(s) 0, Pharmacy: [facility]pharm[facility] #[id number], 167, cm, 05/24/20 5:39:00 EDT, Height/Length [...] 05-29-2020 Chronic Other aftercare (1 source) Other care home (current) drug therapy; Translations: [OTH [facility] CURRENT DRUG THERAPY] Onset: 06-13-2020 Episodic Other aftercare (1 source) 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; Translations: [[facility] CURRENT USE OF ASPIRIN] Onset: 06-06-2020 Episodic [...] Test Name Value Interpretation Reference Range Facility CBC w/ Auto Diffon 4 Basophils/100 WBC (Bld) 0.8 % Normal 0.0-2.0 [facility] Comment on above: Performed By: #### 2 [id number] #### [facility] [address] [place] [address] Basophils/Leukocytes Auto (Bld) [Pure # fraction] 0.1 E9/L Normal 0.0-0.2 [facility] Comment on above: Performed By: #### 2 [id number] #### [facility] [address] [place] [address] Eosinophils (Bld) [#/Vol] 0.2 E9/L Normal 0.0-0.5 [facility] Comment on above: Performed By: #### 2 [id number] #### [facility] [address] [place] [address] Eosinophils/100 WBC (Bld) 1.9 % Normal 0.0-8.0 [facility] Comment on above: Performed By: #### 2 [id number] #### [facility] [address] [place] [address] Erythrocyte distribution width (RBC) [Ratio] 14.2 % Normal 10.9-14.2 [facility] Comment on above: Performed By: #### 2 [id number] #### [facility] [address] [place] [address] Hematocrit (Bld) [Volume fraction] 36.2 % Normal 34.0-46.0 [facility] Comment on above: Performed By: #### 2 [id number] #### [facility] [address] [place] [address] Hemoglobin (Bld) [Mass/Vol] 12.5 g/dL Normal 12.0-16.0 [facility] Comment on above: Performed By: #### 2 453254 #### [facility] [address] [place] [address] Lymphocytes (Bld) [#/Vol] 3.0 E9/L Normal 1.0-4.0 [facility] Comment on above: Performed By: #### 2 [id number] #### [facility] [address] [place] [address] Lymphocytes/100 WBC (Bld) 38.3 % Normal 14.0-50.0 [facility] Comment on above: Performed By: #### 2 [id number] #### [facility] [address] [place] [address] MCH (RBC) [Entitic mass] 32.9 pg Normal 27.0-34.0 [facility] Comment on above: Performed By: #### 2 694277 #### [facility] [address] [place] [address] MCHC (RBC) [Mass/Vol] 34.6 g/dL Normal 31.4-36.0 [facility] Comment on above: Performed By: #### 2 182474 #### [facility] [address] [place] [address] MCV (RBC) [Entitic vol] 95.2 fL Normal 80.0-100.0 [facility] Comment on above: Performed By: #### 2 478751 #### [facility] [address] [place] [address] Monocytes (Bld) [#/Vol] 0.9 E9/L Normal 0.2-1.0 [facility] Comment on above: Performed By: #### 2 799360 #### [facility] [address] [place] [address] Neutrophils (Bld) [#/Vol] 3.8 E9/L Normal 2.0-7.5 [facility] Comment on above: Performed By: #### 2 [id number] #### [facility] [address] [place] [address] Neutrophils/100 WBC (Bld) 47.3 % Normal 36.0-75.0 [facility] Comment on above: Performed By: #### 2 826255 #### [facility] [address] [place] [address] Platelet 259.0 E9/L Normal 150.0-500.0 [facility] Comment on above: Performed By: #### 2 349781 #### [facility] [address] [place] [address] Platelet mean volume (Bld) [Entitic vol] 8.4 fL Normal 6.4-10.8 [facility] Comment on above: Performed By: #### 2 [id number] #### [facility] [address] [place] [address] RBC (Bld) [#/Vol] 3.8 E12/L Low 4.3-5.9 [facility] Comment on above: Performed By: #### 2 648294 #### [facility] [address] [place] [address] WBC corrected for nucl RBC Auto (Bld) [#/Vol] 7.9 E9/L Normal 4.0-11.0 [facility] Comment on above: Performed By: #### 2 825297 #### [facility] [address] [place] [address] CHEMISTRYOrdered By: SYSTEM SYSTEM on 09-20-2023 Albumin [...] mg/mg High 10 - 20 Remisol Chem CMPon 09-20-2023 Albumin [Mass/Vol] 4.1 g/dL Normal 3.3-5.0 [facility] Comment on above: Performed By: #### 2 813802 #### [facility] [address] [place] [address] Albumin/Globulin (S) [Mass conc ratio] 1.5 Normal 1.1-2.2 [facility] Comment on above: Performed By: #### 2 197341 #### [facility] [address] [place] [address] ALP [Catalytic activity/Vol] 76 Int._Unit/L Normal 21-98 [facility] Comment on above: Performed By: #### 2 505555 #### [facility] [address] [place] [address] ALT No additional P-5'-P [Catalytic activity/Vol] 22 Int._Unit/L Normal 6-46 [facility] Comment on above: Performed By: #### 2 576331 #### [facility] [address] [place] [address] Anion gap [Moles/Vol] 11 mmol/L Normal 6-16 [facility] Comment on above: Performed By: #### 2 462952 #### [facility] [address] [place] [address] AST [Catalytic activity/Vol] 19 Int._Unit/L Normal 5-43 [facility] Comment on above: Performed By: #### 2 950067 #### [facility] [address] [place] [address] Bilirubin [Mass/Vol] 0.4 mg/dL Normal 0.0-1.1 [facility] Comment on above: Performed By: #### 2 961237 #### [facility] [address] [place] [address] Calcium [Mass/Vol] 9.4 mg/dL Normal 8.9-11.1 [facility] Comment on above: Performed By: #### 2 339860 #### [facility] [address] [place] [address] Chloride [Moles/Vol] 104 mmol/L Normal 101-111 [facility] Comment on above: Performed By: #### 2 871721 #### [facility] [address] [place] [address] CO2 [Moles/Vol] 27 mmol/L Normal 21-31 [facility] Comment on above: Performed By: #### 2 373404 #### [facility] [address] [place] [address] Creatinine [Mass/Vol] 1.0 mg/dL Normal 0.5-1.3 [facility] Comment on above: Performed By: #### 2 508265 #### [facility] [address] [place] [address] Globulin (S) [Mass/Vol] 2.7 g/dL Normal 1.4-4.0 [facility] Comment on above: Performed By: #### 2 161668 #### [facility] [address] [place] [facility] [place] [address] Glucose [Mass/Vol] 88 mg/dL Normal 55-199 [facility] Comment on above: Performed By: #### 2 116210 #### [facility] [address] [place] [address] Potassium [Moles/Vol] 4.1 mmol/L Normal 3.5-5.3 [facility] Comment on above: Performed By: #### 2 445394 #### [facility] [address] [place] [address] Protein [Mass/Vol] 6.8 g/dL Normal 6.0-7.8 [facility] Comment on above: Performed By: #### 2 [id number] #### [facility] [address] [place] [address] Sodium [Moles/Vol] 138 mmol/L Normal 135-145 [facility] Comment on above: Performed By: #### 2 516073 #### [facility] [address] [place] [address] Urea nitrogen [Mass/Vol] 25 mg/dL High 5-21 [facility] Comment on above: Performed By: #### 2 [id number] #### [facility] [address] [place] [address] Urea nitrogen/Creatinine [Mass ratio] 25 No Units High 10-20 [facility] Comment on above: Performed By: #### 2 932629 #### [facility] [address] [place] [address] HEMATOLOGYOrdered By: SYSTEM SYSTEM on 09-20-2023 Basophils/100 [...] Normal 4.0 - 11.0 E9/L Remisol Heme Lipid Panelon 09-20-2023 Cholesterol [Mass/Vol] 184 mg/dL Normal 120-200 [facility] Comment on above: Performed By: #### 2 [id number] #### [facility] [address] [place] [address] Cholesterol in HDL [Mass/Vol] 71 mg/dL Invalid Interpretation Code [facility] Comment on above: Result Comment: '>= 60 LOW RISK' '<= 40 HIGH RISK' Performed By: #### 2 606227 #### [facility] [address] [place] [address] Cholesterol in LDL [Mass/Vol] 92 mg/dL Normal <=129 [facility] Comment on above: Performed By: #### 2 461631 #### [facility] [address] [place] [address] Cholesterol in VLDL [Mass/Vol] 31 mg/dL Normal 7-40 [facility] Comment on above: Performed By: #### 2 297208 #### [facility] [address] [place] [address] Triglyceride [Mass/Vol] 153 mg/dL High <=149 [facility] Comment on above: Performed By: #### 2 882042 #### [facility] [address] [place] [address] TSH With T4fr Reflexon 09-19 TSH Qn 1.88 m[IU]/L Normal 0.34-5.60 [facility] Comment on above: Performed By: #### 1 [id number] #### [facility] [address] [place] [address] eGFRon 09-20-2023 eGFR 62 mL/min/1.73 m2 Normal >=59 [facility] Comment on above: Order Comment: Order added by Discern Expert. Performed By: #### 1 [id number] #### [facility] [address] [place] [address] Ambulatory Visit Summaryon 0 09-13-2023 Ambulatory Visit Summary Ambulatory Visit Summary NEO ZHENG :1960 Visit Date:09/13/2023 Ambulatory Visit Instructions Your Diagnosis Sciatic pain Left hip pain BMI 33.0-33.9,adult Your Care Team Attending Physician - Deb GALVAN, Leana Primary Care Physician - Katia PELAYO, Layla Narayan This Is Your Medications List acetaminophen-hydroc odone ([place] 325 mg-5 mg oral tablet) aspirin (aspirin [...] Sciatic pain Duration: 10 Days Pickup at [facility] 1985 Unchanged acetaminophen-hydroc odone ([place] 325 mg-5 mg oral tablet) 1 Tablets [...] Once a day (at bedtime) Pharmacy Information [facility]: [address] [place], [place] [id number] [phone] Allergies morphine (severe vomitting) Problems Ongoing - [...] for choosing us for your care. [facility] Family Medicine Office/Clini c Noteon 09-13-2023 Family [...] with voice recognition software. Occasional wrong-word or ?lmvth-y-xsez? substitutions may have occurred due to the [...] tenderness at the the area of the zdue-mvw-utpzcy joint and has pain with external rotation of the left hip. States sometimes her back also hurts. She has been using rcxw-iut-nuedbky medications without much relief. Review of Systems [...] day(s), # 30 tab(s), Refills(s) 0, Pharmacy: [facility], 167, cm, 09/13/23 11:24:00 EDT, Height/Length Dosing, 96, kg, 09/13/23 11:24:00 EDT, Weight Dosing Follow-up With When Contact Information Katia PELAYO, Layla Narayan [address] [place] [address]- Additional Instructions: Patient Education Obesity, Adult BMI for Adults Sciatica, Pvxg-mk-Pbja Problem List/Past Medical History Ongoing Acid reflux [...] lisinopril 10 (more content not included)... Normal [facility] Comment on above: Result Comment: Elec tronically [...] Stephon Yang MD Transcribed by: ANAHI Technologist: ANNETTE Technical Comments Radiation Dose: Ka,r in mGy = na DAP = na Normal [facility] CALCULI, URINARYon 1 2,8 Dihydroxyadenine Normal [facility] Comment on above: Performed By: #### C ALCULI #### [facility] [address] [place] [address] Cristi Bina Ammonium Acid Urate Normal [facility] Comment on above: Performed By: #### C ALCULI #### [facility] [address] [place] [address] Cristi Bina Bilirubin Ql (U) Normal [facility] Comment on above: Performed By: #### C ALCULI #### [facility] [address] [place] [address] Cristi Bina Ca Oxalate Dihydrate 20 % Normal [facility] Comment on above: Performed By: #### C ALCULI #### [facility] [address] [place] [address] Cristi Bina CaHPO4 (Brushite) Normal [facility] Comment on above: Performed By: #### C ALCULI #### [facility] [address] [place] [address] Cristi Bina Calcium Bilirubinate Normal [facility] Comment on above: Performed By: #### C ALCULI #### [facility] [address] [place] [address] Cristi Bina Calcium Carbonate Normal [facility] Comment on above: Performed By: #### C ALCULI #### [facility] [address] [address] Cristi Bina Calcium Oxalate Monohydrate 80 % Normal [facility] Comment on above: Performed By: #### C ALCULI #### [facility] [address] [address] Cristi Bina Calcium Palmitate Normal [facility] Comment on above: Performed By: #### C ALCULI #### [facility] [address] [address] Cristi Bina Calcium Phosphate Normal [facility] Comment on above: Performed By: #### C ALCULI #### [facility] [address] [address] Cristi Bina Calcium Stearate Normal [facility] Comment on above: Performed By: #### C ALCULI #### [facility] [address] [address] Cristi Bina Carbonate Apatite Normal [facility] Comment on above: Performed By: #### C ALCULI #### [facility] [address] [address] Cristi Bina Cellular Material Normal [facility] Comment on above: Performed By: #### C ALCULI #### [facility] [address] [address] Cristi Bina Cholesterol Normal [facility] Comment on above: Performed By: #### C ALCULI #### [facility] [address] [address] Cristi Bina Color (U) Brown Normal [facility] Comment on above: Performed By: #### C ALCULI #### [facility] [address] [address] Cristi Bina Comment Normal [facility] Comment on above: Performed By: #### C ALCULI #### [facility] [address] [address] Cristi Bina Comment: Comment Normal [facility] Comment on above: Result Comment: Vijay graham questions regarding Calculi Analysis contact [facility] at: [phone]. Performed By: #### C ALCULI #### [facility] [address] [address] Cristi Bina Composition Comment Normal [facility] Comment on above: Result Comment: Perc entage (Represents the % composition) Performed By: #### C ALCJOSÉ MANUEL #### [facility] [address] [place] [address] Cristi Bina Cystine Normal [facility] Comment on above: Performed By: #### C ALCJOSÉ MANUEL #### [facility] [address] [address] Cristi Bina Disclaimer: Comment Normal [facility] Comment on above: Result Comment: This test was developed and its performance characteristics determined by [facility]. It has not been cleared or approved by the Food and Drug Administration. Performed By: #### C STEPHEN #### [facility] [address] [place] [address] Cristi Bina Dried Blood Normal [facility] Comment on above: Performed By: #### C ALCJOSÉ MANUEL #### [facility] [address] [place] [address] Cristi Bina Drug or Metabolite Normal [facility] Comment on above: Performed By: #### C ALCJOSÉ MANUEL #### [facility] [address] [place] [address] Cristi Bina Hydroxyapatite Normal [facility] Comment on above: Performed By: #### C ALCJOSÉ MANUEL #### [facility] [address] [place] [address] Cristi Bina Mg NH4 PO4 (Struvite) Normal [facility] Comment on above: Performed By: #### C ALCULI #### [facility] [address] [place] [address] Cristi Bina MgHPO4 (Newberyite) Normal [facility] Comment on above: Performed By: #### C ALCJOSÉ MANUEL #### [facility] [address] [place] [address] Cristi Bina Other component(s) Normal [facility] Comment on above: Performed By: #### C ALCJOSÉ MANUEL #### [facility] [address] [place] [address] Cristi Bina PDF . Normal [facility] Comment on above: Performed By: #### C ALCULI #### [facility] [address] [address] Cristi Bina Photo Comment Normal [facility] Comment on above: Result Comment: Phot ograph will follow under a separate cover Performed By: #### C ALCULI #### [facility] [address] [address] Cristi Bina Please note: Comment Normal [facility] Comment on above: Result Comment: Calc josé manuel report will follow via computer, mail or boatswain's mate delivery. Performed By: #### C ALCULI #### [facility] [address] [address] Cristi Bina Size 4x6 [facility] Comment on above: Result Comment: Mult iple pieces received. Dimensions of the largest piece reported. Performed By: #### C ALCULI #### [facility] [address] [address] Cristi Bina Sodium Acid Urate Normal [facility] Comment on above: Performed By: #### C ALCULI #### [facility] [address] [address] Cristi Bina Source Comment [facility] Comment on above: Result Comment: Righ t Ureter Performed By: #### C ALCULI #### [facility] [address] [address] Cristi Bina Triamterene [facility] Comment on above: Performed By: #### C ALCULI #### [facility] [address] [address] Cristi Bina Uric Acid [facility] Comment on above: Performed By: #### C ALCULI #### [facility] [address] [address] Cristi Bina Uric Acid Dihydrate Normal [facility] Comment on above: Performed By: #### C ALCULI #### [facility] [address] [address] Cristi Bina Weight 122 mg Normal [facility] Comment on above: Performed By: #### C ALCULI #### [facility] [address] [place], [place] [address] Cristi Curran Xanthine Normal [facility] Comment on above: Performed By: #### C ALCULI #### [facility] [address] [place], [place] [address] Cristi Curran XR KUB 1 VIEWon 06-06-2020 XR KUB [...] by: MANN DIAZ Date: 2020-06-06 07:31 Normal [facility] XR FLUORO < 1 HRon XR [...] by: NOY DONOVAN Date: 2020-05-30 15:24 Normal [facility] Vital Signs Date Time Vital Sign Value Performing Clinician Facility 09-13-2023 11:21-0400 Blood Pressure Location Yoils Boyd [facility] 09-13-2023 11:210400 Body temperature 97.88 [degF] Yolis Boyd [facility] 09-13-2023 11:21-0400 Diastolic blood pressure 85 mm[Hg] Yolis Sanchezer [facility] 09-13-2023 11:21-0400 Heart rate 65 /min Yolis Sanchezer [facility] 09-13-2023 11:21-0400 SaO2% (BldA) [Mass fraction] 97 % Yolis Boyd [facility] 09-13-2023 11:21-0400 Systolic blood pressure 135 mm[Hg] Yolis Sanchezer [facility] Encounters Encounter Date Encounter Type Care Provider Facility Start: 09-20-2023 End: 09-20-2023 ambulatory Layla Montalvo Facility:[facility] Start: 09-20-2023 End: 09-20-2023 Patient encounter procedure Layla Montalvo [facility] Start: 09-16-2023 End: 09-16-2023 ambulatory LAYLA MONTALVO Not Available Start: 09-13-2023 End: 09-13-2023 ambulatory Yolis Jasmyn Charlesdner Facility:[facility] Start: 09-13-2023 End: 09-13-2023 Patient encounter procedure Yolis C Danieler [facility] Start: 07-27-2023 End: 07-27-2023 ambulatory SELF REFERRAL Facility:[facility] Start: 05-24-2023 End: 05-24-2023 ambulatory GRIS MOURA Not Available Start: 06-06-2020 End: 06-06-[address] JESUS PORTILLO Facility:[facility]1 Start: 05-30-2020 End: 05-30-[address] JESUS PORTILLO Facility:[facility] Start: 05-29-[address] JESUS PORTILLO [facility] ity:H1 Procedures Date Procedure Procedure Detail Performing Clinician Start: 11-08-2004 Major left facial reconstruction Yolis Boyd Colonoscopy Yolis Sancheze r oopherectomy 1 Yolis Santacruz ner Comment on above: right 1999 [employer] operation, high gastric bypass Yolis Boyd Comment on above: 2001 Tonsillectomy and adenoidectomy Yolis Boyd Immunizations Immunization Date Immunization Notes Care Provider Fa cility NEGATED: Highlighted row has not occurred!05-29-2020 influenza virus vaccine, unspecified formulation Yolis Boyd [facility] Payers Date Payer Category Payer Medicare [id number] 2023 Medicaid [id number] 2022 Unknown [id number] 1959 Unknown [id number] 1959 Unknown 1960 Unknown [id number] 2.16.84 [id number] 1960 Unknown [id number] 2.16.84 [id number] 1958 Unknown [id number] 2.16.84 [id number] 1958 Unknown [id number] 2.16.84 [id number] 1958 Unknown [id number] 2.16.84 [id number] 1958 Unknown [id number] 2.16.8 [id number] 1958 Unknown [id number] 2.16.8 [id number] 1958 Unknown [id number] 2.16.8 [id number] 1960 Unknown [id number] 2.16.8 [id number] Social History Date Type Detail Facility Start: 09-13-2023 Tobacco smoking status Never s moked tobacco (finding) [facility] status [facility] Sex Assigned At Female [facility] Functional Status Date Assessment Result Facility 09-13-2023 Functional Status N/A [facility] Discharge instructions 09-13-2023 Note [...] ?Hypothyroidism. ?Polycystic ovarian syndrome (PCOS). ?Binge-eating disorder. ?[place] syndrome. Taking certain medicines, such as steroids, [...] food choices, such as grocery stores and [employer]. What are the signs or symptoms? The [...] and how much exercise you get. Take cwpr-vsm-pcxlptm and prescription medicines only as told by [...] provider. Document Revised: 09/02/2021 Document Reviewed: 09/02/2021 [employer] Patient Education 2022 [employer] 09/13/2023 19:23:59 BMI for Adults BMI for [...] numbers. This can be done either in [place]ammarinese ([place] or metric measurements. Note that charts and online BMI calculators are available to help you find your BMI quickly and easily without having to do these calculations yourself. To calculate your BMI in Sammarinese ([place] measurements: 1.Measure your weight in pounds [...] Centers for Disease Control and Prevention: www.cdc.gov Citizen Of [place] Heart Association: www.heart.org National Heart, Lung, and Blood [place]: www.nhlbi.nih.gov Summary Body mass index (BMI) is a number that is calculated from a person's weight and height. BMI may help estimate how much of a person's weight is composed of fat. BMI can help identify those who may be at higher risk for certain medical problems. BMI can be measured using Sammarinese measurements or metric measurements. BMI charts are used to identify whether you are underweight, normal weight, overweight, or obese. This information is not intended to replace advice given to you by your health care provider. Make sure you discuss any questions you have with your health care provider. Document Revised: 10/18/2019 Document Reviewed: 08/25/2019 [employer] Patient Education 2022 [employer] 09/13/2023 19:23:54 Sciatica, Xxdi-ye-Egpr Sciatica Sciatica is pain, weakness, tingling, or [...] Follow these instructions at home: Medicines Take smuq-sqy-fzxprog and prescription medicines only as told by [...] provider. Document Revised: 05/04/2022 Document Reviewed: 05/04/2022 [employer] Patient Education 2022 [employer]. Follow Up Care 09/13/2023 10:59:43 With:Layla Montalvo MD Address: [address] [place] [address]- When: Unknown [facility] Clinical Note 09-13-2023 Note Date [...] food choices, such as grocery stores and [employer]. What are the signs or symptoms? The [...] alcohol: ? Limit (more content not included)... [facility] Clinical Note 05-30-2020 Note Date & Type Note Facility 05-30-2020 Note OPERATIVE NOTE OPERATION DATE: 05-30-20 ANESTHETIC:General by LMA. PREOPERATIVE DIAGNOSIS: Right ureteral calculus. POSTOPERATIVE DIAGNOSIS:Same. PROCEDURE NAME: 1. Cystoscopy. 2. Right rigid ureteral dilation. 3. Right ureteroscopy. 4. Holmium laser lithotripsy of two ureteral calculi. 5. Stone basket extraction of two ureteral calculi. 6. Placement of a 7 Mauritian variable length right ureteral stent. COMPLICATIONS: None. [...] fashion. I started by passing a 22 Mauritian Olympus cystoscope per urethra and into the [...] I then used an 8 and 10 swiss rigid dilator to dilate the distal right [...] the bladder. I then slid a 7 swiss variable length right ureteral stent over the wire up into the kidney and then removed the wire. There were good curls in the kidney and in the bladder. I then used the [employer] evacuator to get all the stone pieces out of the bladder and these were sent for stone analysis. The bladder was then drained of it's contents and the scope was then removed. The anesthetic was then reversed. She was then transferred to [facility] and wheeled to the Recovery Room in stable condition. She tolerated it well. There were no complications. She will be discharged to home later today with a script for Keflex 500 mg daily #21 and oxybutynin ER 10 mg daily #21. We will bring her back in a week or two for right ESWL and stent removal. [facility] Signed and Approved by: DR JESUS PORTILLO . 06/06/2020 11:38:00 [facility] Evaluation + Plan note Note Date & Type Note Facility Evaluation + Plan note No data available for this section [facility] Discharge instructions Note Date & Type Note Facility Hospital Discharge instructions No data available for this section [facility] Progress note Note Date & Type Note Facility Progress note No data available for this section [facility] Summary Purpose Family History No Family History Records Found No data available for this section No data available for this section No Family History Records Found No data [...] section and content) DATE CREATED AUTHOR 06/15/2020 [facility] DATE CREATED AUTHOR AUTHOR'S ORGANIZ ATION 09/18/2023 [facility] EPIC DATE CREATED AUTHOR AUTHOR'S ORGANIZ ATION 09/21/2023 [facility] DATE CREATED AUTHOR AUTHOR'S ORGANIZ ATION 09/26/2023 [facility] Patient Care team informatio n (unrecognized section and content) Personnel Name: Layla Montalvo MD Address: Address: [address] [place], [address] Personnel Name: Layla Montalvo MD Address: Address: [address] [place], [address] Personnel Name: Layla Montalvo MD Address: Address: [address] [place] FOR RECORDS PERTAINING TO PATIENTS [...] BE BASED ON THE PRIMARY CLINICAL RECORDS. [facility] [employer] [facility]. provides no warranty or guarantee of the accuracy or completeness of information in this document.
[2023-10-05 11:31] VITALS: BMI 27.4
--- NOTE | 2023-10-05 11:38 | P.DS_ITS ---
Discharge Plan Discharge Disposition: Home, Self-Care Outpatient Diagnostics: VC Endovenous Ablation 1VeinRT (Routine) Timeframe: 2 Weeks Facility: [facility] - Location: Vein Center Ordered By: Jericho Aviles Follow Up Appointments: 10/19/23 Plan of Treatment: EVLT of right leg SSV. Print Language: Lebanese Discharge Date/Time: 10/05/23 11:38
== END 2023-10-05 11:38 | disposition home or self-care (01) ==
LOC: VC 10:57
PROVIDERS: PCP Radiology Diagnostic Radiology; Visit Provider Radiology Diagnostic Radiology
DX: I80.02 Phlebitis and thrombophlebitis of superficial vessels of left lower extremity (principal)
CPT/HCPCS: 93971; G0463

== ENCOUNTER 2023-10-19 12:54 | Outpatient (OUT) | payer MEDICARE, SELFPAY ==
--- NOTE | 2023-10-19 08:01 | VEINCLINIC_ITS ---
Vital Signs 10/19/23 13:16 10/19/23 13:21 Height 5 ft 6 in Weight 77.467 kg BP 124/72 BP Location Left Brachial BP Position Sitting BP Cuff Size Adult BP Source Manual Cuff Respiration 16 Pulse 75 Pulse Source Monitor Pulse Oximetry (%) 95 Oxygen Delivery Method Room Air Comment The patient's blood pressure is elevated. Varicose Veins Patient in this day for EVLT of right SSV. Julien Santana MD personally performed the services described in this documentation, as scribed by Silvana Francois RN in my presence and it is both accurate and complete. Silvana Santana RN, am scribing for, and in the presence of, Dr. Julien Vega and in the presence of the patient. medial thigh: bilateral, knee: bilateral, calf: bilateral, ankle: bilateral and zepeda: bilateral dull, sharp and intermittent 8 2 months Worsened in recent months: Yes standing bed rest, elevating extremities and compression stockings Reports muscle spasms of leg, heaviness, edema and leg edema History of lower extremity trauma: No Superficial thrombophlebitis: No Family history of varicose veins: unknown Has patient had previous lower extremity venous surgery: No Patient has previously received the following treatment(s) for lower extremity varicose veins: Reports sclerotherapy Does patient have a history of : yes Does patient intend to have future pregnancies: no Has patient had lower extremity venous scan with relux testing: Yes Support hose used: Yes Problems walking or doing physical activity: Yes How does it affect you: Pain and heaviness when walking Do you walk much: Yes Do you stand much: Yes Medication compliance: good Review of Systems ROS Narrative Julien Santana MD personally performed the services described in this documentation, as scribed by Silvana Francois RN in my presence and it is both accurate and complete. Silvana Santana RN, am scribing for, and in the presence of, Dr. Julien Vega and in the presence of the patient. Status of ROS 10 or more systems reviewed and unremark able except as noted in history and below Cardiovascular Reports: edema, swelling of feet/ankles and leg pain with exertion Musculoskeletal Reports: extremity pain, extremity swelling, limited range of motion, joint swelling, muscle cramps and muscle weakness Integumentary/Breast Reports: itching, redness, skin pain, skin tenderness, skin swelling, new lesion, non-healing lesion and changes in skin color Neurological Reports: numbness in extremities and weakness in extremities PFSH [facility] Medical History (Updated 08/24/23 @ 15:05 by Stefan Ross) Phlebitis and thrombophlebitis of superficial vessels of right lower extremity ?I80.01 - Phlebitis and thrombophlebitis of superficial vessels of right lower extremity (ICD-10) Phlebitis and thrombophlebitis of superficial vessels of left lower extremity ?I80.02 - Phlebitis and thrombophlebitis of superficial vessels of left lower extremity (ICD-10) Varicose veins of bilateral lower extremities with pain ?I83.813 - Varicose veins of bilateral lower extremities with pain (ICD-10) Kidney stone ?N20.0 - Calculus of kidney (ICD-10) Insomnia ?G47.00 - Insomnia, unspecified (ICD-10) Hypotension ?I95.9 - Hypotension, unspecified (ICD-10) Hypertension ?I10 - Essential (primary) hypertension (ICD-10) Surgical History (Updated 08/10/23 @ 15:02 by Sharon Castillo) Status post ablation of incompetent vein using laser ?Z98.890 - Other specified postprocedural states (ICD-10) History of bilateral oophorectomy ?Z90.722 - Acquired absence of ovaries, bilateral (ICD-10) History of plastic surgery ?Z98.890 - Other specified postprocedural states (ICD-10) History of gastric bypass ?Z98.84 - Bariatric surgery status (ICD-10) Family History (Updated 08/10/23 @ 15:02 by Sharon Castillo) Other Family history not known due to adoption Social History (Updated 08/10/23 @ 15:03 by Sharon Castillo) Within the past year, how often did you have a drink containing alcohol: 2-4 times a month Smoking status: Never smoker Non-prescribed substance use: denies use Meds Home Medications and Allergies Home Medications ?Medication ?Instructions ?Recorded ?Confirmed ?Type aspirin 81 mg capsule 81 mg PO DAILY 08/10/23 08/10/23 History carvedilol 6.25 mg tablet (Coreg) 6.25 mg PO BID 08/10/23 08/10/23 History cholecalciferol (vitamin D3) 50 50 mcg PO DAILY 08/10/23 08/10/23 History mcg (2,000 unit) capsule (D3-2000) levothyroxine 100 mcg tablet 100 mcg PO DAILY 08/10/23 08/10/23 History (Euthyrox) trazodone 50 mg tablet 25 mg PO DAILY 08/10/23 08/10/23 History triamterene 37.5 1 cap PO DAILY 08/10/23 08/10/23 History mg-hydrochlorothiazide 25 mg capsule Allergies Allergy/AdvReac Type Severity Reaction Status Date / Time No Known Drug Allergies Allergy Verified 07/30/23 17:01 Exam Narrative Exam Narrative: IJulien MD personally performed the services described in this documentation, as scribed by Silvana Francois RN in my presence and it is both accurate and complete. ISilvana RN, am scribing for, and in the presence of, Dr. Julien Vega and in the presence of the patient. Constitutional Documenting provider has reviewed patient's vital signs: yes Common normals: oriented x3 Lymph Lymphatic: no lymphedema noted Cardio Common normals: regular rate Rate: regular rate Peripheral pulses: posterior tibial pulses present and dorsalis pedis pulses present Extremity Common normals: normal capillary refill General: calf tenderness and edema Right lower extremity: upper leg and lower leg Left lower extremity: upper leg and lower leg Neuro Common normals: oriented x3 Assessment and Plan Assessment and Plan (1) Varicose veins of bilateral lower extremities with pain: Plan Plan of care: Risks and benefits of the procedure were discussed at length and informed written consent was obtained.? Time-out completed for verification of correct patient, procedure and site.? Staff present during time-out: Silvana Francois RN,? Jul[facility] Vega MD, [facility]. Time Out Time___1343____ Patient prepped and procedure performed in usual sterile fashion. Risk of injury related to use of Diode laser and/or laser devices? __AG___ ? Serial number of laser used :? [id number] Control panel self test performed, electrical cords in good condition, floor is dry, basin of water available, fire extinguisher in close proximity_AG__ Polycarbonate goggles available and Laser warning signs outside of doors___AG___ Eye protection provided to patient and staff in room_AG___ Use of laser retardant drapes and dull blackened instruments as directed__AG___ Use of nonflammable prep solutions and use of saline soaked sponges to protect tissues as indicated _AG___ Length ___36 cm Laser operated by ___Dr. Vega Physician verbal confirmation laser locked in place__AG__ Laser start time (date and time) _10/19/23@1354 Laser stop time(date and time) __10/19/23@1400 [place] _8.0___ Average laser use ___1792____Joules Average laser use___224 seconds Pulse continuous ___AG_? Pulse intermittent ___ Amount of Tumescent used ___150___ Evaluated patient for signs and symptoms of electrical injury __AG___ ? Skin clear at insertion site __AG___ Patient tolerated procedure well.? Right leg Coban dressing applied to access site.? Applied Right thigh high leg compression stocking. Will return on 10/26/23 for Right leg limited venous ultrasound and exam.
--- NOTE | 2023-10-19 08:20 | W.VEIN ---
Discharge Plan Discharge Disposition: Home, Self-Care Outpatient Diagnostics: VC Facility EST LMTD (Routine) Timeframe: 2 Weeks Facility: [facility] - Location: Vein Center Ordered By: Julien Vega VC EXT Venous RT LMTD (Routine) Timeframe: 2 Weeks Facility: [facility] - Location: Vein Center Ordered By: Julien Vega Follow Up Appointments: 10/26/23 Print Language: Mongolian Discharge Date/Time: 10/19/23 14:13
--- NOTE | 2023-10-19 13:02 | VEIN_ITS ---
[address] [address] Patient Name: NEO ZHENG MRN: [id number] date: 1960 Sex: F Assigned Patient Location: Current Patient Location: Accession/Order Number: [id number] Exam Date: 10/19/2023 13:02 Report Date: 10/19/2023 16:07 At the request of: MANN DIAZ Procedure: VC Endovenous Ablation 1VeinRT EXAMINATION: VC Endovenous Ablation 1VeinRT HISTORY: I83.813 - Varicose veins of bilateral lower extremities w... The risks and benefits of the procedure had been previously discussed, and were rediscussed at length. Informed written consent was obtained. Silvana Francois RN and Sharon Castillo RDMS, RVT assisted. Time out procedure was performed. The right lower extremity was prepared and draped in the usual sterile fashion to allow knee flexion in the sterile field. Duplex ultrasound probe was draped in a sterile cover, sterile transmission gel was used. Venous mapping was performed with the areas of dilation and large tributaries marked. The total length was 36 cm from the entry 3 cm above the calf to 3 cm below the intramuscular insertion leading to thigh extension. The diameter of the right small saphenous vein ranged from 6.5 mm. A 30 gauge needle and 1% buffered lidocaine was used to anesthetize the entry site. A 4 mm incision was made with a scalpel and the saphenous vein was entered percutaneously under direct ultrasound guidance with a micropuncture set, a single stick was successful in gaining access. A micro-guide wire was inserted and the needle removed. A micro-set including a dilator was inserted over the microwire and the needle and dilator were removed. A guide wire was inserted through the micro-set and guided through the saphenous vein to the saphenofemoral junction. The dilator was removed and an introducer sheath was inserted over the wire until the end of the sheath entered the saphenofemoral junction. The dilator and wire were removed and the 600 micron fiber was introduced and placed and positioned so that it extended beyond the sheath and was 3 cm distal to the saphenofemoral or saphenopopliteal junction. Final position of the fiber was determined by ultrasound guidance and duplex imaging. Tumescent anesthetic was delivered by ultrasound guidance. 150 cc of fluid was delivered along the entire course of the saphenous vein. The solution consisted of 1000 cc of normal saline with 40 mL of 1% lidocaine and 20 mL of sodium bicarbonate. A final positioning check was made. The energy source was turned on by means of the foot pedal and the fiber and sheath were withdrawn. The total number of Joules delivered was 1792. The laser was active for 2024 seconds under continuous pulse, average laser use of 8 J. Laser start time: 1:54 PM Laser stop time: 2:01 PM Date: 10/19/2023. A duplex ultrasound revealed compressibility and flow at the saphenofemoral junction immediately after the procedure. Hemostasis at the access site was achieved. The skin incision of the saphenous vein was closed with a 4 x 4. A compression stocking was applied. Postop instructions were given. A follow up appointment was recommended and scheduled. The patient tolerated the procedure well. Electronically authenticated by: NOY DONOVAN Date: 10/19/2023 16:07
[2023-10-19 13:16] VITALS: BP 124/72; PULSE 75; O2SAT 95
[2023-10-19] MEDS: LIDOCAINE HCL 1% 100 MG/10 ML MDV INJ (14:15)
[2023-10-19] MEDS: 0.9 % SODIUM CHLORIDE 500 ML, LIDOCAINE HCL 20 ML, SODIUM BICARBONATE 10 MEQ INJ (14:15)
== END 2023-10-19 14:13 | disposition home or self-care (01) ==
LOC: VC 12:54
PROVIDERS: PCP Radiology Diagnostic Radiology; Visit Provider Radiology Diagnostic Radiology
DX: I83.813 Varicose veins of bilateral lower extremities with pain (principal)
CPT/HCPCS: 36478

== ENCOUNTER 2023-10-26 12:53 | Outpatient (OUT) | payer MEDICARE, SELFPAY ==
[2023-10-26 09:35] VITALS: BMI 27.4
--- NOTE | 2023-10-26 09:35 | V.VEINS.HP ---
Vital Signs 10/26/23 09:35 Height 5 ft 6 in Weight 77 kg BMI 27.4 Varicose Veins Patient in this day for follow up ultrasound post EVLT of right SSV. Jericho Santana MD personally performed the services described in this documentation, as scribed by Sharon Castillo RVT, RDMS in my presence and it is both accurate and complete. Sharon Santana RVT, RDMS, am scribing for, and in the presence of, Dr. Jericho Aviles and in the presence of the patient. medial thigh: bilateral, knee: bilateral, calf: bilateral, ankle: bilateral and zepeda: bilateral dull, sharp and intermittent 8 2 months Worsened in recent months: Yes standing bed rest, elevating extremities and compression stockings Reports muscle spasms of leg, heaviness, edema and leg edema History of lower extremity trauma: No Superficial thrombophlebitis: No Family history of varicose veins: unknown Has patient had previous lower extremity venous surgery: No Patient has previously received the following treatment(s) for lower extremity varicose veins: Reports sclerotherapy Does patient have a history of : yes Does patient intend to have future pregnancies: no Has patient had lower extremity venous scan with relux testing: Yes Support hose used: Yes Problems walking or doing physical activity: Yes How does it affect you: Pain and heaviness when walking Do you walk much: Yes Do you stand much: Yes Medication compliance: good Review of Systems ROS Narrative Jericho Santana MD personally performed the services described in this documentation, as scribed by Sharon Castillo RVT, RDMS in my presence and it is both accurate and complete. Sharon Santana RVT, RDMS, am scribing for, and in the presence of, Dr. Jericho Aviles and in the presence of the patient. Status of ROS 10 or more systems reviewed and unremarkable except as noted in history and below Cardiovascular Reports: edema, swelling of feet/ankles and leg pain with exertion Musculoskeletal Reports: extremity pain, extremity swelling, limited range of motion, joint swelling, muscle cramps and muscle weakness Integumentary/Breast Reports: itching, redness, skin pain, skin tenderness, skin swelling, new lesion, non-healing lesion and changes in skin color Neurological Reports: numbness in extremities and weakness in extremities [facility] Medical History (Updated 08/24/23 @ 15:05 by Stefan Ross) Phlebitis and thrombophlebitis of superficial vessels of right lower extremity ?I80.01 - Phlebitis and thrombophlebitis of superficial vessels of right lower extremity (ICD-10) Phlebitis and thrombophlebitis of superficial vessels of left lower extremity ?I80.02 - Phlebitis and thrombophlebitis of superficial vessels of left lower extremity (ICD-10) Varicose veins of bilateral lower extremities with pain ?I83.813 - Varicose veins of bilateral lower extremities with pain (ICD-10) Kidney stone ?N20.0 - Calculus of kidney (ICD-10) Insomnia ?G47.00 - Insomnia, unspecified (ICD-10) Hypotension ?I95.9 - Hypotension, unspecified (ICD-10) Hypertension ?I10 - Essential (primary) hypertension (ICD-10) Surgical History (Updated 08/10/23 @ 15:02 by Sharon Castillo) Status post ablation of incompetent vein using laser ?Z98.890 - Other specified postprocedural states (ICD-10) History of bilateral oophorectomy ?Z90.722 - Acquired absence of ovaries, bilateral (ICD-10) History of plastic surgery ?Z98.890 - Other specified postprocedural states (ICD-10) History of gastric bypass ?Z98.84 - Bariatric surgery status (ICD-10) Family History (Updated 08/10/23 @ 15:02 by Sharon Castillo) Other Family history not known due to adoption Social History (Updated 08/10/23 @ 15:03 by Sharon Castillo) Within the past year, how often did you have a drink containing alcohol: 2-4 times a month Smoking status: Never smoker Non-prescribed substance use: denies use Meds Home Medications and Allergies Home Medications ?Medication ?Instructions ?Recorded ?Confirmed ?Type aspirin 81 mg capsule 81 mg PO DAILY 08/10/23 08/10/23 History carvedilol 6.25 mg tablet (Coreg) 6.25 mg PO BID 08/10/23 08/10/23 History cholecalciferol (vitamin D3) 50 50 mcg PO DAILY 08/10/23 08/10/23 History mcg (2,000 unit) capsule (D3-1999) levothyroxine 100 mcg tablet 100 mcg PO DAILY 08/10/23 08/10/23 History (Euthyrox) trazodone 50 mg tablet 25 mg PO DAILY 08/10/23 08/10/23 History triamterene 37.5 1 cap PO DAILY 08/10/23 08/10/23 History mg-hydrochlorothiazide 25 mg capsule Allergies Allergy/AdvReac Type Severity Reaction Status Date / Time No Known Drug Allergies Allergy Verified 07/30/23 17:01 Exam Narrative Exam Narrative: Jericho Santana MD personally performed the services described in this documentation, as scribed by Sharon Castillo RVT, RDMS in my presence and it is both accurate and complete. Sharon Santana RVT, RDMS, am scribing for, and in the presence of, Dr. Jericho Aviles and in the presence of the patient. Constitutional Documenting provider has reviewed patient's vital signs: yes Common normals: oriented x3 Lymph Lymphatic: no lymphedema noted Cardio Common normals: regular rate Rate: regular rate Peripheral pulses: posterior tibial pulses present and dorsalis pedis pulses present Extremity Common normals: normal capillary refill General: calf tenderness and edema Right lower extremity: upper leg and lower leg Left lower extremity: upper leg and lower leg Neuro Common normals: oriented x3 Results Imaging Venous US: Radiologist's impression: The ultrasound demonstrates Heat induced thrombus visualized arising at distal thigh and extending through mid calf. Assessment and Plan Assessment and Plan (1) Phlebitis and thrombophlebitis of superficial vessels of right lower extremity: (2) Varicose veins of bilateral lower extremities with pain: Plan Patient in today for follow up ultrasound of lower extremity following treatment of EVLT of right leg SSV completed on 10/19/23. Jericho Santana MD personally performed the services described in this documentation, as scribed by Sharon Castillo RVT, RDMS in my presence and it is both accurate and complete. Sharon Santana RVT, RDMS, am scribing for, and in the presence of, Dr. Jericho Aviles and in the presence of the patient.
--- NOTE | 2023-10-26 09:38 | P.DS_ITS ---
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
--- NOTE | 2023-10-26 09:38 | W.VEIN ---
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
--- OUTSIDE RECORDS SUMMARY | 2023-10-26 13:00 | XMS_ITS | CCD ---
Author Organization [facility] Care Team Providers Care Boot Turner Name Role Phone LINDSEY, DR LEE Admitting [...] Attending Unavailable Layla Montalvo Primary Care Physician [phone] GRIS MOURA Attending Unavailable LAYLA MONTALVO Attending Unavailable Layla Montalvo Admitting Unavailable Layla Montalvo Attending Unavailable REFERRAL, SELF Attending Unavailable Yolis Boyd Attending Unavailable Yolis Boyd Admitting Unavailable Yolis Boyd Attending Unavailable MD Layla Montalvo Attending Unavailable MD Layla Montalvo Admitting Unavailable Allergies Allergy Classification Reported Allergen(s) Allergy Type Date of Onset Reaction(s) Facility Opioid Agonists (1 source) Morphine Drug Allergy 1 [facility] Repository (4 sources) Morphine; Translations: [morphine] Drug Allergy severe vomitting [facility] Medications Current Medications Medication Drug Class(es) Dates Sig (Normalized) Sig (Original) acetaminophen 325 mg / HYDROcodone bitartrate 5 mg oral tablet (3 sources) Opioid Agonist Start: 1 [place] 325 mg-5 mg oral tablet 1 tab(s), [...] day(s), # 30 tab(s), Refills(s) 0, Pharmacy: [facility], 167, cm, 09/13/23 11:24:00 EDT, [...] TID, # 10 tab(s), Refills(s) 0, Pharmacy: [facility]/pharmacy #[id number], 167, cm, 05/24/20 5:39:00 EDT, Height/Length [...] days, # 4 cap(s), Refills(s) 0, Pharmacy: [facility]/pharmacy #[id number], 167, cm, 05/24/20 5:39:00 EDT, Height/Length Dosing, 93, kg, 05/24/20 5:39:00 EDT, Weight Dosing Start Date: 05/24/20 Status: Ordered topiramate 25 mg oral tablet (6 sources) Start: 6 take 1 tablet by mouth twice daily Topamax 25 mg Tab 25 mg = 1 tab(s), Oral, BID, # 60 tab(s), Refills(s) 0, Pharmacy: [facility]/pharmacy #[id number] Start Date: 09/17/15 Status: Ordered traMADol [...] day, # 14 tab(s), Refills(s) 0, Pharmacy: [facility]/pharmacy #[id number], 167, cm, 05/24/20 5:39:00 EDT, Height/Length [...] 05-29-2020 Chronic Other aftercare (1 source) Other prison (current) drug therapy; 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] Onset: 06-13-2020 Episodic Other aftercare (1 source) shelter (current) use of aspirin; Translations: [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] Onset: 06-06-2020 Episodic [...] Basophils/100 WBC (Bld) 0.8 % Normal 0.0-2.0 [facility] Comment on above: Performed By: #### 2 [id number] #### [facility] [address] [place] [address] Basophils/Leukocytes Auto (Bld) [Pure # fraction] 0.1 E9/L Normal 0.0-0.2 [facility] Comment on above: Performed By: #### 2 [id number] #### [facility] [address] [place] [address] Eosinophils (Bld) [#/Vol] 0.2 E9/L Normal 0.0-0.5 [facility] Comment on above: Performed By: #### 2 [id number] #### [facility] [address] [place] [address] Eosinophils/100 WBC (Bld) 1.9 % Normal 0.0-8.0 [facility] Comment on above: Performed By: #### 2 [id number] #### [facility] [address] [place] [address]8467 Erythrocyte distribution width (RBC) [Ratio] 14.2 % Normal 10.9-14.2 [facility] Comment on above: Performed By: #### 2 [id number] #### [facility] [address] [place] [address] Hematocrit (Bld) [Volume fraction] 36.2 % Normal 34.0-46.0 [facility] Comment on above: Performed By: #### 2 [id number] #### [facility] [address] [place] [address] 89885 Hemoglobin (Bld) [Mass/Vol] 12.5 g/dL Normal 12.0-16.0 [facility] Comment on above: Performed By: #### 2 [id number] #### [facility] [address] [place] [address] Lymphocytes (Bld) [#/Vol] 3.0 E9/L Normal 1.0-4.0 [facility] Comment on above: Performed By: #### 2 [id number] #### [facility] [address] [place] [address] Lymphocytes/100 WBC (Bld) 38.3 % Normal 14.0-50.0 [facility] Comment on above: Performed By: #### 2 [id number] #### [facility] [address] [place] [address] 36997 MCH (RBC) [Entitic mass] 32.9 pg Normal 27.0-34.0 [facility] Comment on above: Performed By: #### 2 [id number] #### [facility] [address] [place] [address] MCHC (RBC) [Mass/Vol] 34.6 g/dL Normal 31.4-36.0 [facility] Comment on above: Performed By: #### 2 [id number] #### [facility] [address] [place] [address] MCV (RBC) [Entitic vol] 95.2 fL Normal 80.0-100.0 [facility] Comment on above: Performed By: #### 2 [id number] #### [facility] [address] [place] [address] Monocytes (Bld) [#/Vol] 0.9 E9/L Normal 0.2-1.0 [facility] Comment on above: Performed By: #### 2 [id number] #### [facility] [address] [place] [address] Neutrophils (Bld) [#/Vol] 3.8 E9/L Normal 2.0-7.5 [facility] Comment on above: Performed By: #### 2 [id number] #### [facility] [address] [place] [address] Neutrophils/100 WBC (Bld) 47.3 % Normal 36.0-75.0 [facility] Comment on above: Performed By: #### 2 [id number] #### [facility] [address] [place] [address] Platelet 259.0 E9/L Normal 150.0-500.0 [facility] Comment on above: Performed By: #### 2 [id number] #### [facility] [address] [place] [address] Platelet mean volume (Bld) [Entitic vol] 8.4 fL Normal 6.4-10.8 [facility] Comment on above: Performed By: #### 2 [id number] #### [facility] [address] [place] [address] 28298 RBC (Bld) [#/Vol] 3.8 E12/L Low 4.3-5.9 [facility] Comment on above: Performed By: #### 2 [id number] #### [facility] [address] [place] [address] WBC corrected for nucl RBC Auto (Bld) [#/Vol] 7.9 E9/L Normal 4.0-11.0 [facility] Comment on above: Performed By: #### 2 [id number] #### [facility] [address] [place] [address] CHEMISTRYOrdered By: SYSTEM SYSTEM on 09-20-2023 Albumin [...] 09-20-2023 Albumin [Mass/Vol] 4.1 g/dL Normal 3.3-5.0 [facility] Comment on above: Performed By: #### 2 [id number] #### [facility] [address] [place] [address] Albumin/Globulin (S) [Mass conc ratio] 1.5 Normal 1.1-2.2 [facility] Comment on above: Performed By: #### 2 [id number] #### [facility] [address] [place] [address] ALP [Catalytic activity/Vol] 76 Int._Unit/L Normal 21-98 [facility] Comment on above: Performed By: #### 2 [id number] #### [facility] [address] [place] [address] ALT No additional P-5'-P [Catalytic activity/Vol] 22 Int._Unit/L Normal 6-46 [facility] Comment on above: Performed By: #### 2 [id number] #### [facility] [address] [place] [address] Anion gap [Moles/Vol] 11 mmol/L Normal 6-16 [facility] Comment on above: Performed By: #### 2 [id number] #### [facility] [address] [place] [address] AST [Catalytic activity/Vol] 19 Int._Unit/L Normal 5-43 [facility] Comment on above: Performed By: #### 2 [id number] #### [facility] [address] [place] [address] Bilirubin [Mass/Vol] 0.4 mg/dL Normal 0.0-1.1 [facility] Comment on above: Performed By: #### 2 [id number] #### [facility] [address] [place] [address] Calcium [Mass/Vol] 9.4 mg/dL Normal 8.9-11.1 [facility] Comment on above: Performed By: #### 2 [id number] #### [facility] [address] [place] [address] Chloride [Moles/Vol] 104 mmol/L Normal 101-111 [facility] Comment on above: Performed By: #### 2 [id number] #### [facility] [address] [place] [address] CO2 [Moles/Vol] 27 mmol/L Normal 21-31 [facility] Comment on above: Performed By: #### 2 [id number] #### [facility] [address] [place] [address] Creatinine [Mass/Vol] 1.0 mg/dL Normal 0.5-1.3 [facility] Comment on above: Performed By: #### 2 [id number] #### [facility] [address] [place] [address] Globulin (S) [Mass/Vol] 2.7 g/dL Normal 1.4-4.0 [facility] Comment on above: Performed By: #### 2 [id number] #### [facility] [address] [facility] [place] [address] Glucose [Mass/Vol] 88 mg/dL Normal 55-199 [facility] Comment on above: Performed By: #### 2 [id number] #### [facility] [address] [place] [address] Potassium [Moles/Vol] 4.1 mmol/L Normal 3.5-5.3 [facility] Comment on above: Performed By: #### 2 [id number] #### [facility] [address] [place] [address] Protein [Mass/Vol] 6.8 g/dL Normal 6.0-7.8 [facility] Comment on above: Performed By: #### 2 [id number] #### [facility] [address] [place] [address] Sodium [Moles/Vol] 138 mmol/L Normal 135-145 [facility] Comment on above: Performed By: #### 2 [id number] #### [facility] [address] [place] [address] Urea nitrogen [Mass/Vol] 25 mg/dL High 5-21 [facility] Comment on above: Performed By: #### 2 [id number] #### [facility] [address] [place] [address] Urea nitrogen/Creatinine [Mass ratio] 25 No Units High 10-20 [facility] Comment on above: Performed By: #### 2 [id number] #### [facility] [address] [place] [address] HEMATOLOGYOrdered By: SYSTEM SYSTEM on 09-20-2023 Basophils/100 [...] 09-20-2023 Cholesterol [Mass/Vol] 184 mg/dL Normal 120-200 [facility] Comment on above: Performed By: #### 2 [id number] #### [facility] [address] [place] [address] Cholesterol in HDL [Mass/Vol] 71 mg/dL Invalid Interpretation Code [facility] Comment on above: Result Comment: '>= 60 LOW RISK' '<= 40 HIGH RISK' Performed By: #### 2 [id number] #### [facility] [address] [place] [address] Cholesterol in LDL [Mass/Vol] 92 mg/dL Normal <=129 [facility] Comment on above: Performed By: #### 2 [id number] #### [facility] [address] [place] [address] Cholesterol in VLDL [Mass/Vol] 31 mg/dL Normal 7-40 [facility] Comment on above: Performed By: #### 2 [id number] #### [facility] [address] [place] [address] Triglyceride [Mass/Vol] 153 mg/dL High <=149 [facility] Comment on above: Performed By: #### 2 [id number] #### [facility] [address] [place] [address] TSH With T4fr Reflexon 09-19 TSH Qn 1.88 m[IU]/L Normal 0.34-5.60 [facility] Comment on above: Performed By: #### 1 [id number] #### [facility] [address] [place] [address] eGFRon 09-20-2023 eGFR 62 mL/min/1.73 m2 Normal >=59 [facility] Comment on above: Order Comment: Order added by Discern Expert. Performed By: #### 1 [id number] #### [facility] [address] [place] [address] Ambulatory Visit Summaryon 0 09-13-2023 Ambulatory Visit Summary Ambulatory Visit Summary NEO ZHENG :1960 Visit Date:09/13/2023 Ambulatory Visit Instructions Your Diagnosis Sciatic pain Left hip pain BMI 33.0-33.9,adult Your Care Team Attending Physician - Deb GALVAN, Leana Primary Care Physician - Katia PELAYO, Layla Narayan This Is Your Medications List acetaminophen-hydroc odone (Escanaba 325 mg-5 mg oral tablet) aspirin (aspirin [...] Sciatic pain Duration: 10 Days Pickup at [facility] 1985 Unchanged acetaminophen-hydroc odone (Escanaba 325 mg-5 mg oral tablet) 1 Tablets [...] Once a day (at bedtime) Pharmacy Information [facility]: [address] [place] [id number] [phone] Allergies morphine (severe vomitting) Problems Ongoing - [...] for choosing us for your care. Patricio [facility] Family Medicine Office/Clini c Noteon 09-13-2023 Family [...] with voice recognition software. Occasional wrong-word or ?labjn-s-dbse? substitutions may have occurred due to the [...] tenderness at the the area of the ykby-mfb-wywdzp joint and has pain with external rotation of the left hip. States sometimes her back also hurts. She has been using anot-hfr-onpfjxf medications without much relief. Review of Systems [...] day(s), # 30 tab(s), Refills(s) 0, Pharmacy: [facility], 167, cm, 09/13/23 11:24:00 EDT, Height/Length Dosing, 96, kg, 09/13/23 11:24:00 EDT, Weight Dosing Follow-up With When Contact Information Katia PELAYO, Layla Narayan [address] [place] [address]- Additional Instructions: Patient Education Obesity, Adult BMI for Adults Sciatica, Vocp-tl-Hsev Problem List/Past Medical History Ongoing Acid reflux [...] lisinopril 10 (more content not included)... Normal [facility] Comment on above: Result Comment: Elec tronically [...] mGy = na DAP = na Normal [facility] CALCULI, URINARYon 1 2,8 Dihydroxyadenine Normal [facility] Comment on above: Performed By: #### C ALCULI #### [facility] [address] [place] [address] Cristi Bina Ammonium Acid Urate Normal [facility] Comment on above: Performed By: #### C ALCULI #### [facility] [address] [place] [address] Cristi Bina Bilirubin Ql (U) Normal [facility] Comment on above: Performed By: #### C ALCULI #### [facility] [address] [place] [address] Cristi Bina Ca Oxalate Dihydrate 20 % Normal [facility] Comment on above: Performed By: #### C ALCULI #### [facility] [address] [place] [address] Cristi Bina CaHPO4 (Brushite) Normal [facility] Comment on above: Performed By: #### C ALCULI #### [facility] [address] [place] [address] Cristi Bina Calcium Bilirubinate Normal [facility] Comment on above: Performed By: #### C ALCULI #### [facility] [address] [place] [address] Cristi Bina Calcium Carbonate Normal [facility] Comment on above: Performed By: #### C ALCULI #### [facility] [address] [address] Cristi Bina Calcium Oxalate Monohydrate 80 % Normal [facility] Comment on above: Performed By: #### C ALCULI #### [facility] [address] [address] Cristi Bina Calcium Palmitate Normal [facility] Comment on above: Performed By: #### C ALCULI #### [facility] [address] [address] Cristi Bina Calcium Phosphate Normal [facility] Comment on above: Performed By: #### C ALCULI #### [facility] [address] [address] Cristi Bina Calcium Stearate Normal [facility] Comment on above: Performed By: #### C ALCULI #### [facility] [address] [address] Cristi Bina Carbonate Apatite Normal [facility] Comment on above: Performed By: #### C ALCULI #### [facility] [address] [address] Cristi Bina Cellular Material Normal [facility] Comment on above: Performed By: #### C ALCULI #### [facility] [address] [address] Cristi Bina Cholesterol Normal [facility] Comment on above: Performed By: #### C ALCULI #### [facility] [address] [address] Cristi Bina Color (U) Brown Normal [facility] Comment on above: Performed By: #### C ALCULI #### [facility] [address] [address] Cristi Bina Comment Normal [facility] Comment on above: Performed By: #### C ALCULI #### [facility] [address] [address] Cristi Bina Comment: Comment Normal [facility] Comment on above: Result Comment: Vijay graham questions regarding Calculi Analysis contact [facility] at: [phone]. Performed By: #### C ALCULI #### [facility] [address] [address] Cristi Bina Composition Comment Normal [facility] Comment on above: Result Comment: Perc entage (Represents the % composition) Performed By: #### C ALCJOSÉ MANUEL #### [facility] [address] [place] [address] Cristi Bina Cystine Normal [facility] Comment on above: Performed By: #### C ALCJOSÉ MANUEL #### [facility] [address] [address] Cristi Bina Disclaimer: Comment Normal [facility] Comment on above: Result Comment: This test was developed and its performance characteristics determined by [facility]. It has not been cleared or approved by the Food and Drug Administration. Performed By: #### C STEPHEN #### [facility] [address] [place] [address] Cristi Bina Dried Blood Normal [facility] Comment on above: Performed By: #### C ALCJOSÉ MANUEL #### [facility] [address] [place] [address] Cristi Bina Drug or Metabolite Normal [facility] Comment on above: Performed By: #### C ALCJOSÉ MANUEL #### [facility] [address] [place] [address] Cristi Bina Hydroxyapatite Normal [facility] Comment on above: Performed By: #### C ALCJOSÉ MANUEL #### [facility] [address] [place] [address] Cristi Bina Mg NH4 PO4 (Struvite) Normal [facility] Comment on above: Performed By: #### C ALCULI #### [facility] [address] [place] [address] Cristi Bian MgHPO4 (Newberyite) Normal [facility] Comment on above: Performed By: #### C ALCJOSÉ MANUEL #### [facility] [address] [place] [address] Cristi Bina Other component(s) Normal [facility] Comment on above: Performed By: #### C ALCJOSÉ MANUEL #### [facility] [address] [place] [address] Cristi Bina PDF . Normal [facility] Comment on above: Performed By: #### C ALCULI #### [facility] [address] [address] Cristi Bina Photo Comment Normal [facility] Comment on above: Result Comment: Phot ograph will follow under a separate cover Performed By: #### C ALCULI #### [facility] [address] [address] Cristi Bina Please note: Comment Normal [facility] Comment on above: Result Comment: Calc josé manuel report will follow via computer, mail or pulmonary disease specialist delivery. Performed By: #### C ALCULI #### [facility] [address] [address] Cristi Bina Size 4x6 [facility] Comment on above: Result Comment: Mult iple pieces received. Dimensions of the largest piece reported. Performed By: #### C ALCULI #### [facility] [address] [address] Cristi Bina Sodium Acid Urate Normal [facility] Comment on above: Performed By: #### C ALCULI #### [facility] [address] [address] Cristi Bina Source Comment [facility] Comment on above: Result Comment: Righ t Ureter Performed By: #### C ALCULI #### [facility] [address] [address] Cristi Bina Triamterene [facility] Comment on above: Performed By: #### C ALCULI #### [facility] [address] [address] Cristi Bina Uric Acid [facility] Comment on above: Performed By: #### C ALCULI #### [facility] [address] [address] Cristi Bina Uric Acid Dihydrate Normal [facility] Comment on above: Performed By: #### C ALCULI #### [facility] [address] [address] Cristi Bina Weight 122 mg Normal [facility] Comment on above: Performed By: #### C ALCULI #### [facility] [address] [place], [place] [address] Cristi Curran Xanthine Normal [facility] Comment on above: Performed By: #### C ALCULI #### [facility] [address] [place], [place] [address] Cristi Curran XR KUB 1 VIEWon 06-06-2020 [...] by: MANN DIAZ Date: 2020-06-06 07:31 Normal [facility] XR FLUORO < 1 HRon XR [...] by: NOY DONOVAN Date: 2020-05-30 15:24 Normal [facility] Vital Signs Date Time Vital Sign Value Performing Clinician Facility 09-13-2023 11:21-0400 Blood Pressure Location Yolis Boyd [facility] 09-13-2023 11:210400 Body temperature 97.88 [degF] Yolis Boyd [facility] 09-13-2023 11:21-0400 Diastolic blood pressure 85 mm[Hg] Yolis Sanchezer [facility] 09-13-2023 11:21-0400 Heart rate 65 /min Yolis Sanchezer [facility] 09-13-2023 11:21-0400 SaO2% (BldA) [Mass fraction] 97 % Yolis Boyd [facility] 09-13-2023 11:21-0400 Systolic blood pressure 135 mm[Hg] Yolis Sanchezer [facility] Encounters Encounter Date Encounter Type Care Provider Facility Start: 09-20-2023 End: 09-20-2023 ambulatory Layla Montalvo Facility:[facility] Start: 09-20-2023 End: 09-20-2023 Patient encounter procedure Layla Montalvo [facility] Start: 09-16-2023 End: 09-16-2023 ambulatory LAYLA MONTALVO Not Available Start: 09-13-2023 End: 09-13-2023 ambulatory Yolis Jasmyn Charlesdner Facility:[facility] Start: 09-13-2023 End: 09-13-2023 Patient encounter procedure Yolis C Danieler [facility] Start: 07-27-2023 End: 07-27-2023 ambulatory SELF REFERRAL Facility:[facility] Start: 05-24-2023 End: 05-24-2023 ambulatory GRIS MOURA Not Available Start: 06-06-2020 End: 06-06-[address] JESUS PORTILLO Facility:[facility] Start: 05-30-2020 End: 05-30-[address] JESUS PORTILLO Facility:[facility] Start: 05-29-[address] JESUS PORTILLO [facility] ity:[facility]1 Procedures Date Procedure Procedure Detail [...] unspecified formulation Yolis Boyd [facility] Payers Date Payer Category Payer Medicare [id number] 2023 Medicaid [id number] 2022 Unknown [id number] 1961 Unknown [id number] 1961 Unknown 1960 Unknown [id number] 2.16.84 [id number] 1960 Unknown [id number] 2.16.84 [id number] 1958 Unknown [id number] 2.16.84 [id number] 1958 Unknown [id number] 2.16.84 [id number] 1958 Unknown [id number] 2.16.84 [id number] 1958 Unknown [id number] 2.16.8 [id number] 1958 Unknown [id number] 2.16.8 [id number] 1958 Unknown [id number] 2.16.8 [id number] 1958 Unknown [id number] 2.16.8 [id number] Social History Date Type Detail Facility Start: 09-13-2023 Tobacco smoking status Never s moked tobacco (finding) [facility] At Female [facility] Functional Status Date Assessment Result Facility 09-13-2023 Functional Status N/A [facility] Discharge instructions 09-13-2023 [...] food choices, such as grocery stores and [employer]. What are the signs or symptoms? The [...] and how much exercise you get. Take fwra-uas-ftysznt and prescription medicines only as told by [...] provider. Document Revised: 09/02/2021 Document Reviewed: 09/02/2021 [employer] Patient Education 2022 [employer] 09/13/2023 19:23:59 BMI for Adults BMI [...] numbers. This can be done either in [place] or metric measurements. Note that charts and online BMI calculators are available to help you find your BMI quickly and easily without having to do these calculations yourself. To calculate your BMI in [place] measurements: 1.Measure your weight in pounds [...] Centers for Disease Control and Prevention: www.cdc.gov [place] [employer]: www.heart.org National Heart, Lung, and Blood [place]: www.nhlbi.nih.gov Summary Body mass index (BMI) is a number that is calculated from a person's weight and height. BMI may help estimate how much of a person's weight is composed of fat. BMI can help identify those who may be at higher risk for certain medical problems. BMI can be measured using [place] measurements or metric measurements. BMI charts are used to identify whether you are underweight, normal weight, overweight, or obese. This information is not intended to replace advice given to you by your health care provider. Make sure you discuss any questions you have with your health care provider. Document Revised: 10/18/2019 Document Reviewed: 08/25/2019 [employer] Patient Education 2022 [employer] 09/13/2023 19:23:54 Sciatica, Fwrz-be-Vqwv Sciatica Sciatica is pain, weakness, tingling, or [...] Follow these instructions at home: Medicines Take dbns-hof-juwaqix and prescription medicines only as told by [...] provider. Document Revised: 05/04/2022 Document Reviewed: 05/04/2022 [employer] Patient Education 2022 [email or web address]. Follow Up Care 09/13/2023 10:59:43 With:Layla Montalvo MD Address: [address] [place] [address]- When: Unknown [facility] Clinical Note 09-13-2023 Note [...] food choices, such as grocery stores and [employer]. What are the signs or symptoms? The [...] alcohol: ? Limit (more content not included)... [facility] Clinical Note 05-30-2020 Note Date & Type Note Facility 05-30-2020 Note OPERATIVE NOTE OPERATION DATE: 05-30-20 ANESTHETIC:General by LMA. PREOPERATIVE DIAGNOSIS: Right ureteral calculus. POSTOPERATIVE DIAGNOSIS:Same. PROCEDURE NAME: 1. Cystoscopy. 2. Right rigid ureteral dilation. 3. Right ureteroscopy. 4. Holmium laser lithotripsy of two ureteral calculi. 5. Stone basket extraction of two ureteral calculi. 6. Placement of a 7 [place] variable length right ureteral stent. COMPLICATIONS: None. [...] fashion. I started by passing a 22 [place] Olympus cystoscope per urethra and into the [...] I then used an 8 and 10 thai rigid dilator to dilate the distal right [...] the bladder. I then slid a 7 thai variable length right ureteral stent over the wire up into the kidney and then removed the wire. There were good curls in the kidney and in the bladder. I then used the Trilibis evacuator to get all the stone pieces out of the bladder and these were sent for stone analysis. The bladder was then drained of it's contents and the scope was then removed. The anesthetic was then reversed. She was then transferred to a [facility] bed and wheeled to the Recovery Room in stable condition. She tolerated it well. There were no complications. She will be discharged to home later today with a script for Keflex 500 mg daily #21 and oxybutynin ER 10 mg daily #21. We will bring her back in a week or two for right ESWL and stent removal. [facility] Signed and Approved by: DR JESUS PORTILLO . 06/06/2020 11:38:00 [facility] Evaluation + Plan note Note Date & Type Note Facility Evaluation + Plan note No data available for this section [facility] Hospital Discharge instructions Note Date & Type Note Facility Hospital Discharge instructions No data available for this section [facility] Progress note Note Date & Type Note Facility Progress note No data available for this section [facility] Summary Purpose Family History [...] section and content) DATE CREATED AUTHOR 06/15/2020 [facility] DATE CREATED AUTHOR AUTHOR'S ORGANIZ ATION 09/18/2023 [facility] EPIC DATE CREATED AUTHOR AUTHOR'S ORGANIZ ATION 09/21/2023 [facility] DATE CREATED AUTHOR AUTHOR'S ORGANIZ ATION 09/26/2023 [facility] Patient Care team informatio n (unrecognized section and content) Personnel Name: Layla Montalvo MD Address: Address: [address] [place], [address] Personnel Name: Layla Montalvo MD Address: Address: [address] [place], [address] Personnel Name: Layla Montalvo MD Address: Address: [address] [id number] FOR RECORDS PERTAINING TO PATIENTS WHO [...] BE BASED ON THE PRIMARY CLINICAL RECORDS. [facility] [place]. provides no warranty or guarantee of the accuracy or completeness of information in this document.
--- NOTE | 2023-10-26 13:02 | VEIN_ITS ---
Patient Name: NEO ZHENG MR#: [id number] : 1960 Exam Date: 10/26/2023 Ordering Doctor: DR NOY DONOVAN M.D. RADIOLOGY REPORT PROCEDURE: VC EXT VENOUS RT LMTD COMPARISON: VC EXT VENOUS RT LMTD, 09/07/2023. INDICATIONS: I80.01 - Phlebitis and thrombophlebitis of superficial ve... TECHNIQUE: Lower extremity medrano scale and Duplex Doppler evaluation of the deep venous system from the inguinal ligament through the calf veins. FINDINGS: REGION: Right lower extremity. THROMBI: Negative for DVT. Heat induced thrombus visualized arising at distal thigh and extending through mid calf. COMPRESSIBILITY: Non-compressible segments corresponding to thrombus FLOW: Areas of no flow corresponding to thrombus CONCLUSION: Post ablation occlusion of the right small saphenous vein with no deep vein thrombus Dictated by: Jericho Aviles MD on 10/26/2023 at 13:20 Approved by: Jericho Aviles MD on 10/26/2023 at 13:20
--- NOTE | 2023-10-26 13:02 | VEIN_ITS ---
Patient Name: NEO ZHENG MR#: [id number] : 1960 Exam Date: 10/26/2023 Ordering Doctor: DR NOY DONOVAN M.D. RADIOLOGY REPORT PROCEDURE: FACILITY EST LMTD VEIN CENTER - OFFICE VISIT FOLLOW UP COMPARISON: [facility] EST LMTD, 10/05/2023. [facility] EST LMTD, 09/07/2023. PROGRESS NOTES: The patient reports no significant problems following intravenous laser ablation of the right small saphenous vein. The patient has worn her compression stocking. The patient did not require oral analgesics. The patient has tried exercise. Physical exam demonstrates no erythema or warmth. No evidence of cellulitis or thrombophlebitis. No active ulceration. The incision is sealed. The small saphenous vein cannot be definitively be palpated Review of the ultrasound performed the same day demonstrates occlusive thrombus extending throughout the treated right small saphenous vein which is a thigh extension. No deep vein thrombus The patient expressed a desire to proceed with treatment of bilateral incompetent varicose veins. VEIN/[facility] EST LMTD IMPRESSION: 1. Successful ablation of the right small saphenous vein 2. Persistent bilateral incompetent varicose veins PLAN: Micro foam chemical ablation incompetent varicose veins Nurse notes, history and physical were reviewed and confirmed, see attached forms. The nurse was present throughout the physical exam and consultation Dictated by: Jericho Aviles MD on 10/26/2023 at 13:57 Approved by: Jericho Aviles MD on 10/26/2023 at 13:59
== END 2023-10-26 13:29 | disposition home or self-care (01) ==
LOC: VC 12:53
PROVIDERS: PCP Radiology Diagnostic Radiology; Visit Provider Radiology Diagnostic Radiology
DX: I80.01 Phlebitis and thrombophlebitis of superficial vessels of right lower extremity (principal)
CPT/HCPCS: 93971; G0463

== ENCOUNTER 2023-12-01 14:25 | Outpatient (OUT) | payer MEDICARE, SELFPAY ==
--- NOTE | 2023-12-01 14:26 | VEIN_ITS ---
[address] [address] Patient Name: NEO ZHENG MRN: [id number] date: 1960 Sex: F Assigned Patient Location: Current Patient Location: Accession/Order Number: [id number] Exam Date: 12/01/2023 14:26 Report Date: 12/01/2023 16:03 At the request of: MANN DIAZ Procedure: VC INJ Foam Sclerosant WUS LOCKSTITCH BACK MAKER PROCEDURE: VC INJ Foam Sclerosant WUS LOCKSTITCH BACK MAKER HISTORY: I83.813 - Varicose veins of bilateral lower extremities w... Pre-operative Diagnosis: CEAP class C3 venous insufficiency with pain, tenderness, edema and incompetent branch saphenous vein(s), chronic venous insufficiency left leg secondary to venous incompetence Post-operative Diagnosis: CEAP class C3 venous insufficiency with pain, tenderness, edema and incompetent branch saphenous vein(s), chronic venous insufficiency left leg secondary to venous incompetence Procedure Performed: 1. Ultrasound-guided microfoam chemical ablation with Varithenaregistered 2. Intraoperative ultrasound guidance Physician: Julien Vega M.D. Anesthesia: None Indications for Procedure: 63 year old female. Symptoms including lower extremity pain, swelling, and dilated bulging veins for many years despite conservative medical therapy including medical compression stockings, exercise and analgesics. Prior procedures include endovenous laser ablation. Multiple incompetent varicosities of the left leg. Duplex scan showed reflux and enlarged diameters up to 4 mm. The patient underwent informed consent including management options where the complications of infection, bleeding, pain, and skin injury were discussed. Particular attention was spent discussing thrombus extension and deep vein thrombosis as well as the possibility of pulmonary embolus and treatment with oral or injectable blood thinners. Procedure: The patient walked to the procedure room. All applicable staff donned appropriate apparel. A procedure timeout was performed to confirm correct patient, correct extremity, correct procedure, and correct room set-up including presence of all applicable supplies, devices, and drugs. A duplex ultrasound, performed by myself confirmed the location and incompetence of branch saphenous varicosities and their course was marked on the skin together with the dilated tributaries. The extent of treatment of the vein and the associated varicosities was determined through ultrasound mapping. The skin was prepped and then punctured with a butterfly needle and advanced under ultrasound guidance. The Varithenaregistered canister was activated and the canister was primed and purged as required in the instructions for use. Varithenaregistered was drawn into a sterile syringe. Varithenaregistered was slowly administered at 0.5-1.0 cc/second with close observation by ultrasound of its course in the vessels. Total volume utilized was: 9 mL (4 mL into a 4 mm varicosity distal medial lower leg; 1 mL into a 4 mm varicosity mid medial calf; 4 mL into a 4 mm varicosity mid medial thigh) series. Following administration of Varithenaregistered the leg was elevated and the patient was asked to repeatedly dorsiflex the ankle to limit flow of Varithenaregistered into perforating veins. Once appropriate spasm had been confirmed in the treated veins, the vascular catheter was removed from the leg and light pressure was applied over the puncture site for hemostasis. The common femoral and deep superficial veins were then evaluated for flow and compressibility prior to dressing placement. The lower extremity was kept elevated at 45 degrees above the horizontal and cording material was applied over the saphenous segments and tributaries to allow for eccentric compression over the target vessels including the targeted saphenous vein(s). A multilayer dressing was applied consisting of foam pads, coban and thigh-high 20-30 mm Hg compression elastic support hose were placed on the patient. The leg was lowered only after compression had been applied and the patient was immediately ambulatory. The patient ambulated 10 minutes under supervision and was without apparent concerns at time of release. Post-care instructions include advising patient to keep post-treatment bandages in place and dry for 48 hours, avoid extended periods of inactivity, avoid heavy exercise for one week, wear compression stockings on the treated leg continuously for two weeks, to walk daily for 10 minutes over the next month. The patient was instructed to take an anti-inflammatory medicine as needed and to follow up for color duplex scan of the Saphenous veins, the treated branch saphenous varicosities, the adjacent deep veins, and additional treatment within 7 days. PERSONNEL: hSaron Castillo RDMS, LARRY Electronically authenticated by: JULIEN VEGA Date: 12/01/2023 16:03
--- OUTSIDE RECORDS SUMMARY | 2023-12-01 14:38 | XMS_ITS | CCD ---
Author Organization [facility] Care Team Providers Care Requirements Manager Name Role Phone LINDSEY, DR LEE Admitting [...] Attending Unavailable Layla Montalvo Primary Care Physician GRIS MOURA Attending Unavailable LAYLA MONTALVO Attending Unavailable Layla Montalvo Admitting Unavailable Layla Montalvo Attending Unavailable REFERRAL, SELF Attending Unavailable Yolis Boyd Attending Unavailable Yolis Boyd Admitting Unavailable Yolis Boyd Attending Unavailable MD Layla Montalvo Attending Unavailable MD Layla Montalvo Admitting Unavailable Allergies Allergy Classification Reported Allergen(s) Allergy Type Date of Onset Reaction(s) Facility Opioid Agonists (1 source) Morphine Drug Allergy 1 [facility] Repository (4 sources) Morphine; Translations: [morphine] Drug Allergy severe vomitting [facility] Medications Current Medications Medication Drug Class(es) Dates Sig (Normalized) Sig (Original) acetaminophen 325 mg / HYDROcodone bitartrate 5 mg oral tablet (3 sources) Opioid Agonist Start: 1 [place] 325 mg-5 mg oral tablet 1 tab(s), [...] day(s), # 30 tab(s), Refills(s) 0, Pharmacy: [facility], 167, cm, 09/13/23 11:24:00 EDT, [...] TID, # 10 tab(s), Refills(s) 0, Pharmacy: [facility]/pharmacy #[id number], 167, cm, 05/24/20 5:39:00 EDT, [...] days, # 4 cap(s), Refills(s) 0, Pharmacy: [facility]/pharmacy #[id number], 167, cm, 05/24/20 5:39:00 EDT, Height/Length Dosing, 93, kg, 05/24/20 5:39:00 EDT, Weight Dosing Start Date: 05/24/20 Status: Ordered topiramate 25 mg oral tablet (6 sources) Start: 6 take 1 tablet by mouth twice daily Topamax 25 mg Tab 25 mg = 1 tab(s), Oral, BID, # 60 tab(s), Refills(s) 0, Pharmacy: [facility]/pharmacy #[id number] Start Date: 09/17/15 Status: Ordered [...] day, # 14 tab(s), Refills(s) 0, Pharmacy: [facility]/pharmacy #[id number], 167, cm, 05/24/20 5:39:00 EDT, [...] 05-29-2020 Chronic Other aftercare (1 source) Other custodial (current) drug therapy; Translations: [OTH SNF CURRENT DRUG THERAPY] Onset: 06-13-2020 Episodic Other aftercare (1 source) [facility] (current) use of aspirin; Translations: [[employer] CURRENT USE OF ASPIRIN] Onset: 06-06-2020 Episodic [...] Basophils/100 WBC (Bld) 0.8 % Normal 0.0-2.0 [facility] Comment on above: Performed By: #### 2 [id number] #### [facility] [address] [place] [address] Basophils/Leukocytes Auto (Bld) [Pure # fraction] 0.1 E9/L Normal 0.0-0.2 [facility] Comment on above: Performed By: #### 2 [id number] #### [facility] [address] [place] [address] Eosinophils (Bld) [#/Vol] 0.2 E9/L Normal 0.0-0.5 [facility] Comment on above: Performed By: #### 2 [id number] #### [facility] [address] [place] [address] Eosinophils/100 WBC (Bld) 1.9 % Normal 0.0-8.0 [facility] Comment on above: Performed By: #### 2 [id number] #### [facility] [address] [place] [address]88[address] Erythrocyte distribution width (RBC) [Ratio] 14.2 % Normal 10.9-14.2 [facility] Comment on above: Performed By: #### 2 [id number] #### [facility] [address] [place] [address] Hematocrit (Bld) [Volume fraction] 36.2 % Normal 34.0-46.0 [facility] Comment on above: Performed By: #### 2 [id number] #### [facility] [address] [place] [address] Hemoglobin (Bld) [Mass/Vol] 12.5 g/dL Normal 12.0-16.0 [facility] Comment on above: Performed By: #### 2 [id number] #### [facility] [address] [place] [address] Lymphocytes (Bld) [#/Vol] 3.0 E9/L Normal 1.0-4.0 [facility] Comment on above: Performed By: #### 2 [id number] #### [facility] [address] [place] [address] Lymphocytes/100 WBC (Bld) 38.3 % Normal 14.0-50.0 [facility] Comment on above: Performed By: #### 2 [id number] #### [facility] [address] [place] [address] MCH (RBC) [Entitic mass] 32.9 pg Normal 27.0-34.0 [facility] Comment on above: Performed By: #### 2 [id number] #### [facility] [address] [place] [address] MCHC (RBC) [Mass/Vol] 34.6 g/dL Normal 31.4-36.0 [facility] Comment on above: Performed By: #### 2 [id number] #### [facility] [address] [place] [address] MCV (RBC) [Entitic vol] 95.2 fL Normal 80.0-100.0 [facility] Comment on above: Performed By: #### 2 [id number] #### [facility] [address] [place] [address] Monocytes (Bld) [#/Vol] 0.9 E9/L Normal 0.2-1.0 [facility] Comment on above: Performed By: #### 2 [id number] #### [facility] [address] [place] [address] Neutrophils (Bld) [#/Vol] 3.8 E9/L Normal 2.0-7.5 [facility] Comment on above: Performed By: #### 2 [id number] #### [facility] [address] [place] [address] Neutrophils/100 WBC (Bld) 47.3 % Normal 36.0-75.0 [facility] Comment on above: Performed By: #### 2 [id number] #### [facility] [address] [place] [address] Platelet 259.0 E9/L Normal 150.0-500.0 [facility] Comment on above: Performed By: #### 2 [id number] #### [facility] [address] [place] [address] Platelet mean volume (Bld) [Entitic vol] 8.4 fL Normal 6.4-10.8 [facility] Comment on above: Performed By: #### 2 [id number] #### [facility] [address] [place] [address] RBC (Bld) [#/Vol] 3.8 E12/L Low 4.3-5.9 [facility] Comment on above: Performed By: #### 2 [id number] #### [facility] [address] [place] [address] WBC corrected for nucl RBC Auto (Bld) [#/Vol] 7.9 E9/L Normal 4.0-11.0 [facility] Comment on above: Performed By: #### 2 832831 #### [facility] [address] [place] [address] CHEMISTRYOrdered By: SYSTEM SYSTEM on 09-20-2023 Albumin [...] 09-20-2023 Albumin [Mass/Vol] 4.1 g/dL Normal 3.3-5.0 [facility] Comment on above: Performed By: #### 2 [id number] #### [facility] [address] [place] [address] Albumin/Globulin (S) [Mass conc ratio] 1.5 Normal 1.1-2.2 [facility] Comment on above: Performed By: #### 2 [id number] #### [facility] [address] [place] [address] ALP [Catalytic activity/Vol] 76 Int._Unit/L Normal 21-98 [facility] Comment on above: Performed By: #### 2 [id number] #### [facility] [address] [place] [address] ALT No additional P-5'-P [Catalytic activity/Vol] 22 Int._Unit/L Normal 6-46 [facility] Comment on above: Performed By: #### 2 [id number] #### [facility] [address] [place] [address] Anion gap [Moles/Vol] 11 mmol/L Normal 6-16 [facility] Comment on above: Performed By: #### 2 [id number] #### [facility] [address] [place] [address] AST [Catalytic activity/Vol] 19 Int._Unit/L Normal 5-43 [facility] Comment on above: Performed By: #### 2 [id number] #### [facility] [address] [place] [address] Bilirubin [Mass/Vol] 0.4 mg/dL Normal 0.0-1.1 [facility] Comment on above: Performed By: #### 2 615392 #### [facility] [address] [place] [address] Calcium [Mass/Vol] 9.4 mg/dL Normal 8.9-11.1 [facility] Comment on above: Performed By: #### 2 507577 #### [facility] [address] [place] [address] Chloride [Moles/Vol] 104 mmol/L Normal 101-111 [facility] Comment on above: Performed By: #### 2 814981 #### [facility] [address] [place] [address] CO2 [Moles/Vol] 27 mmol/L Normal 21-31 [facility] Comment on above: Performed By: #### 2 084071 #### [facility] [address] [place] [address] Creatinine [Mass/Vol] 1.0 mg/dL Normal 0.5-1.3 [facility] Comment on above: Performed By: #### 2 [id number] #### [facility] [address] [place] [address] Globulin (S) [Mass/Vol] 2.7 g/dL Normal 1.4-4.0 [facility] Comment on above: Performed By: #### 2 291582 #### [facility] [address] [place] [address] Glucose [Mass/Vol] 88 mg/dL Normal 55-199 [facility] Comment on above: Performed By: #### 2 310238 #### [facility] [address] [place] [address] Potassium [Moles/Vol] 4.1 mmol/L Normal 3.5-5.3 [facility] Comment on above: Performed By: #### 2 [id number] #### [facility] [address] [place] [address] Protein [Mass/Vol] 6.8 g/dL Normal 6.0-7.8 [facility] Comment on above: Performed By: #### 2 [id number] #### [facility] [address] [place] [address] Sodium [Moles/Vol] 138 mmol/L Normal 135-145 [facility] Comment on above: Performed By: #### 2 [id number] #### [facility] [address] [place] [address] Urea nitrogen [Mass/Vol] 25 mg/dL High 5-21 [facility] Comment on above: Performed By: #### 2 567397 #### [facility] [address] [place] [address] Urea nitrogen/Creatinine [Mass ratio] 25 No Units High 10-20 [facility] Comment on above: Performed By: #### 2 [id number] #### [facility] [address] [place] [address] HEMATOLOGYOrdered By: SYSTEM SYSTEM on 09-20-2023 Basophils/100 [...] 09-20-2023 Cholesterol [Mass/Vol] 184 mg/dL Normal 120-200 [facility] Comment on above: Performed By: #### 2 [id number] #### [facility] [address] [place] [address] Cholesterol in HDL [Mass/Vol] 71 mg/dL Invalid Interpretation Code [facility] Comment on above: Result Comment: '>= 60 LOW RISK' '<= 40 HIGH RISK' Performed By: #### 2 [id number] #### [facility] [address] [place] [address] Cholesterol in LDL [Mass/Vol] 92 mg/dL Normal <=129 [facility] Comment on above: Performed By: #### 2 391090 #### [facility] [address] [place] [address] Cholesterol in VLDL [Mass/Vol] 31 mg/dL Normal 7-40 [facility] Comment on above: Performed By: #### 2 750738 #### [facility] [address] [place] [address] Triglyceride [Mass/Vol] 153 mg/dL High <=149 [facility] Comment on above: Performed By: #### 2 945534 #### [facility] [address] [place] [address] TSH With T4fr Reflexon 09-19 TSH Qn 1.88 m[IU]/L Normal 0.34-5.60 [facility] Comment on above: Performed By: #### 1 [id number] #### [facility] [address] [place] [address] eGFRon 09-20-2023 eGFR 62 mL/min/1.73 m2 Normal >=59 [facility] Comment on above: Order Comment: Order added by Discern Expert. Performed By: #### 1 [id number] #### [facility] [address] [place] [address] Ambulatory Visit Summaryon 0 09-13-2023 Ambulatory Visit Summary Ambulatory Visit Summary NEO ZHENG :1960 Visit Date:09/13/2023 Ambulatory Visit Instructions Your Diagnosis Sciatic pain Left hip pain BMI 33.0-33.9,adult Your Care Team Attending Physician - Deb GALVAN, Leana Primary Care Physician - Katia PELAYO, Layla Narayan This Is Your Medications List acetaminophen-hydroc odone ([place] 325 mg-5 mg oral tablet) aspirin (aspirin [...] Sciatic pain Duration: 10 Days Pickup at [facility] Unchanged acetaminophen-hydroc odone ([place] 325 mg-5 mg oral tablet) 1 Tablets [...] Once a day (at bedtime) Pharmacy Information [facility] 1986: [address] [place], [place] [id number] [phone] Allergies morphine (severe vomitting) Problems Ongoing - [...] for choosing us for your care. Patricio [facility] Family Medicine Office/Clini c Noteon 09-13-2023 Family [...] with voice recognition software. Occasional wrong-word or ?hsnny-u-lpoc? substitutions may have occurred due to the [...] tenderness at the the area of the gbrg-ibd-xqkyid joint and has pain with external rotation of the left hip. States sometimes her back also hurts. She has been using qqir-slp-nhqpyrx medications without much relief. Review of Systems [...] day(s), # 30 tab(s), Refills(s) 0, Pharmacy: [facility], 167, cm, 09/13/23 11:24:00 EDT, Height/Length Dosing, 96, kg, 09/13/23 11:24:00 EDT, Weight Dosing Follow-up With When Contact Information Katia PELAYO, Layla Narayan [address] [place] [address]- Additional Instructions: Patient Education Obesity, Adult BMI for Adults Sciatica, Iayx-yq-Mfbx Problem List/Past Medical History Ongoing Acid reflux [...] lisinopril 10 (more content not included)... Normal [facility] Comment on above: Result Comment: Elec tronically [...] mGy = na DAP = na Normal [facility] CALCULI, URINARYon 1 2,8 Dihydroxyadenine Normal [facility] Comment on above: Performed By: #### C ALCULI #### [facility] [address] [place] [address] Cristi Bina Ammonium Acid Urate Normal [facility] Comment on above: Performed By: #### C ALCULI #### [facility] [address] [place] [address] Cristi Bina Bilirubin Ql (U) Normal The [facility] Comment on above: Performed By: #### C ALCULI #### [facility] [address] [place] [address] Cristi Bnia Ca Oxalate Dihydrate 20 % Normal [facility] Comment on above: Performed By: #### C ALCULI #### [facility] [address] [place] [address] Cristi Bina CaHPO4 (Brushite) Normal [facility] Comment on above: Performed By: #### C ALCULI #### [facility] [address] [place] [address] Cristi Bina Calcium Bilirubinate Normal [place] Comment on above: Performed By: #### C ALCULI #### [facility] [address] [place] [address] Cristi Bina Calcium Carbonate Normal [facility] Comment on above: Performed By: #### C ALCULI #### [facility] [address] [address] Cristi Bina Calcium Oxalate Monohydrate 80 % Normal [facility] Comment on above: Performed By: #### C ALCULI #### [facility] [address] [address] Cristi Bina Calcium Palmitate Normal [facility] Comment on above: Performed By: #### C ALCULI #### [facility] [address] [address] Cristi Bina Calcium Phosphate Normal [facility] Comment on above: Performed By: #### C ALCULI #### [facility] [address] [address] Cristi Bina Calcium Stearate Normal The [facility] Comment on above: Performed By: #### C ALCULI #### [facility] [address] [address] Cristi Bina Carbonate Apatite Normal [facility] Comment on above: Performed By: #### C ALCULI #### [facility] [address] [address] Cristi Bina Cellular Material Normal [facility] Comment on above: Performed By: #### C ALCULI #### [facility] [address] [address] Cristi Bina Cholesterol Normal [facility] Comment on above: Performed By: #### C ALCULI #### [facility] [address] [address] Cristi Bina Color (U) Brown Normal [facility] Comment on above: Performed By: #### C ALCULI #### [facility] [address] [address] Cristi Bina Comment Normal [facility] Comment on above: Performed By: #### C ALCULI #### [facility] [address] [address] Cristi Bina Comment: Comment Normal [facility] Comment on above: Result Comment: Vijay graham questions regarding Calculi Analysis contact [facility] at: [phone]. Performed By: #### C ALCULI #### [facility] [address] [address] Cristi Bina Composition Comment Normal [place] Comment on above: Result Comment: Perc entage (Represents the % composition) Performed By: #### C ALCJOSÉ MANUEL #### [facility] [address] [place] [address] Cristi Bina Cystine Normal [facility] Comment on above: Performed By: #### C ALCJOSÉ MANUEL #### [facility] [address] [address] Cristi Bina Disclaimer: Comment Normal [place] Comment on above: Result Comment: This test was developed and its performance characteristics determined by [facility]. It has not been cleared or approved by the Food and Drug Administration. Performed By: #### C STEPHEN #### [facility] [address] [place] [address] Cristi Bina Dried Blood Normal [facility] Comment on above: Performed By: #### C ALCJOSÉ MANUEL #### [facility] [address] [place] [address] Cristi Bina Drug or Metabolite Normal [facility] Comment on above: Performed By: #### C ALCJOSÉ MANUEL #### [facility] [address] [place] [address] Cristi Bina Hydroxyapatite Normal [facility] Comment on above: Performed By: #### C ALCJOSÉ MANUEL #### [facility] [address] [place] [address] Cristi Bina Mg NH4 PO4 (Struvite) Normal [facility] Comment on above: Performed By: #### C ALCULI #### [facility] [address] [place] [address] Cristi Bina MgHPO4 (Newberyite) Normal [facility] Comment on above: Performed By: #### C ALCJOSÉ MANUEL #### [facility] [address] [place] [address] Cristi Bina Other component(s) Normal [facility] Comment on above: Performed By: #### C ALCJOSÉ MANUEL #### [facility] [address] [place] [address] Cristi Bina PDF . Normal [facility] Comment on above: Performed By: #### C ALCULI #### [facility] [address] [address] Cristi Bina Photo Comment Normal [place] Comment on above: Result Comment: Phot ograph will follow under a separate cover Performed By: #### C ALCULI #### [facility] [address] [address] Cristi Bina Please note: Comment Normal [place] Comment on above: Result Comment: Calc josé manuel report will follow via computer, mail or hand developer delivery. Performed By: #### C ALCULI #### [facility] [address] [address] Cristi Bina Size 4x6 [facility] Comment on above: Result Comment: Mult iple pieces received. Dimensions of the largest piece reported. Performed By: #### C ALCULI #### [facility] [address] [address] Cristi Bina Sodium Acid Urate Normal [facility] Comment on above: Performed By: #### C ALCULI #### [facility] [address] [address] Cristi Bina Source Comment [facility] Comment on above: Result Comment: Righ t Ureter Performed By: #### C ALCULI #### [facility] [address] [address] Cristi Bina Triamterene [facility] Comment on above: Performed By: #### C ALCULI #### [facility] [address] [address] Cristi Bina Uric Acid [facility] Comment on above: Performed By: #### C ALCULI #### [facility] [address] [address] Cristi Bina Uric Acid Dihydrate Normal [facility] Comment on above: Performed By: #### C ALCULI #### [facility] [address] [address] Cristi Bina Weight 122 mg Normal [facility] Comment on above: Performed By: #### C ALCULI #### [facility] [address] [place], [place] [address] Cristi Curran Xanthine Normal [place] Comment on above: Performed By: #### C ALCULI #### [facility] [address] [place], [place] [address] Cristi Curran XR KUB 1 VIEWon 06-06-2020 [...] by: MANN DIAZ Date: 2020-06-06 07:31 Normal [place] XR FLUORO < 1 HRon XR FLUORO [...] by: NOY DONOVAN Date: 2020-05-30 15:24 Normal [place] Vital Signs Date Time Vital Sign Value Performing Clinician Facility 09-13-2023 11:21-0400 Blood Pressure Location Yolis Boyd [facility] 09-13-2023 11:210400 Body temperature 97.88 [degF] Yolis Boyd [facility] 09-13-2023 11:21-0400 Diastolic blood pressure 85 mm[Hg] Yolis Sanchezer [facility] 09-13-2023 11:21-0400 Heart rate 65 /min Yolis Sanchezer [facility] 09-13-2023 11:21-0400 SaO2% (BldA) [Mass fraction] 97 % Yolis Boyd [facility] 09-13-2023 11:21-0400 Systolic blood pressure 135 mm[Hg] Yolis Sanchezer [facility] Encounters Encounter Date Encounter Type Care Provider Facility Start: 09-20-2023 End: 09-20-2023 ambulatory Layla Montalvo Facility:[facility] Start: 09-20-2023 End: 09-20-2023 Patient encounter procedure Layla Montalvo [facility] Start: 09-16-2023 End: 09-16-2023 ambulatory LAYLA MONTALVO Not Available Start: 09-13-2023 End: 09-13-2023 ambulatory Yolis Jasmyn Charlesdner Facility:[facility] Start: 09-13-2023 End: 09-13-2023 Patient encounter procedure Yolis C Danieler [facility] Start: 07-27-2023 End: 07-27-2023 ambulatory SELF REFERRAL Facility:[facility] Start: 05-24-2023 End: 05-24-2023 ambulatory GRIS MOURA Not Available Start: 06-06-2020 End: 06-06-[address] JESUS PORTILLO Facility:[facility] Start: 05-30-2020 End: 05-30-[address] JESUS PORTILLO Facility:[facility] Start: 05-29-[address] JESUS PORTILLO [facility]y:[facility] Procedures Date Procedure Procedure Detail Performing [...] Yolis Boyd [facility] Payers Date Payer Category Payer Medicare [id number] 2023 Medicaid [id number] 2022 Unknown [id number] 1961 Unknown [id number] 1961 Unknown 1960 Unknown [id number] 2.16.84 [id number] 1958 Unknown [id number] 2.16.84 [id number] 1958 Unknown [id number] 2.16.84 [id number] 1958 Unknown [id number] 2.16.84 [id number] 1958 Unknown [id number] 2.16.84 [id number] 1958 Unknown [id number] 2.16.8 [id number] 1958 Unknown [id number] 2.16.8 [id number] 1958 Unknown [id number] 2.16.8 [id number] 1958 Unknown [id number] 2.16.8 [id number] Social History Date Type Detail Facility Start: 09-13-2023 Tobacco smoking status Never s moked tobacco (finding) [facility] Tobacco [facility] status [facility] Sex Assigned At Female [facility] Functional Status Date Assessment Result Facility 09-13-2023 Functional Status N/A [facility] Discharge instructions 09-13-2023 [...] food choices, such as grocery stores and [employer]. What are the signs or symptoms? The [...] and how much exercise you get. Take hnzd-wcz-bzsaoim and prescription medicines only as told by [...] provider. Document Revised: 09/02/2021 Document Reviewed: 09/02/2021 [email or web address] Patient Education 2022 [email or web address] 09/13/2023 19:23:59 BMI for Adults BMI [...] numbers. This can be done either in [place] ([place] or metric measurements. Note that charts and online BMI calculators are available to help you find your BMI quickly and easily without having to do these calculations yourself. To calculate your BMI in [place] ([place] measurements: 1.Measure your weight in pounds [...] Centers for Disease Control and Prevention: www.cdc.gov [place] [employer]: www.heart.org National Heart, Lung, and Blood [place]: www.nhlbi.nih.gov Summary Body mass index (BMI) is a number that is calculated from a person's weight and height. BMI may help estimate how much of a person's weight is composed of fat. BMI can help identify those who may be at higher risk for certain medical problems. BMI can be measured using Kazakh measurements or metric measurements. BMI charts are used to identify whether you are underweight, normal weight, overweight, or obese. This information is not intended to replace advice given to you by your health care provider. Make sure you discuss any questions you have with your health care provider. Document Revised: 10/18/2019 Document Reviewed: 08/25/2019 [email or web address] Patient Education 2022 [email or web address] 09/13/2023 19:23:54 Sciatica, [id number] Sciatica Sciatica is pain, weakness, tingling, or [...] Follow these instructions at home: Medicines Take [id number] and prescription medicines only as told by [...] provider. Document Revised: 05/04/2022 Document Reviewed: 05/04/2022 [employer] Patient Education 2022 [employer] Follow Up Care 09/13/2023 10:59:43 With:Layla Montalvo MD Address: [address] [place] [address]- When: Unknown [facility] Clinical Note 09-13-2023 [...] ovarian syndrome (PCOS). ? Binge-eating disorder. ? [place] syndrome. ? Taking certain medicines, such as [...] food choices, such as grocery stores and [employer]. What are the signs or symptoms? The [...] alcohol: ? Limit (more content not included)... [facility] Clinical Note 05-30-2020 Note Date & Type Note Facility 05-30-2020 Note OPERATIVE NOTE OPERATION DATE: 05-30-20 ANESTHETIC:General by LMA. PREOPERATIVE DIAGNOSIS: Right ureteral calculus. POSTOPERATIVE DIAGNOSIS:Same. PROCEDURE NAME: 1. Cystoscopy. 2. Right rigid ureteral dilation. 3. Right ureteroscopy. 4. Holmium laser lithotripsy of two ureteral calculi. 5. Stone basket extraction of two ureteral calculi. 6. Placement of a 7 Yemeni variable length right ureteral stent. COMPLICATIONS: None. [...] fashion. I started by passing a 22 Yemeni Olympus cystoscope per urethra and into the [...] I then used an 8 and 10 chinese rigid dilator to dilate the distal right [...] the bladder. I then slid a 7 chinese variable length right ureteral stent over the wire up into the kidney and then removed the wire. There were good curls in the kidney and in the bladder. I then used the Cardiac Insight evacuator to get all the stone pieces out of the bladder and these were sent for stone analysis. The bladder was then drained of it's contents and the scope was then removed. The anesthetic was then reversed. She was then transferred to a [facility] bed and wheeled to the Recovery Room in stable condition. She tolerated it well. There were no complications. She will be discharged to home later today with a script for Keflex 500 mg daily #21 and oxybutynin ER 10 mg daily #21. We will bring her back in a week or two for right ESWL and stent removal. [facility] Signed and Approved by: DR JESUS PORTILLO . 06/06/2020 11:38:00 [facility] Evaluation + Plan note Note Date & Type Note Facility Evaluation + Plan note No data available for this section [facility] Hospital Discharge instructions Note Date & Type Note Facility Hospital Discharge instructions No data available for this section [facility] Progress note Note Date & Type Note Facility Progress note No data available for this section [facility] Summary Purpose Family [...] section and content) DATE CREATED AUTHOR 06/15/2020 [facility] DATE CREATED AUTHOR AUTHOR'S ORGANIZ ATION 09/18/2023 [facility] EPIC DATE CREATED AUTHOR AUTHOR'S ORGANIZ ATION 09/21/2023 [facility] DATE CREATED AUTHOR AUTHOR'S ORGANIZ ATION 09/26/2023 [facility] Patient Care team informatio n (unrecognized section and content) Personnel Name: Layla Montalvo MD Address: Address: [address] [place], [address] Personnel Name: Layla Montalvo MD Address: Address: [address] [place], [address] Personnel Name: Layla Montalvo MD Address: Address: [address] [place] FOR RECORDS PERTAINING TO PATIENTS WHO [...] BE BASED ON THE PRIMARY CLINICAL RECORDS. [facility] [employer] [facility]. provides no warranty or guarantee of the accuracy or completeness of information in this document.
[2023-12-01 14:53] VITALS: BMI 27.4
--- NOTE | 2023-12-01 14:53 | VEINCLINIC_ITS ---
Vital Signs 12/01/23 14:53 Height 5 ft 6 in Weight 77 kg BMI 27.4 Varicose Veins Patient in this day for Varithena/microfoam chemical ablation left leg. Julien Santana MD personally performed the services described in this documentation, as scribed by Sharon Castillo RVT, RDMS in my presence and it is both accurate and complete. Sharon Santana RVT, RDMS am scribing for, and in the presence of, Dr. Julien Vega and in the presence of the patient. medial thigh: bilateral, knee: bilateral, calf: bilateral, ankle: bilateral and zepeda: bilateral dull, sharp and intermittent 8 2 months Worsened in recent months: Yes standing bed rest, elevating extremities and compression stockings Reports muscle spasms of leg, heaviness, edema and leg edema History of lower extremity trauma: No Superficial thrombophlebitis: No Family history of varicose veins: unknown Has patient had previous lower extremity venous surgery: No Patient has previously received the following treatment(s) for lower extremity varicose veins: Reports sclerotherapy Does patient have a history of : yes Does patient intend to have future pregnancies: no Has patient had lower extremity venous scan with relux testing: Yes Support hose used: Yes Problems walking or doing physical activity: Yes How does it affect you: Pain and heaviness when walking Do you walk much: Yes Do you stand much: Yes Medication compliance: good Review of Systems ROS Narrative Julien Santana MD personally performed the services described in this documentation, as scribed by Sharon Castillo RVT, RDMS in my presence and it is both accurate and complete. Sharon Santana RVT, RDMS, am scribing for, and in the presence of, Dr. Julien Vega and in the presence of the patient. Status of ROS 10 or more systems reviewed and unremark able except as noted in history and below Cardiovascular Reports: edema, swelling of feet/ankles and leg pain with exertion Musculoskeletal Reports: extremity pain, extremity swelling, limited range of motion, joint swelling, muscle cramps and muscle weakness Integumentary/Breast Reports: itching, redness, skin pain, skin tenderness, skin swelling, new lesion, non-healing lesion and changes in skin color Neurological Reports: numbness in extremities and weakness in extremities PFSH PFSH Medical History (Updated 08/24/23 @ 15:05 by Stefan Ross) Phlebitis and thrombophlebitis of superficial vessels of right lower extremity ?I80.01 - Phlebitis and thrombophlebitis of superficial vessels of right lower extremity (ICD-10) Phlebitis and thrombophlebitis of superficial vessels of left lower extremity ?I80.02 - Phlebitis and thrombophlebitis of superficial vessels of left lower extremity (ICD-10) Varicose veins of bilateral lower extremities with pain ?I83.813 - Varicose veins of bilateral lower extremities with pain (ICD-10) Kidney stone ?N20.0 - Calculus of kidney (ICD-10) Insomnia ?G47.00 - Insomnia, unspecified (ICD-10) Hypotension ?I95.9 - Hypotension, unspecified (ICD-10) Hypertension ?I10 - Essential (primary) hypertension (ICD-10) Surgical History (Updated 08/10/23 @ 15:02 by Sharon Castillo) Status post ablation of incompetent vein using laser ?Z98.890 - Other specified postprocedural states (ICD-10) History of bilateral oophorectomy ?Z90.722 - Acquired absence of ovaries, bilateral (ICD-10) History of plastic surgery ?Z98.890 - Other specified postprocedural states (ICD-10) History of gastric bypass ?Z98.84 - Bariatric surgery status (ICD-10) Family History (Updated 08/10/23 @ 15:02 by Sharon Castillo) Other Family history not known due to adoption Social History (Updated 08/10/23 @ 15:03 by Sharon Castillo) Within the past year, how often did you have a drink containing alcohol: 2-4 times a month Smoking status: Never smoker Non-prescribed substance use: denies use Meds Home Medications and Allergies Home Medications ?Medication ?Instructions ?Recorded ?Confirmed ?Type aspirin 81 mg capsule 81 mg PO DAILY 08/10/23 08/10/23 History carvedilol 6.25 mg tablet (Coreg) 6.25 mg PO BID 08/10/23 08/10/23 History cholecalciferol (vitamin D3) 50 50 mcg PO DAILY 08/10/23 08/10/23 History mcg (2,000 unit) capsule (D3-2000) levothyroxine 100 mcg tablet 100 mcg PO DAILY 08/10/23 08/10/23 History (Euthyrox) trazodone 50 mg tablet 25 mg PO DAILY 08/10/23 08/10/23 History triamterene 37.5 1 cap PO DAILY 08/10/23 08/10/23 History mg-hydrochlorothiazide 25 mg capsule Allergies Allergy/AdvReac Type Severity Reaction Status Date / Time No Known Drug Allergies Allergy Verified 07/30/23 17:01 Exam Narrative Exam Narrative: IJulien MD personally performed the services described in this documentation, as scribed by Sharon Castillo RVT, RDMS in my presence and it is both accurate and complete. I, Sharon Castillo RVT, RDMS, am scribing for, and in the presence of, Dr. Julien Vega and in the presence of the patient. Constitutional Documenting provider has reviewed patient's vital signs: yes Common normals: oriented x3 Lymph Lymphatic: no lymphedema noted Cardio Common normals: regular rate Rate: regular rate Peripheral pulses: posterior tibial pulses present and dorsalis pedis pulses present Extremity Common normals: normal capillary refill General: calf tenderness and edema Right lower extremity: upper leg and lower leg Left lower extremity: upper leg and lower leg Neuro Common normals: oriented x3 Assessment and Plan Assessment and Plan (1) Varicose veins of bilateral lower extremities with pain: Plan Left leg microfoam chemical ablation/Varithena: Risks and benefits of the procedure were discussed at length and informed written consent was obtained.? Time-out procedure was performed and the correct patient and procedure were confirmed.? Staff present during time-out: Silvana Francois RN, Sharon Castillo. LARRY RUTLEDGE, and Julien Vega MD.? Patient prepped and procedure performed in usual sterile fashion.? Patient was placed in Trendelenburg prior to Polidocanol/Varithena injections. Sclerosing Agent:?? 9cc 1% Polidocanol/Varithena Site Injected: 4 cc distal/medial calf 1 cc mid/med calf 4 cc mid/med thigh Number of Injections:? 3 The patient tolerated the procedure well without complication.? Hemostasis was obtained and thigh-high compression stocking was applied with foam pads.? Instructed patient to wear stocking for at least 96 hours and sleep with it and only remove for showering.? The patient was instructed to? wear stocking for 2 weeks.? Patient verbalizes understanding and states they will comply.? Patient was given post-procedure instructions. Patient was discharged in good condition.? Scheduled to undergo limited venous ultrasound and? exam on 12/08/2023. Procedures Procedure Note Procedure: Varithena/microfoam chemical ablation left leg.
--- NOTE | 2023-12-01 15:32 | W.VEIN ---
Discharge Plan Discharge Disposition: Home, Self-Care Outpatient Diagnostics: VC Facility EST LMTD (Routine) Timeframe: 2 Weeks Facility: [facility] - Location: Vein Center Ordered By: Julien Vega VC EXT Venous LT Limited (Routine) Timeframe: 2 Weeks Facility: [facility] - Location: Vein Center Ordered By: Julien Vega Follow Up Appointments: 12/08/23 Plan of Treatment: F/U ultrasound post Varithena/microfoam chemical ablation left leg. Patient Instructions: Polidocanol (By injection) (Asclera, Varithena) Print Language: Amharic Discharge Date/Time: 12/01/23 15:35
== END 2023-12-01 15:35 | disposition home or self-care (01) ==
PROVIDERS: PCP Radiology Diagnostic Radiology; Visit Provider Radiology Diagnostic Radiology
DX: I83.813 Varicose veins of bilateral lower extremities with pain (principal)
CPT/HCPCS: 36466

== ENCOUNTER 2023-12-08 13:33 | Outpatient (OUT) | payer MEDICARE, SELFPAY ==
--- NOTE | 2023-12-08 13:34 | VEIN_ITS ---
Patient Name: NEO ZHENG MR#: [id number] : 1960 Exam Date: 12/08/2023 Ordering Doctor: DR NOY DONOVAN M.D. RADIOLOGY REPORT PROCEDURE: [facility] EST LMTD VEIN [facility]ENTER - OFFICE VISIT FOLLOW UP COMPARISON: [facility], 10/26/2023. PROGRESS NOTES: The patient reports improvement in leg symptoms. There has been interval reduction in varicosities. The patient has followed our recommendations to walk 20-30 minutes once or twice per day since the procedure. Physical exam demonstrates decrease in varicosities of the leg. Persistent varicose are identified along the right leg. Review of the ultrasound performed the same day demonstrates occlusive thrombus extending throughout the treated vein(s), see separate report, consistent with a successful ablation. No thrombus extending into or beyond the saphenofemoral junction. The patient expressed a desire to proceed with treatment of remaining incompetent varicosities. The patient was informed that treatment was a process and would require 1-2 procedures/sessions. [facility] IM[facility]: 1. Successful ablation of the left leg treated branch saphenous vein(s). 2. Persistent varicose veins and lower extremity symptoms. PLAN: Microfoam chemical ablation of right leg incompetent branch saphenous varicosities. Nurse notes, history and physical were reviewed and confirmed, see attached forms. The nurse was present throughout the physical exam and consultation Dictated by: Noy Donovan M.D. on 12/08/2023 at 14:21 Approved by: Noy Donovan M.D. on 12/08/2023 at 14:22
--- NOTE | 2023-12-08 13:34 | VEIN_ITS ---
Patient Name: NEO ZHENG MR#: [id number] : 1960 Exam Date: 12/08/2023 Ordering Doctor: DR NOY VEGA M.D. RADIOLOGY REPORT PROCEDURE: VC EXT VENOUS LT LIMITED COMPARISON: VC EXT VENOUS LT LIMITED, 10/05/2023. INDICATIONS: I80.02 - Phlebitis and thrombophlebitis of superficial veins left leg TECHNIQUE: Lower extremity medrano scale and Duplex Doppler evaluation of the deep venous system from the inguinal ligament through the calf veins. FINDINGS: REGION: Left lower extremity. THROMBI: Negative for DVT. Chemically induced thrombus in multiple varicose veins in left leg. COMPRESSIBILITY: Non-compressible segments corresponding to thrombus FLOW: Areas of no flow corresponding to thrombus OTHER: No significant varicose veins remain. CONCLUSION: 1. Successful post ablation occlusion of left leg treated branch saphenous varicosities. Dictated by: Noy Vega M.D. on 12/08/2023 at 13:54 Approved by: Noy Vega M.D. on 12/08/2023 at 14:16
[2023-12-08 13:38] VITALS: BMI 27.4
--- NOTE | 2023-12-08 13:38 | VEINCLINIC_ITS ---
Vital Signs 12/08/23 13:38 Height 5 ft 6 in Weight 77 kg BMI 27.4 Varicose Veins Patient in today for follow up ultrasound of left lower extremity following treatment of Varithena/microfoam completed on 12/01/23. Julien Santana MD personally performed the services described in this documentation, as scribed by Nellie Bergman RDMS in my presence and it is both accurate and complete. Nellie Santana RDMS, am scribing for, and in the presence of, Dr. Stephania Vega and in the presence of the patient. medial thigh: bilateral, knee: bilateral, calf: bilateral, ankle: bilateral and zepeda: bilateral dull, sharp and intermittent 8 2 months Worsened in recent months: Yes standing bed rest, elevating extremities and compression stockings Reports muscle spasms of leg, heaviness, edema and leg edema History of lower extremity trauma: No Superficial thrombophlebitis: No Family history of varicose veins: unknown Has patient had previous lower extremity venous surgery: No Patient has previously received the following treatment(s) for lower extremity varicose veins: Reports sclerotherapy Does patient have a history of : yes Does patient intend to have future pregnancies: no Has patient had lower extremity venous scan with relux testing: Yes Support hose used: Yes Problems walking or doing physical activity: Yes How does it affect you: Pain and heaviness when walking Do you walk much: Yes Do you stand much: Yes Medication compliance: good Review of Systems ROS Narrative Julien Santana MD personally performed the services described in this documentation, as scribed by Nellie Bergman RDMS in my presence and it is both accurate and complete. Nellie Santana RDMS, am scribing for, and in the presence of, Dr. Stephania Vega and in the presence of the patient. Status of ROS 10 or more systems reviewed and unremark able except as noted in history and below Cardiovascular Reports: edema, swelling of feet/ankles and leg pain with exertion Musculoskeletal Reports: extremity pain, extremity swelling, limited range of motion, joint swelling, muscle cramps and muscle weakness Integumentary/Breast Reports: itching, redness, skin pain, skin tenderness, skin swelling, new lesion, non-healing lesion and changes in skin color Neurological Reports: numbness in extremities and weakness in extremities PFSH [facility] Medical History (Updated 08/24/23 @ 15:05 by Stefan Ross) Phlebitis and thrombophlebitis of superficial vessels of right lower extremity ?I80.01 - Phlebitis and thrombophlebitis of superficial vessels of right lower extremity (ICD-10) Phlebitis and thrombophlebitis of superficial vessels of left lower extremity ?I80.02 - Phlebitis and thrombophlebitis of superficial vessels of left lower extremity (ICD-10) Varicose veins of bilateral lower extremities with pain ?I83.813 - Varicose veins of bilateral lower extremities with pain (ICD-10) Kidney stone ?N20.0 - Calculus of kidney (ICD-10) Insomnia ?G47.00 - Insomnia, unspecified (ICD-10) Hypotension ?I95.9 - Hypotension, unspecified (ICD-10) Hypertension ?I10 - Essential (primary) hypertension (ICD-10) Surgical History (Updated 08/10/23 @ 15:02 by Sharon Castillo) Status post ablation of incompetent vein using laser ?Z98.890 - Other specified postprocedural states (ICD-10) History of bilateral oophorectomy ?Z90.722 - Acquired absence of ovaries, bilateral (ICD-10) History of plastic surgery ?Z98.890 - Other specified postprocedural states (ICD-10) History of gastric bypass ?Z98.84 - Bariatric surgery status (ICD-10) Family History (Updated 08/10/23 @ 15:02 by Sharon Castillo) Other Family history not known due to adoption Social History (Updated 08/10/23 @ 15:03 by Sharon Castillo) Within the past year, how often did you have a drink containing alcohol: 2-4 times a month Smoking status: Never smoker Non-prescribed substance use: denies use Meds Home Medications and Allergies Home Medications ?Medication ?Instructions ?Recorded ?Confirmed ?Type aspirin 81 mg capsule 81 mg PO DAILY 08/10/23 08/10/23 History carvedilol 6.25 mg tablet (Coreg) 6.25 mg PO BID 08/10/23 08/10/23 History cholecalciferol (vitamin D3) 50 50 mcg PO DAILY 08/10/23 08/10/23 History mcg (2,000 unit) capsule (D3-2000) levothyroxine 100 mcg tablet 100 mcg PO DAILY 08/10/23 08/10/23 History (Euthyrox) trazodone 50 mg tablet 25 mg PO DAILY 08/10/23 08/10/23 History triamterene 37.5 1 cap PO DAILY 08/10/23 08/10/23 History mg-hydrochlorothiazide 25 mg capsule Allergies Allergy/AdvReac Type Severity Reaction Status Date / Time No Known Drug Allergies Allergy Verified 07/30/23 17:01 Exam Narrative Exam Narrative: Julien Santana MD personally performed the services described in this documentation, as scribed by Nellie Bergman RDMS in my presence and it is both accurate and complete. Nellie Santana RDMS, am scribing for, and in the presence of, Dr. Stephania Vega and in the presence of the patient. Constitutional Documenting provider has reviewed patient's vital signs: yes Common normals: oriented x3 Lymph Lymphatic: no lymphedema noted Cardio Common normals: regular rate Rate: regular rate Peripheral pulses: posterior tibial pulses present and dorsalis pedis pulses present Extremity Common normals: normal capillary refill General: calf tenderness and edema Right lower extremity: upper leg and lower leg Left lower extremity: upper leg and lower leg Neuro Common normals: oriented x3 Results Imaging Venous US: Radiologist's impression: Chemically induced thrombus in multiple varicose veins left leg. Julien Santana MD personally performed the services described in this documentation, as scribed by Nellie Bergman RDMS in my presence and it is both accurate and complete. Nellie Santana RDMS, am scribing for, and in the presence of, Dr. Stephania Vega and in the presence of the patient. Assessment and Plan Assessment and Plan (1) Phlebitis and thrombophlebitis of superficial vessels of left lower extremity: Plan Plan is for patient to return for Varithena/microfoam of right leg on 12/22/23. Julien Santana MD personally performed the services described in this documentation, as scribed by Nellie Bergman RDMS in my presence and it is both accurate and complete. I, Nellie Bollenbacher RDMS, am scribing for, and in the presence of, Dr. Stephania Vega and in the presence of the patient.
--- NOTE | 2023-12-08 14:04 | W.VEIN ---
Discharge Plan Discharge Disposition: Home, Self-Care Outpatient Diagnostics: VC INJ Foam Sclerosant WULuisa [employer]OPER (Routine) Timeframe: 1 Month Facility: [facility] - Location: Vein Center Ordered By: Julien Vega Follow Up Appointments: 12/22/23 Plan of Treatment: Varithena/microfoam right leg Print Language: Macedonian Discharge Date/Time: 12/08/23 14:05
== END 2023-12-08 14:05 | disposition home or self-care (01) ==
PROVIDERS: PCP Radiology Diagnostic Radiology; Visit Provider Radiology Diagnostic Radiology
DX: I80.02 Phlebitis and thrombophlebitis of superficial vessels of left lower extremity (principal)
CPT/HCPCS: 93971; G0463

== ENCOUNTER 2023-12-22 13:02 | Outpatient (OUT) | payer MEDICARE, SELFPAY ==
--- NOTE | 2023-12-21 14:01 | VEINCLINIC_ITS ---
Vital Signs 12/22/23 13:05 BP 141/82 BP Location Left Brachial BP Position Sitting BP Cuff Size Adult BP Source Automatic Cuff Respiration 16 Pulse 74 Pulse Source Monitor Pulse Oximetry (%) 95 Oxygen Delivery Method Room Air Comment The patient's blood pressure is elevated. Varicose Veins Patient in today for microfoam chemical ablation Jericho Santana MD personally performed the services described in this documentation, as scribed by Stefan Ross RN in my presence and it is both accurate and complete. Stefan Santana RN, am scribing for, and in the presence of, Dr. Jericho Aviles and in the presence of the patient. medial thigh: bilateral, knee: bilateral, calf: bilateral, ankle: bilateral and zepeda: bilateral dull, sharp and intermittent 8 2 months Worsened in recent months: Yes standing bed rest, elevating extremities and compression stockings Reports muscle spasms of leg, heaviness, edema and leg edema History of lower extremity trauma: No Superficial thrombophlebitis: No Family history of varicose veins: unknown Has patient had previous lower extremity venous surgery: No Patient has previously received the following treatment(s) for lower extremity varicose veins: Reports sclerotherapy Does patient have a history of : yes Does patient intend to have future pregnancies: no Has patient had lower extremity venous scan with relux testing: Yes Support hose used: Yes Problems walking or doing physical activity: Yes How does it affect you: Pain and heaviness when walking Do you walk much: Yes Do you stand much: Yes Medication compliance: good Review of Systems ROS Narrative Jericho Santana MD personally performed the services described in this documentation, as scribed by Stefan Ross RN in my presence and it is both accurate and complete. Stefan Santana RN, am scribing for, and in the presence of, Dr. Jericho Aviles and in the presence of the patient. Status of ROS 10 or more systems reviewed and unremark able except as noted in history and below Cardiovascular Reports: edema, swelling of feet/ankles and leg pain with exertion Musculoskeletal Reports: extremity pain, extremity swelling, limited range of motion, joint swelling, muscle cramps and muscle weakness Integumentary/Breast Reports: itching, redness, skin pain, skin tenderness, skin swelling, new lesion, non-healing lesion and changes in skin color Neurological Reports: numbness in extremities and weakness in extremities [facility] Medical History (Updated 08/24/23 @ 15:05 by Stefan Ross) Phlebitis and thrombophlebitis of superficial vessels of right lower extremity ?I80.01 - Phlebitis and thrombophlebitis of superficial vessels of right lower extremity (ICD-10) Phlebitis and thrombophlebitis of superficial vessels of left lower extremity ?I80.02 - Phlebitis and thrombophlebitis of superficial vessels of left lower extremity (ICD-10) Varicose veins of bilateral lower extremities with pain ?I83.813 - Varicose veins of bilateral lower extremities with pain (ICD-10) Kidney stone ?N20.0 - Calculus of kidney (ICD-10) Insomnia ?G47.00 - Insomnia, unspecified (ICD-10) Hypotension ?I95.9 - Hypotension, unspecified (ICD-10) Hypertension ?I10 - Essential (primary) hypertension (ICD-10) Surgical History (Updated 12/22/23 @ 13:51 by Stefan Ross) S/P sclerotherapy of varicose veins ?Z98.890 - Other specified postprocedural states (ICD-10) ?Z86.79 - Personal history of other diseases of the circulatory system (ICD- 10) Status post ablation of incompetent vein using laser ?Z98.890 - Other specified postprocedural states (ICD-10) History of bilateral oophorectomy ?Z90.722 - Acquired absence of ovaries, bilateral (ICD-10) History of plastic surgery ?Z98.890 - Other specified postprocedural states (ICD-10) History of gastric bypass ?Z98.84 - Bariatric surgery status (ICD-10) Family History (Updated 08/10/23 @ 15:02 by Sharon Castillo) Other Family history not known due to adoption Social History (Updated 08/10/23 @ 15:03 by Sharon Castillo) Within the past year, how often did you have a drink containing alcohol: 2-4 times a month Smoking status: Never smoker Non-prescribed substance use: denies use Meds Home Medications and Allergies Home Medications ?Medication ?Instructions ?Recorded ?Confirmed ?Type aspirin 81 mg capsule 81 mg PO DAILY 08/10/23 08/10/23 History carvedilol 6.25 mg tablet (Coreg) 6.25 mg PO BID 08/10/23 08/10/23 History cholecalciferol (vitamin D3) 50 50 mcg PO DAILY 08/10/23 08/10/23 History mcg (2,000 unit) capsule (D3-2000) levothyroxine 100 mcg tablet 100 mcg PO DAILY 08/10/23 08/10/23 History (Euthyrox) trazodone 50 mg tablet 25 mg PO DAILY 08/10/23 08/10/23 History triamterene 37.5 1 cap PO DAILY 08/10/23 08/10/23 History mg-hydrochlorothiazide 25 mg capsule Allergies Allergy/AdvReac Type Severity Reaction Status Date / Time No Known Drug Allergies Allergy Verified 07/30/23 17:01 Exam Narrative Exam Narrative: Jericho Santana MD personally performed the services described in this documentation, as scribed by Stefan Ross RN in my presence and it is both accurate and complete. Stefan Santana RN, am scribing for, and in the presence of, Dr. Jericho Aviles and in the presence of the patient. Constitutional Documenting provider has reviewed patient's vital signs: yes Common normals: oriented x3 Lymph Lymphatic: no lymphedema noted Cardio Common normals: regular rate Rate: regular rate Peripheral pulses: posterior tibial pulses present and dorsalis pedis pulses present Extremity Common normals: normal capillary refill General: calf tenderness and edema Right lower extremity: upper leg and lower leg Left lower extremity: upper leg and lower leg Neuro Common normals: oriented x3 Assessment and Plan Assessment and Plan (1) Varicose veins of bilateral lower extremities with pain: Plan f/u examination with physician along with right leg limited u/s Jericho Santana MD personally performed the services described in this documentation, as scribed by Stefan Ross RN in my presence and it is both accurate and complete. Stefan Santana RN, am scribing for, and in the presence of, Dr. Jericho Aviles and in the presence of the patient. Procedures Procedure Instructions Procedures leg microfoam chemical ablation/Varithena: Risks and benefits of the procedure were discussed at length and informed written consent was obtained.? Time-out procedure was performed and the correct patient and procedure were confirmed.? Staff present during time-out: Stefan Ross RN and Jericho Aviles MD.? Patient prepped and procedure performed in usual sterile fashion.? Patient was placed in Trendelenburg prior to Polidocanol/Varithena injections. Sclerosing Agent:?? 13cc 1% Polidocanol/Varithena Site Injected: 3cc varithena administered in to a left distal medial lower lower leg 6cc varithena administered in to a 4mm varicose vein proximal medial right lower leg 4cc varithena administered in to a 4mm varicose vein medial popliteal fossa Number of Injections:? 3 The patient tolerated the procedure well without complication.? Hemostasis was obtained and thigh-high compression stocking was applied with foam pads.? Instructed patient to wear stocking for at least 96 hours and sleep with it and only remove for showering.? The patient was instructed to? wear stocking for 2 weeks.? Patient verbalizes understanding and states they will comply.? Patient was given post-procedure instructions. Patient was discharged in good condition.? Scheduled to undergo limited venous ultrasound and? exam on 12/29/2023 Jeircho Santana MD personally performed the services described in this documentation, as scribed by Stefan Ross RN in my presence and it is both accurate and complete. Stefan Santana RN, am scribing for, and in the presence of, Dr. Jericho Aviles and in the presence of the patient.
--- NOTE | 2023-12-21 14:11 | P.DS_ITS ---
Discharge Plan Discharge Disposition: Home, Self-Care Outpatient Diagnostics: VC Facility EST LMTD (Routine) Timeframe: 2 Weeks Facility: [facility] - Location: Vein Center Ordered By: Jericho Aviles VC EXT Venous RT LMTD (Routine) Timeframe: 2 Weeks Facility: [facility] - Location: Vein Center Ordered By: Jericho Aviles Follow Up Appointments: 12/29/2023 Plan of Treatment: f/u examination with physician along with right leg limited u/s Patient Instructions: Polidocanol (By injection) (Alissa Robthekurt) Print Language: Comoran Discharge Date/Time: 12/22/23 13:49
--- NOTE | 2023-12-22 13:02 | VEIN_ITS ---
[address] [address] Patient Name: NEO ZHENG MRN: [id number] date: 1960 Sex: F Assigned Patient Location: Current Patient Location: Accession/Order Number: [id number] Exam Date: 12/22/2023 13:02 Report Date: 12/22/2023 13:57 At the request of: NOY DONOVAN Procedure: VC INJ Foam Sclerosant WUS ROOF FIXER PROCEDURE: VC INJ Foam Sclerosant WUS ROOF FIXER COMPARISON: None. HISTORY: I83.813 - Varicose veins of bilateral lower extremities w... Pre-operative Diagnosis: CEAP class C3 venous insufficiency with pain, tenderness, edema and incompetent right varicose and saphenous vein(s), chronic venous insufficiency right leg secondary to venous incompetence Post-operative Diagnosis: CEAP class C3 venous insufficiency with pain, tenderness, edema and incompetent right varicose and saphenous vein(s), chronic venous insufficiency right leg secondary to venous incompetence Procedure Performed: 1. Ultrasound-guided microfoam chemical ablation with Varithenaregistered 2. Intraoperative ultrasound guidance Anesthesia: None Indications for Procedure: 63-year-old female who presents with a long history of lower extremity pain swelling and subcutaneous edema. The patient failed conservative medical therapy including medical compression stockings, exercise and analgesics. Prior procedures include endovenous laser ablation. Multiple incompetent varicosities of the right leg. Duplex scan showed reflux and enlarged diameters up to 4 mm. The patient underwent informed consent including management options where the complications of infection, bleeding, pain, and skin injury were discussed. Particular attention was spent discussing thrombus extension and deep vein thrombosis as well as the possibility of pulmonary embolus and treatment with oral or injectable blood thinners. Procedure: The patient walked to the procedure room. All applicable staff donned appropriate apparel. A procedure timeout was performed to confirm correct patient, correct extremity, correct procedure, and correct room set-up including presence of all applicable supplies, devices, and drugs. A duplex ultrasound, performed by myself confirmed the location and incompetence of branch saphenous varicosities and their course was marked on the skin together with the dilated tributaries. The extent of treatment of the vein and the associated varicosities was determined through ultrasound mapping. The skin was prepped and then punctured with a butterfly needle and advanced under ultrasound guidance. The Varithenaregistered canister was activated and the canister was primed and purged as required in the instructions for use. Varithenaregistered was drawn into a sterile syringe. The following injections were made: 3 cc injected into a 4 mm varicose vein distal medial right lower leg 6 cc injected into a 4 mm varicose vein proximal medial right lower leg 4 cc injected into a 4 mm varicose vein medial popliteal fossa Varithenaregistered was slowly administered at 0.5-1.0 cc/second with close observation by ultrasound of its course in the vessels. Total volume utilized was: 14cc. Following administration of Varithenaregistered the leg was elevated and the patient was asked to repeatedly dorsiflex the ankle to limit flow of Varithenaregistered into perforating veins. Once appropriate spasm had been confirmed in the treated veins, the vascular catheter was removed from the leg and light pressure was applied over the puncture site for hemostasis. The common femoral and deep superficial veins were then evaluated for flow and compressibility prior to dressing placement. The lower extremity was kept elevated at 45 degrees above the horizontal and cording material was applied over the saphenous segments and tributaries to allow for eccentric compression over the target vessels including the targeted saphenous vein(s). A multilayer dressing was applied consisting of foam pads, coban and thigh-high 20-30 mm Hg compression elastic support hose were placed on the patient. The leg was lowered only after compression had been applied and the patient was immediately ambulatory. The patient ambulated 10 minutes under supervision and was without apparent concerns at time of release. Post-care instructions include advising patient to keep post-treatment bandages in place and dry for 48 hours, avoid extended periods of inactivity, avoid heavy exercise for one week, wear compression stockings on the treated leg continuously for two weeks, to walk daily for 10 minutes over the next month. The patient was instructed to take an anti-inflammatory medicine as needed and to follow up for color duplex scan of the Saphenous veins, the treated branch saphenous varicosities, the adjacent deep veins, and additional treatment within 7 days. PERSONNEL: Stefan Ross RN Electronically authenticated by: MANN DIAZ Date: 12/22/2023 13:57
[2023-12-22 13:05] VITALS: BP 141/82; PULSE 74; O2SAT 95
== END 2023-12-22 13:49 | disposition home or self-care (01) ==
LOC: VC 13:02
PROVIDERS: PCP Radiology Diagnostic Radiology; Visit Provider Radiology Diagnostic Radiology
DX: I83.813 Varicose veins of bilateral lower extremities with pain (principal)
CPT/HCPCS: 36466

== ENCOUNTER 2023-12-29 12:58 | Outpatient (OUT) | payer MEDICARE, SELFPAY ==
[2023-12-29 09:51] VITALS: BMI 27.4
--- NOTE | 2023-12-29 09:51 | VEINCLINIC_ITS ---
Vital Signs 12/29/23 09:51 Height 5 ft 6 in Weight 77 kg BMI 27.4 Varicose Veins Patient in today for follow up ultrasound of right lower extremity following treatment of Varithena/microfoam completed on 12/25/23. Jericho Santana MD personally performed the services described in this documentation, as scribed by Nellie Bergman RDMS in my presence and it is both accurate and complete. Nellie Santana RDMS, am scribing for, and in the presence of, Dr. Jericho Aviles and in the presence of the patient. medial thigh: bilateral, knee: bilateral, calf: bilateral, ankle: bilateral and zepeda: bilateral dull, sharp and intermittent 8 2 months Worsened in recent months: Yes standing bed rest, elevating extremities and compression stockings Reports muscle spasms of leg, heaviness, edema and leg edema History of lower extremity trauma: No Superficial thrombophlebitis: No Family history of varicose veins: unknown Has patient had previous lower extremity venous surgery: No Patient has previously received the following treatment(s) for lower extremity varicose veins: Reports sclerotherapy Does patient have a history of : yes Does patient intend to have future pregnancies: no Has patient had lower extremity venous scan with relux testing: Yes Support hose used: Yes Problems walking or doing physical activity: Yes How does it affect you: Pain and heaviness when walking Do you walk much: Yes Do you stand much: Yes Medication compliance: good Review of Systems ROS Narrative Jericho Santana MD personally performed the services described in this documentation, as scribed by Nellie Bergman RDMS in my presence and it is both accurate and complete. Nellie Santana RDMS, am scribing for, and in the presence of, Dr. Jericho Aviles and in the presence of the patient. Status of ROS 10 or more systems reviewed and unremark able except as noted in history and below Cardiovascular Reports: edema, swelling of feet/ankles and leg pain with exert ion Musculoskeletal Reports: extremity pain, extremity swelling, limited range of motion, joint swelling, muscle cramps and muscle weakness Integumentary/Breast Reports: itching, redness, skin pain, skin tenderness, skin swelling, new lesion, non-healing lesion and changes in skin color Neurological Reports: numbness in extremities and weakness in extremities PFSH [facility] Medical History (Updated 08/24/23 @ 15:05 by Stefan Ross) Phlebitis and thrombophlebitis of superficial vessels of right lower extremity ?I80.01 - Phlebitis and thrombophlebitis of superficial vessels of right lower extremity (ICD-10) Phlebitis and thrombophlebitis of superficial vessels of left lower extremity ?I80.02 - Phlebitis and thrombophlebitis of superficial vessels of left lower extremity (ICD-10) Varicose veins of bilateral lower extremities with pain ?I83.813 - Varicose veins of bilateral lower extremities with pain (ICD-10) Kidney stone ?N20.0 - Calculus of kidney (ICD-10) Insomnia ?G47.00 - Insomnia, unspecified (ICD-10) Hypotension ?I95.9 - Hypotension, unspecified (ICD-10) Hypertension ?I10 - Essential (primary) hypertension (ICD-10) Surgical History (Updated 12/22/23 @ 13:51 by Stefan Ross) S/P sclerotherapy of varicose veins ?Z98.890 - Other specified postprocedural states (ICD-10) ?Z86.79 - Personal history of other diseases of the circulatory system (ICD- 10) Status post ablation of incompetent vein using laser ?Z98.890 - Other specified postprocedural states (ICD-10) History of bilateral oophorectomy ?Z90.722 - Acquired absence of ovaries, bilateral (ICD-10) History of plastic surgery ?Z98.890 - Other specified postprocedural states (ICD-10) History of gastric bypass ?Z98.84 - Bariatric surgery status (ICD-10) Family History (Updated 08/10/23 @ 15:02 by Sharon Castillo) Other Family history not known due to adoption Social History (Updated 08/10/23 @ 15:03 by Sharon Castillo) Within the past year, how often did you have a drink containing alcohol: 2-4 times a month Smoking status: Never smoker Non-prescribed substance use: denies use Meds Home Medications and Allergies Home Medications ?Medication ?Instructions ?Recorded ?Confirmed ?Type aspirin 81 mg capsule 81 mg PO DAILY 08/10/23 08/10/23 History carvedilol 6.25 mg tablet (Coreg) 6.25 mg PO BID 08/10/23 08/10/23 History cholecalciferol (vitamin D3) 50 50 mcg PO DAILY 08/10/23 08/10/23 History mcg (2,000 unit) capsule (D3-2000) levothyroxine 100 mcg tablet 100 mcg PO DAILY 08/10/23 08/10/23 History (Euthyrox) trazodone 50 mg tablet 25 mg PO DAILY 08/10/23 08/10/23 History triamterene 37.5 1 cap PO DAILY 08/10/23 08/10/23 History mg-hydrochlorothiazide 25 mg capsule Allergies Allergy/AdvReac Type Severity Reaction Status Date / Time No Known Drug Allergies Allergy Verified 07/30/23 17:01 Exam Narrative Exam Narrative: Jericho Santana MD personally performed the services described in this documentation, as scribed by Nellie Bergman RDMS in my presence and it is both accurate and complete. Nellie Santana RDMS, am scribing for, and in the presence of, Dr. Jericho Aviles and in the presence of the patient. Constitutional Documenting provider has reviewed patient's vital signs: yes Common normals: oriented x3 Lymph Lymphatic: no lymphedema noted Cardio Common normals: regular rate Rate: regular rate Peripheral pulses: posterior tibial pulses present and dorsalis pedis pulses present Extremity Common normals: normal capillary refill General: calf tenderness and edema Right lower extremity: upper leg and lower leg Left lower extremity: upper leg and lower leg Neuro Common normals: oriented x3 Results Imaging Venous US: Radiologist's impression: Chemically induced thrombus in multiple varicose veins in right leg. Jericho Santana MD personally performed the services described in this documentation, as scribed by Nellie Bergman RDMS in my presence and it is both accurate and complete. Nellie Santana RDMS, am scribing for, and in the presence of, Dr. Jericho Aviles and in the presence of the patient. Assessment and Plan Assessment and Plan (1) Phlebitis and thrombophlebitis of superficial vessels of right lower extremity: Plan Plan is for patient to return for sclerotherapy on 01/04/24. Jericho Santana MD personally performed the services described in this documentation, as scribed by Nellie Bergman RDMS in my presence and it is both accurate and complete. I, Nellie Bergman RDMS, am scribing for, and in the presence of, Dr. Jericho Aviles and in the presence of the patient.
--- NOTE | 2023-12-29 09:54 | P.DS_ITS ---
Discharge Plan Discharge Disposition: Home, Self-Care Outpatient Diagnostics: VC INJ Sclerosing SOLMULT Vein (Routine) Timeframe: 1 Month Facility: [facility] - Location: Vein Center Ordered By: Jericho Aviles Follow Up Appointments: 01/04/24 Print Language: Persian
--- NOTE | 2023-12-29 13:04 | VEIN_ITS ---
Patient Name: NEO ZHENG MR#: [id number] : 1960 Exam Date: 12/29/2023 Ordering Doctor: DR JERICHO AVILES M.D. RADIOLOGY REPORT PROCEDURE: [facility] EST LMTD VEIN CENTER - OFFICE VISIT FOLLOW UP COMPARISON: [facility] EST LMTD, 12/08/2023. [facility] EST LMTD, 10/26/2023. PROGRESS NOTES: The patient reports no significant problems following micro foam chemical ablation of right leg incompetent varicose veins. The patient has worn her compression stocking in tried exercise. The patient did not require oral analgesics. Physical exam demonstrates multiple thrombosed varicose veins. Residual reticular and spider veins. No residual patent varicose veins are seen on physical exam. No erythema or warmth to suggest cellulitis or thrombophlebitis. No active ulceration Review of the ultrasound performed the same day demonstrates occlusive thrombus extending throughout the treated right leg varicose veins. No deep vein thrombus. Single residual 3.2 mm varicose vein. The patient expressed a desire to proceed with treatment of reticular and spider veins with injection sclerotherapy. VEIN/[facility] EST LMTD IMPRESSION: 1. Successful ablation of treated right leg varicose veins 2. Persistent bilateral reticular and spider veins. PLAN: Injection sclerotherapy Nurse notes, history and physical were reviewed and confirmed, see attached forms. The nurse was present throughout the physical exam and consultation Dictated by: Jericho Aviles MD on 12/29/2023 at 13:34 Approved by: Jericho Aviles MD on 12/29/2023 at 13:36
--- NOTE | 2023-12-29 13:04 | VEIN_ITS ---
Patient Name: NEO ZHENG MR#: [id number] : 1960 Exam Date: 12/29/2023 Ordering Doctor: DR JERICHO AVILES M.D. RADIOLOGY REPORT PROCEDURE: VC EXT VENOUS RT LMTD COMPARISON: [facility] EXT VENOUS RT LMTD, 10/26/2023. VC EXT VENOUS RT LMTD, 09/07/2023. INDICATIONS: I80.01 - Phlebitis and thrombophlebitis of superficial veins right leg TECHNIQUE: Lower extremity medrano scale and Duplex Doppler evaluation of the deep venous system from the inguinal ligament through the calf veins. FINDINGS: REGION: Right lower extremity. THROMBI: Negative for DVT. Chemically induced thrombus in multiple varicose veins in right leg. COMPRESSIBILITY: Non-compressible segments corresponding to thrombus FLOW: Areas of no flow corresponding to thrombus OTHER: Patent varicose vein mid medial lower leg measures 3.2mm. CONCLUSION: Post ablation occlusion of treated right leg varicose veins. No deep vein thrombus Dictated by: Jericho Aviles MD on 12/29/2023 at 13:23 Approved by: Jericho Aviles MD on 12/29/2023 at 13:23
--- OUTSIDE RECORDS SUMMARY | 2023-12-29 13:25 | XMS_ITS | CCD ---
Author Organization [facility] Care Team Providers Care Parachute Folder Name Role Phone LINDSEY, DR LEE Admitting Unavailable PORTILLO, DR LEE Attending Unavailable ALLSOP, DR LANDRY Referring Unavailable PORTILLO, DR LEE Consulting Unavailable WEST, DR MANN Bueno Consulting Unavailable DORKOSKIEJACQUIE Consulting Unavailable PORTILLO, DR LEE Admitting Unavailable PORTILLO, DR LEE Attending Unavailable PORTILLO, DR LEE Consulting Unavailable ALLSOP, DR LANDRY Referring Unavailable ZIEBER, DR NOY De Leon Consulting Unavailable ANNE RIVERA Consulting Unavailable PORTILLO, DR LEE Admitting Unavailable PORTILLO, DR LEE Attending Unavailable Layla Montalvo Primary Care Physician [phone] Layla Montalvo Admitting Unavailable Layla Montalvo Attending Unavailable REFERRAL, SELF Attending Unavailable Yolis Boyd Attending Unavailable Yolis Boyd Admitting Unavailable Yolis Boyd Attending Unavailable MD Layla Montalvo Attending Unavailable MD Layla Montalvo Admitting Unavailable ALLGRIS MARROQUIN Attending Unavailable LAYLA MONTALVO Attending Unavailable LAYLA MONTALVO Attending Unavailable Layla Montalvo MD Primary Care Provider Layla Montalvo MD Unavailable Allergies Allergy Classification Reported Allergen(s) Allergy Type Date of Onset Reaction(s) Facility Opioid Agonists (1 source) Morphine Drug Allergy 1 [facility] Repository (7 sources) Morphine; Translations: [morphine] Drug Allergy 6 GI intolerance [facility] Medications Current Medications Medication Drug Class(es) Dates Sig (Normalized) Sig (Original) acetaminophen 325 mg / HYDROcodone bitartrate 5 mg oral tablet (3 sources) Opioid Agonist Start: 05-29-2020 Costa 325 mg-5 mg oral tablet 1 tab(s), Oral, q6hr for pain, 10 tab(s), Refill(s) 0, Pain, [facility]/pharmacy #[id number], 170, cm, 05/29/20 10:19:00 EDT, Height/Length Dosing, 98.5, kg, 05/29/20 10:19:00 EDT, Weight Dosing Start Date: 05/29/20 Status: Ordered aspirin 81 mg chewable tablet (3 sources) Platelet Aggregation Inhibitor, Nonsteroidal Anti-inflammatory Drug Start: 05-29-2020 aspirin 81 mg Chew Tab mg tab(s), Chewed, Daily, Refills(s) 0 Start Date: 05/29/20 Status: Ordered buPROPion (3 sources) Aminoketone Start: 05-29-2020 Wellbutrin SR Oral, BID, Refills(s) 0 Start Date: 05/29/20 Status: Ordered carvedilol 12.5 mg oral tablet (6 sources) alpha-Adrenergic Ken, beta-Adrenergic Ken Start: 12-19-2022 take 1 tablet by mouth in the morning carvedilol (Coreg) 12.5 MG tablet Indications: Primary hypertension (CMS/HCC) Take 1 tablet (12.5 mg) by mouth in the morning and 1 tablet (12.5 mg) in the evening. Take with meals. 180 tablet 3 12/19/2022 Active Start: 05-29-2020 Coreg Oral, BI D, Refills(s) 0 Start Date: 05/29/20 Status: Ordered famotidine 20 mg oral tablet (3 sources) Histamine-2 Receptor Antagonist Start: 09-13-2015 take 1 tablet by mouth twice daily famotidine 20 mg oral tablet 20 mg = 1 tab(s), Oral, BID, Refills(s) 0 Start Date: 09/13/15 Status: Ordered FLUoxetine 20 mg oral capsule (5 sources) Serotonin Reuptake Inhibitor Start: 12-20-2023 End: 01-19-2024 take 1 capsule by mouth once daily FLUoxetine (PROzac) 20 MG capsule Indications: Anxiety Take 1 capsule (20 mg) by mouth Daily 30 capsule 12/20/2023 01/19/2024 Active Start: 11-19-2022 End: 12-20-2023 take 1 capsule by mouth in the morning FLUoxetine (PROzac) 40 MG capsule Indications: Major depressive disorder with single episode, in partial remission (HCC) (CMS/HCC) Take 1 capsule (40 mg) by mouth in the morning. 90 capsule 3 11/19/2022 12/20/2023 Discontinued hydroCHLOROthiazide 25 mg / triamterene 37.5 mg oral tablet (6 sources) Potassium-sparing Diuretic, Thiazide Diuretic Start: 09-13-2023 Start: 11-19-2022 take 1 tablet by radha th in the morning triamterene-hydrochlorothiazide (Maxzide -25) 37.5-25 MG tablet Indications: Primary hypertension (CMS/HCC) Take 1 tablet by mouth in the morning. 90 tablet 3 11/19/2022 Active levothyroxine sodium 0.1 mg oral tablet (6 sources) l-Thyroxine Start: 11-19-2022 take 1 tablet by mouth before mealtime levothyroxine (Synthroid, Levoxyl) 100 MCG tablet Indications: Hypothyroidism, unspecified type (CMS/HCC) Take 1 tablet (100 mcg) by mouth in the morning. Take before meals. 90 tablet 3 11/19/2022 Active Start: 09-13-2015 take 1 tablet by radha th once daily levothyroxine 100 mcg (0.1 mg) oral tablet 100 microgram = 1 tab(s), Oral, Daily, Refills(s) 0 Start Date: 09/13/15 Status: Ordered lisinopril 10 mg oral tablet (3 sources) Angiotensin Converting Enzyme Inhibitor Start: 09-13-2015 take 1 tablet by mouth once daily lisinopril 10 mg oral tablet 10 mg = 1 tab(s), Oral, Daily, Refills(s) 0 Start Date: 09/13/15 Status: Ordered losartan potassium 100 mg oral tablet (3 sources) Angiotensin 2 Receptor Ken Start: 11-19-2022 take 1 tablet by mouth in the morning losartan (Cozaar) 100 MG tablet Indications: Primary hypertension (CMS/HCC) Take 1 tablet (100 mg) by mouth in the morning. 90 tablet 3 11/19/2022 Active methocarbamol 500 mg oral tablet (3 sources) Muscle Relaxant Start: 09-17-2015 take 1 tablet by mouth three times daily methocarbamol 500 mg Tab 500 mg = 1 tab(s), Oral, TID, Refills(s) 0 Start Date: 09/17/15 Status: Ordered ondansetron 4 mg oral tablet (3 sources) Serotonin-3 Receptor Antagonist Start: 05-24-2020 take 1 tablet by mouth three times daily Zofran ODT 4 mg Tab 4 mg = 1 tab(s), Oral, TID, # 10 tab(s), Refills(s) 0, [id number], cm, 05/24/20 5:39:00 EDT, Height/Length Dosing, 93, kg, 05/24/20 5:39:00 EDT, Weight Dosing Start Date: 05/24/20 Status: Ordered simvastatin 20 mg oral tablet (3 sources) HMG-CoA Reductase Inhibitor Start: 09-23-2023 End: 09-22-2024 take 1 tablet by mouth at bedtime simvastatin (Zocor) 20 MG tablet Indications: Mixed hyperlipidemia (CMS/HCC) Take 1 tablet (20 mg) by mouth at bedtime 90 tablet 3 09/23/2023 09/22/2024 Active tamsulosin hydrochloride 0.4 mg oral capsule (3 sources) alpha-Adrenergic Ken Start: 05-24-2020 take 1 capsule by mouth once daily Flomax 0.4 mg Cap 0.4 mg = 1 cap(s), Oral, Daily, Take one capsule by mouth daily for four days, # 4 cap(s), Refills(s) 0, Pharmacy: [facility]/pharmacy #[id number], 167, cm, 05/24/20 5:39:00 EDT, Height/Length Dosing, 93, kg, 05/24/20 5:39:00 EDT, Weight Dosing Start Date: 05/24/20 Status: Ordered topiramate 25 mg oral tablet (6 sources) Start: 09-17-2015 take 1 tablet by mouth twice daily Topamax 25 mg Tab 25 mg = 1 tab(s), Oral, BID, # 60 tab(s), Refills(s) 0, Pharmacy: [facility]/pharmacy #[id number] Start Date: 09/17/15 Status: Ordered traMADol hydrochloride 50 mg oral tablet (3 sources) Opioid Agonist Start: 09-13-2015 take 1-2 tablets by mouth every eight hours traMADOL 50 mg Tab 1-2 tab(s), Oral, q8hr, Refills(s) 0 Start Date: 09/13/15 Status: Ordered traZODone hydrochloride 100 mg oral tablet (8 sources) Serotonin Reuptake Inhibitor Start: 12-20-2023 End: 12-19-2024 take 2 tablets by mouth at bedtime traZODone (Desyrel) 100 MG tablet Indications: Insomnia, unspecified type Take 2 tablets (200 mg) by mouth at bedtime 180 tablet 3 12/20/2023 12/19/2024 Active Start: 05-24-2023 End: 12-20-2023 take 1 tablet by mouth at bedtime traZODone (Desyrel) 100 MG tablet Indications: Insomnia, unspecified type Take 1 tablet (100 mg) by mouth at bedtime 30 tablet 3 05/24/2023 12/20/2023 Discontinued (Reorder) Start: 09-13-2015 take 2 tablets by mo uth once daily at bedtime traZODONE 100 mg Tab 200 mg = 2 tab(s), Oral, Once a day (at bedtime), Refills(s) 0 Start Date: 09/13/15 Status: Ordered Completed/Discontinued Medications Medication Drug Class(es) Dates Sig (Normalized) Sig (Original) cyclobenzaprine hydrochloride 10 mg oral tablet (6 sources) Muscle Relaxant Start: 09-13-2023 End: 12-20-2023 take 1 tablet by mouth three times daily as needed cyclobenzaprine (Flexeril) 10 MG tablet Take 10 mg by mouth 3 (three) times a day as needed 09/13/2023 12/20/2023 Discontinued naproxen 500 mg oral tablet (3 sources) Nonsteroidal Anti-inflammatory Drug Start: 05-24-2020 take 1 tablet by mouth twice daily naproxen 500 mg Tab 500 mg = 1 tab(s), Oral, BID, Take one tab by mouth two times a day, # 14 tab(s), Refills(s) 0, Pharmacy: [facility]/pharmacy #[id number], 167, cm, 05/24/20 5:39:00 EDT, [...] Translations: [Flank pain] Onset: 06-06-2020 05-29-2020 Episodic Anxiety disorders (5 sources) Anxiety; Translations: [Anxiety disorder, unspecified] Onset: 09-16-2023 09-16-2023 Chronic Calculus of urinary tract (7 sources) Calculus of kidney; Translations: [Kidney stone] Onset: 06-06-2020 Episodic Esophageal disorders (7 sources) Gastro-esophageal reflux disease without esophagitis; Translations: [Gastroesophageal reflux disease] Onset: 06-13-2020 09-17-2015 Chronic Essential hypertension (9 sources) Essential (primary) hypertension; Translations: [Hypertensive disorder] Onset: 06-13-2020 09-13-2015 Chronic Genitourinary symptoms and ill-defined conditions (7 sources) Stress incontinence (female) (male); Translations: [Genuine stress incontinence] Onset: 06-06-2020 05-29-2020 Chronic Malaise and fatigue (3 sources) Chronic fatigue syndrome; Translations: [Chronic fatigue syndrome] Onset: 09-16-2023 09-16-2023 Chronic Miscellaneous mental health disorders (3 sources) Primary insomnia; Translations: [Primary insomnia] Onset: 09-16-2023 09-16-2023 Chronic Mood disorders (4 sources) Major depressive disorder, single episode, unspecified; Translations: [Depressive disorder] Onset: 06-13-2020 05-29-2020 Chronic Nutritional deficiencies (3 sources) Vitamin D deficiency; Translations: [Vitamin D deficiency, unspecified] Onset: 09-16-2023 09-16-2023 Chronic Osteoarthritis (10 sources) Unspecified osteoarthritis, unspecified site; Translations: [Arthritis] Onset: 06-13-2020 05-29-2020 Chronic Other aftercare (1 source) Other detention (current) drug therapy; Translations: [OTH SNAP SHEARER CURRENT DRUG THERAPY] Onset: 06-13-2020 Episodic Other aftercare (1 source) technician terminal and repeater (current) use of aspirin; Translations: [SNAP SHEARER CURRENT USE OF ASPIRIN] Onset: 06-06-2020 Episodic [...] index (BMI) 33.0-33.9, adult] Onset: 09-13-2023 Chronic Other nutritional; endocrine; and metabolic disorders (4 sources) Body mass index 30+ - obesity; Translations: [Body mass index (BMI) 34.0-34.9, adult] 12-20-2023 Chronic Other screening for suspected conditions (not mental disorders or infectious disease) (4 sources) Patient encounter status; Translations: [Encounter for screening mammogram for malignant neoplasm of breast] 12-20-2023 Episodic Residual codes; unclassified (2 sources) Insomnia; Translations: [Insomnia, unspecified] 12-20-2023 Episodic Spondylosis; intervertebral disc disorders; other back problems (3 sources) Degeneration of lumbar intervertebral disc; Translations: [DDD (degenerative disc disease), lumbar] Onset: 09-16-2023 09-16-2023 Chronic Spondylosis; intervertebral disc disorders; other back problems (2 sources) Lumbago with sciatica; Translations: [Lumbago with sciatica, unspecified side] Onset: 09-13-2023 Episodic Thyroid disorders (7 sources) Hypothyroidism, unspecified; Translations: [Hypothyroidism] Onset: 06-13-2020 09-13-2015 Chronic Results Test Name Value Interpretation Reference Range Facility CBC w/ Auto Diffon 4 Basophils/100 WBC (Bld) 0.8 % Normal 0.0-2.0 [facility] Comment on above: Performed By: #### 2 [id number] #### [facility] [address] [place] [address] Basophils/Leukocytes Auto (Bld) [Pure # fraction] 0.1 E9/L Normal 0.0-0.2 [facility] Comment on above: Performed By: #### 2 [id number] #### [facility] [address] [place] [address] Eosinophils (Bld) [#/Vol] 0.2 E9/L Normal 0.0-0.5 [facility] Comment on above: Performed By: #### 2 [id number] #### [facility] [address] [place] [address] Eosinophils/100 WBC (Bld) 1.9 % Normal 0.0-8.0 [facility] Comment on above: Performed By: #### 2 [id number] #### [facility] [address] [place] [address] Erythrocyte distribution width (RBC) [Ratio] 14.2 % Normal 10.9-14.2 [facility] Comment on above: Performed By: #### 2 [id number] #### [facility] [address] [place] [address] Hematocrit (Bld) [Volume fraction] 36.2 % Normal 34.0-46.0 [facility] Comment on above: Performed By: #### 2 [id number] #### [facility] [address] [place] [address] Hemoglobin (Bld) [Mass/Vol] 12.5 g/dL Normal 12.0-16.0 [facility] Comment on above: Performed By: #### 2 [id number] #### [facility] [address] [place] [address] Lymphocytes (Bld) [#/Vol] 3.0 E9/L Normal 1.0-4.0 [facility] Comment on above: Performed By: #### 2 [id number] #### [facility] [address] [place] [address] Lymphocytes/100 WBC (Bld) 38.3 % Normal 14.0-50.0 [facility] Comment on above: Performed By: #### 2 [id number] #### [facility] [address] [place] [address] MCH (RBC) [Entitic mass] 32.9 pg Normal 27.0-34.0 [facility] Comment on above: Performed By: #### 2 [id number] #### [facility] [address] [place] [address] MCHC (RBC) [Mass/Vol] 34.6 g/dL Normal 31.4-36.0 [facility] Comment on above: Performed By: #### 2 [id number] #### [facility] [address] [place] [address] MCV (RBC) [Entitic vol] 95.2 fL Normal 80.0-100.0 [facility] Comment on above: Performed By: #### 2 [id number] #### [facility] [address] [place] [address] Monocytes (Bld) [#/Vol] 0.9 E9/L Normal 0.2-1.0 [facility] Comment on above: Performed By: #### 2 [id number] #### [facility] [address] [place] [address] Neutrophils (Bld) [#/Vol] 3.8 E9/L Normal 2.0-7.5 [facility] Comment on above: Performed By: #### 2 [id number] #### [facility] [address] [place] [address] Neutrophils/100 WBC (Bld) 47.3 % Normal 36.0-75.0 [facility] Comment on above: Performed By: #### 2 [id number] #### [facility] [address] [place] [address] Platelet 259.0 E9/L Normal 150.0-500.0 [facility] Comment on above: Performed By: #### 2 [id number] #### [facility] [address] [place] [address] Platelet mean volume (Bld) [Entitic vol] 8.4 fL Normal 6.4-10.8 [facility] Comment on above: Performed By: #### 2 [id number] #### [facility] [address] [place] [address] RBC (Bld) [#/Vol] 3.8 E12/L Low 4.3-5.9 [facility] Comment on above: Performed By: #### 2 [id number] #### [facility] [address] [place] [address] WBC corrected for nucl RBC Auto (Bld) [#/Vol] 7.9 E9/L Normal 4.0-11.0 [facility] Comment on above: Performed By: #### 2 [id number] #### [facility] [address] [place] [address] CHEMISTRYOrdered By: SYSTEM SYSTEM on 09-20-2023 Albumin [...] 09-20-2023 Albumin [Mass/Vol] 4.1 g/dL Normal 3.3-5.0 [facility] Comment on above: Performed By: #### 2 [id number] #### [facility] [address] [place] [address] Albumin/Globulin (S) [Mass conc ratio] 1.5 Normal 1.1-2.2 [facility] Comment on above: Performed By: #### 2 [id number] #### [facility] [address] [place] [address] ALP [Catalytic activity/Vol] 76 Int._Unit/L Normal 21-98 [facility] Comment on above: Performed By: #### 2 [id number] #### [facility] [address] [place] [address] ALT No additional P-5'-P [Catalytic activity/Vol] 22 Int._Unit/L Normal 6-46 [facility] Comment on above: Performed By: #### 2 [id number] #### [facility] [address] [place] [address] Anion gap [Moles/Vol] 11 mmol/L Normal 6-16 [facility] Comment on above: Performed By: #### 2 [id number] #### [facility] [address] [place] [address] AST [Catalytic activity/Vol] 19 Int._Unit/L Normal 5-43 [facility] Comment on above: Performed By: #### 2 [id number] #### [facility] [address] [place] [address] Bilirubin [Mass/Vol] 0.4 mg/dL Normal 0.0-1.1 [facility] Comment on above: Performed By: #### 2 [id number] #### [facility] [address] [place] [address] Calcium [Mass/Vol] 9.4 mg/dL Normal 8.9-11.1 [facility] Comment on above: Performed By: #### 2 [id number] #### [facility] [address] [place] [address] Chloride [Moles/Vol] 104 mmol/L Normal 101-111 [facility] Comment on above: Performed By: #### 2 [id number] #### [facility] [address] [place] [address] CO2 [Moles/Vol] 27 mmol/L Normal 21-31 [facility] Comment on above: Performed By: #### 2 [id number] #### [facility] [address] [place] [address] Creatinine [Mass/Vol] 1.0 mg/dL Normal 0.5-1.3 [facility] Comment on above: Performed By: #### 2 [id number] #### [facility] [address] [place] [address] Globulin (S) [Mass/Vol] 2.7 g/dL Normal 1.4-4.0 [facility] Comment on above: Performed By: #### 2 [id number] #### [facility] [address] [place] [address] Glucose [Mass/Vol] 88 mg/dL Normal 55-199 [facility] Comment on above: Performed By: #### 2 [id number] #### [facility] [address] [place] [address] Potassium [Moles/Vol] 4.1 mmol/L Normal 3.5-5.3 [facility] Comment on above: Performed By: #### 2 [id number] #### [facility] [address] [place] [address] Protein [Mass/Vol] 6.8 g/dL Normal 6.0-7.8 [facility] Comment on above: Performed By: #### 2 [id number] #### [facility] [address] [place] [address] Sodium [Moles/Vol] 138 mmol/L Normal 135-145 [facility] Comment on above: Performed By: #### 2 [id number] #### [facility] [address] [place] [address] Urea nitrogen [Mass/Vol] 25 mg/dL High 5-21 [facility] Comment on above: Performed By: #### 2 [id number] #### [facility] [address] [place] [address] Urea nitrogen/Creatinine [Mass ratio] 25 No Units High 10-20 [facility] Comment on above: Performed By: #### 2 [id number] #### [facility] [address] [place] [address] HEMATOLOGYOrdered By: SYSTEM SYSTEM on 09-20-2023 Basophils/100 [...] 09-20-2023 Cholesterol [Mass/Vol] 184 mg/dL Normal 120-200 [facility] Comment on above: Performed By: #### 2 [id number] #### [facility] [address] [place] [address] Cholesterol in HDL [Mass/Vol] 71 mg/dL Invalid Interpretation Code [facility] Comment on above: Result Comment: '>= 60 LOW RISK' '<= 40 HIGH RISK' Performed By: #### 2 [id number] #### [facility] [address] [place] [address] Cholesterol in LDL [Mass/Vol] 92 mg/dL Normal <=129 [facility] Comment on above: Performed By: #### 2 [id number] #### [facility] [address] [place] [address] Cholesterol in VLDL [Mass/Vol] 31 mg/dL Normal 7-40 [facility] Comment on above: Performed By: #### 2 [id number] #### [facility] [address] [place] [address] Triglyceride [Mass/Vol] 153 mg/dL High <=149 [facility] Comment on above: Performed By: #### 2 [id number] #### [facility] [address] [place] [address] TSH With T4fr Reflexon 09-19 TSH Qn 1.88 m[IU]/L Normal 0.34-5.60 [facility] Comment on above: Performed By: #### 1 [id number] #### [facility] [address] [facility] [place] [address] eGFRon 09-20-2023 eGFR 62 mL/min/1.73 m2 Normal >=59 [facility] Comment on above: Order Comment: Order added by Discern Expert. Performed By: #### 1 [id number] #### [facility] [address] [facility] [address] [place] [address] Ambulatory Visit Summaryon 0 09-13-2023 Ambulatory Visit Summary Ambulatory Visit Summary NEO ZHENG :1960 Visit Date:09/13/2023 Ambulatory Visit Instructions Your Diagnosis Sciatic pain Left hip pain BMI 33.0-33.9,adult Your Care Team Attending Physician - Deb GALVAN, Leana Primary Care Physician - Katia PELAYO, Layla Narayan This Is Your Medications List acetaminophen-hydroc odone (Costa 325 mg-5 mg oral tablet) aspirin (aspirin [...] Sciatic pain Duration: 10 Days Pickup at [facility] 1985 Unchanged acetaminophen-hydroc odone (Costa 325 mg-5 mg oral tablet) 1 Tablets [...] Once a day (at bedtime) Pharmacy Information [facility]: [address] [place], [place] [id number] [phone] Allergies morphine (severe vomitting) Problems Ongoing - [...] you for choosing us for your care. Normal [facility] Office/Clini c Noteon 09-13-2023 [...] with voice recognition software. Occasional wrong-word or ?mbsmb-r-[id number]? substitutions may have occurred due to the [...] tenderness at the the area of the nzdh-vqz-pvgbad joint and has pain with external rotation of the left hip. States sometimes her back also hurts. She has been using [id number] medications without much relief. Review of Systems [...] day(s), # 30 tab(s), Refills(s) 0, Pharmacy: [facility], 167, cm, 09/13/23 11:24:00 EDT, Height/Length Dosing, 96, kg, 09/13/23 11:24:00 EDT, Weight Dosing Follow-up With When Contact Information Katia PELAYO, Layla Narayan [address] [place] [address]- Additional Instructions: Patient Education Obesity, Adult BMI for Adults Sciatica, [id number] Problem List/Past Medical History Ongoing Acid reflux [...] lisinopril 10 (more content not included)... Normal [facility] Comment on above: Result Comment: Elec tronically Signed By: Leana Gurrola\.br\Date and Time Signed: 09/13/23 19:26 EDT XR Hip 2-3 Views Lefton 08-0 XR Hip 2-3 Views Left Exam Date/Time: [...] mGy = na DAP = na Normal [facility] CALCULI, URINARYon 1 2,8 Dihydroxyadenine Normal [facility] Comment on above: Performed By: #### C ALCULI #### [facility] [address] [place] [address] Cristi Bina Ammonium Acid Urate Normal [facility] Comment on above: Performed By: #### C ALCULI #### [facility] [address] [place] [address] Cristi Bina Bilirubin Ql (U) Normal [facility] Comment on above: Performed By: #### C ALCULI #### [facility] [address] [place] [address] Cristi Bina Ca Oxalate Dihydrate 20 % Normal [facility] Comment on above: Performed By: #### C ALCULI #### [facility] [address] [place] [address] Cristi Bina CaHPO4 (Brushite) Normal [facility] Comment on above: Performed By: #### C ALCULI #### [facility] [address] [place] [address] Cristi Bina Calcium Bilirubinate Normal [facility] Comment on above: Performed By: #### C ALCULI #### [facility] [address] [place] [address] Cristi Bina Calcium Carbonate Normal [facility] Comment on above: Performed By: #### C ALCULI #### [facility] [facility] [address] [place], [place] [address] Cristi Bina Calcium Oxalate Monohydrate 80 % Normal [facility] Comment on above: Performed By: #### C ALCULI #### [facility] [address] [address] Cristi Bina Calcium Palmitate Normal [facility] Comment on above: Performed By: #### C ALCULI #### [facility] [address] [address] Cristi Bina Calcium Phosphate Normal [facility] Comment on above: Performed By: #### C ALCULI #### [facility] [address] [address] Cristi Bina Calcium Stearate Normal [facility] Comment on above: Performed By: #### C ALCULI #### [facility] [address] [address] Cristi Bina Carbonate Apatite Normal [facility] Comment on above: Performed By: #### C ALCULI #### [facility] [address] [address] Cristi Bina Cellular Material Normal [facility] Comment on above: Performed By: #### C ALCULI #### [facility] [address] [address] Cristi Bina Cholesterol Normal [facility] Comment on above: Performed By: #### C ALCULI #### [facility] [address] [address] Cristi Bina Color (U) Brown Normal [facility] Comment on above: Performed By: #### C ALCULI #### [facility] [address] [address] Cristi Bina Comment Normal [facility] Comment on above: Performed By: #### C ALCULI #### [facility] [address] [address] Cristi Bina Comment: Comment Normal [facility] Comment on above: Result Comment: Vijay graham questions regarding Calculi Analysis contact [facility] at: [phone]. Performed By: #### C ALCULI #### [facility] [address] [address] Cristi Bina Composition Comment Normal [facility] Comment on above: Result Comment: Perc entage (Represents the % composition) Performed By: #### C ALCULI #### [facility] [address] [address] Cristi Bina Cystine Normal [facility] Comment on above: Performed By: #### C ALCULI #### [facility] [address] [address] Cristi Bina Disclaimer: Comment Normal [facility] Comment on above: Result Comment: This test was developed and its performance characteristics determined by [facility]. It has not been cleared or approved by the Food and Drug Administration. Performed By: #### C ALCULI #### [facility] [address] [place] [address] Cristi Bina Dried Blood [facility] Comment on above: Performed By: #### C ALCULI #### [facility] [address] [place] [address] Cristi Bina Drug or Metabolite Normal The [facility] Comment on above: Performed By: #### C ALCULI #### [facility] [address] [place] [address] Cristi Bina Hydroxyapatite Normal [facility] Comment on above: Performed By: #### C ALCULI #### [facility] [address] [place] [address] Cristi Bina Mg NH4 PO4 (Struvite) Normal [facility] Comment on above: Performed By: #### C ALCULI #### [facility] [address] [place] [address] Cristi Bina MgHPO4 (Newberyite) Normal [facility] Comment on above: Performed By: #### C ALCULI #### [facility] [address] [address] Cristi Bina Other component(s) Normal The [facility] Comment on above: Performed By: #### C ALCULI #### [facility] [address] [address] Cristi Bina PDF . Normal [facility] Comment on above: Performed By: #### C ALCULI #### [facility] [address] [address] Cristi Bina Photo Comment Normal [facility] Comment on above: Result Comment: Phot ogph will follow under a separate cover Performed By: #### C ALCULI #### [facility] [address] [address] Cristi Bina Please note: Comment Normal [facility] Comment on above: Result Comment: Calc josé manuel report will follow via computer, mail or lpc delivery. Performed By: #### C ALCULI #### [facility] [address] [address] Cristi Bina Size 4x6 Normal [facility] Comment on above: Result Comment: Mult iple pieces received. Dimensions of the largest piece reported. Performed By: #### C ALCULI #### [facility] [address] [address] Cristi Bina Sodium Acid Urate Normal [facility] Comment on above: Performed By: #### C ALCULI #### [facility] [address] [address] Cristi Bina Source Comment Normal [facility] Comment on above: Result Comment: Righ t Ureter Performed By: #### C ALCULI #### [facility] [address] [address] Cristi Bina Triamterene Normal [facility] Comment on above: Performed By: #### C ALCULI #### [facility] [address] [address] Cristi Bina Uric Acid Normal [facility] Comment on above: Performed By: #### C ALCULI #### [facility] [address] [address] Cristi Bina Uric Acid Dihydrate Normal [facility] Comment on above: Performed By: #### C ALCULI #### [facility] [address] [address] Cristi Bina Weight 122 mg Normal [facility] Comment on above: Performed By: #### C ALCULI #### [facility] [address] [address] Cristi Bina Xanthine Normal [facility] Comment on above: Performed By: #### C ALCULI #### [facility] [address] [id number] Cristi Curran XR KUB 1 VIEWon 06-06-2020 [...] by: MANN DIAZ Date: 2020-06-06 07:31 Normal [facility] XR FLUORO < 1 HRon XR FLUORO [...] by: NOY DONOVAN Date: 2020-05-30 15:24 Normal [facility] Vital Signs Date Time Vital Sign Value Performing Clinician Facility 12-20-2023 13:52-0500 Body height 167.6 cm Layla Montalvo MD Work Phone: [facility] 12-20-2023 13:52-0500 Body mass index (BMI) [Ratio] 34.44 kg/m2 Layla Montalvo MD Work Phone: [facility] 12-20-2023 13:52-0500 Body temperature 98.4 [degF] Layla Montalvo MD Work Phone: [facility] 12-20-2023 13:52-0500 Body weight 96.8 kg Layla Montalvo MD Work Phone: [facility] 12-20-2023 13:52-0500 Heart rate 70 /min Layla Montalvo MD Work Phone: [facility] 12-20-2023 13:52-0500 SaO2% (BldA) [Mass fraction] 95 % Layla Montalvo MD Work Phone: [facility] 09-13-2023 11:21-0400 Blood Pressure Location Yolisanju Charlesdner [facility] 09-13-2023 11:21-0400 Body temperature 97.88 [degF] Yolis Bordner [facility] 09-13-2023 11:21-0400 Diastolic blood pressure 85 mm[Hg] Yolis Bordner [facility] 09-13-2023 11:21-0400 Heart rate 65 /min Yolis Bordner [facility] 09-13-2023 11:21-0400 SaO2% (BldA) [Mass fraction] 97 % Yolis Aracelidner [facility] 09-13-2023 11:21-0400 Systolic blood pressure 135 mm[Hg] Yolis Bordner [facility] Encounters Encounter Date Encounter Type Care Provider Facility Start: 12-20-2023 End: 12-20-2023 Leisa Montalvo MD Work Phone: [facility] Start: 12-20-2023 End: 12-20-2023 Leisa Montalvo MD Work Phone: [facility] Start: 12-20-2023 End: 12-20-2023 ambulatory LAYLA MONTALVO Not Available Start: 12-20-2023 End: 12-20-2023 Office outpatient visit 25 minutes Layla Montalvo MD Work Phone: [facility] Comment on above: Anxiety (Primary Dx) ; Insomnia, unspecified type; BMI 34.0-34.9,adult; Obesity (BMI 30-39.9); Breast cancer screening by mammogram; Screen for colon cancer; Primary hypertension ([facility]/HCC) Start: 09-20-2023 End: 09-20-2023 ambulatory Layla Montalvo [place] Start: 09-20-2023 End: 09-20-2023 Patient encounter procedure Layla Montalvo [facility] Start: 09-16-2023 End: 09-16-2023 ambulatory LAYLA MONTALVO Not Available Start: 09-13-2023 End: 09-13-2023 ambulatory Yolis Boyd [place] Start: 09-13-2023 End: 09-13-2023 Patient encounter procedure Yolis Boyd [facility] Start: 07-27-2023 End: 07-27-2023 ambulatory SELF REFERRAL [place] Start: 05-24-2023 End: 05-24-2023 ambulatory GRIS MOURA Not Available Start: 06-06-2020 End: 06-06-[address] JESUS PORTILLO Facility:[facility] Start: 05-30-2020 End: 05-30-[address] JESUS PORTILLO Facility:[facility] Start: 05-29-[address] JESUS PORTILLO [facility] ity:[facility] Procedures Date Procedure Procedure Detail Performing Clinician Start: 10-09-2019 Mammography Layla sosa MD Work Phone: Start: 11-08-2004 Major left facial reconstruction Yolis Boyd Colonoscopy Yolis de leon oopherectomy 1 Yolis Santacruz beverly Comment on above: right 1999 [employer] operation, high gastric bypass Yolis Boyd Comment on above: 2001 Tonsillectomy and adenoidectomy Yolis Boyd Plan of Treatment Date Care Activity Detail Author Start: 09-15-2024 Medicare Annual Wellness (AWV) Medicare Annual Wellness (AWV) [facility] Start: 05-23-2024 Screening for malign ant neoplasm of colon Colorectal Cancer Screening [facility] Comment on above: Postponed from 08/06 (Patient Refused) Start: 12-20-2023 End: 02-18-2025 DBT Breast - bilateral screening Bilateral screening mammogram with tomosynthesis Imaging Routine Breast cancer screening by mammogram Expected: 12/20/2023, Expires: 02/18/2025 [facility] Comment on above: Expected: 12/20/2023 , Expires: 02/18/2025 Start: 10-10-2023 Influenza vaccination Influenza Vacc ine (#1) [facility] Start: 08-07-2023 Pneumococcal Vaccine : 65+ Years (1 of 1 - PCV) Pneumococcal Vaccine: 65+ Years (1 of 1 - PCV) [facility] Start: 08-22-2022 Screening for malign ant neoplasm of colon FIT-DNA [facility] Start: 10-08-2020 Screening for malign ant neoplasm of breast Mammogram [facility] Start: 1988 Screening for malign ant neoplasm of cervix [facility] Start: 08-07-1979 Screening for malign ant neoplasm of cervix Pap Smear [facility] Start: 1958 Screening for malign ant neoplasm of colon [facility] Noninvasive colorect al cancer DNA and occult blood screening [Presence] in Stool Cologuard colon cancer screening Lab Routine Screen for colon cancer Ordered: 12/20/2023 [facility] Work Phone: Comment on above: Ordered: 12/20/2023 Immunizations Immunization Date Immunization Notes Care Provider Randi griffiths 11-11-2018 influenza, injectable, quadrivalent, preservative free Layla Montalvo MD Work Phone: [facility] 11-11-2018 influenza virus vaccine, unspecified formulation Layla Montalvo MD Work Phone: [facility] 08-20-2008 tetanus toxoid, reduced diphtheria toxoid, and acellular pertussis vaccine, adsorbed Layla Montalvo MD Work Phone: [facility] NEGATED: Highlighted row has not occurred!05-29-2020 influenza virus vaccine, unspecified formulation Yolis Boyd [facility] Payers Date Payer Category Payer Medicaid [employer] MEDICARE A DVANTAGE [id number] 2023 Private Health Insurance [facility] [id number] 2023 Medicaid [id number] 2022 Unknown [id number] 1959 Unknown [id number] 1959 Unknown 1958 Unknown [id number] [id number] 1958 Unknown [id number] 593 1958 Unknown [id number] 593 1958 Unknown [id number] 727 1958 Unknown [id number] 727 1958 Unknown [id number] 727 1958 Unknown [id number] 727 1958 Unknown [id number]. 1259 1958 Unknown [id number]. 1259 1958 Unknown [id number] 1259 Social History Date Type Detail Facility Start: 11-19-2022 End: 09-13-2023 Tobacco smoking status Never smoked tobacco (finding) [facility] Tobacco smoking status Never [facility] Start: 11-19-2022 End: 12-20-2023 Sex Assigned At Female [facility] Start: 11-19-2022 Tobacco use and exposure Smokeless tobacco non-user [facility] Start: 12-20-2023 Alcoholic beverage intake Ex-drinker (finding) [facility] Start: 11-19-2022 End: 12-20-2023 History of Social function [facility] Within the last year , have you been raped or forced to have any kind of sexual activity by your partner or ex-partner? No [facility] Are you now , , , , never or living with a partner? [facility] How often to you hav e a drink containing alcohol? 2-4 times a month [facility] How many standard drinks containing alcohol do you have on a typical day? 3 or 4 [facility] How often do you hav e 6 or more drinks on 1 occasion? Never [facility] Do you feel stress - tense, restless, nervous, or anxious, or unable to sleep at night because your mind is troubled all the time - these days [OSQ] Very much [facility] Start: 1960 Sex assigned at Female [facility] Start: 11-12-2022 Gender identity Identifies as female gender (finding) [facility] Functional Status Date Assessment Result Facility 09-13-2023 Functional Status N/A [facility] History of Present illness Narrative 12-20-2023 Layla Montalvo MD - 12/20/2023 1:40 PM EST Note Date & Type Note Facility 12-20-2023 History of Presen t illness Narrative Images from the original note were not included. Subjective Patient ID: Neo Zheng is a 63 y.o. female who presents for Med Refill, Breast Cancer Screening (Ordered today in office. ), Colon Cancer Screening (Ordered today in office), and Immunizations (Declines at this time. ). HPI Pt here for follow up. HTN - denies sx of high or low BP. Denies side effects of meds. Mood - states her mood is improved since her divorce. Denies side effects of meds, but would like to stop. Sleep - doing well on current regimen w/o side effects. Review of Systems General: Denies fever, chills, fatigue, ZAPATA or weight loss/gain CV: Denies CP, palpitations or swelling in legs Resp: denies cough, SOB or wheezing GI: Denies abd pain/n/v/c/d Skin: Denies rash Neuro: Denies LH or dizziness Objective Pulse 70, temperature 98.4 F, temperature source Temporal, height 5' 6 , weight 213 lb 6.4 oz, SpO2 95%. Body mass index is 34.44 kg/m . 144/96 Physical Exam General: alert & oriented, NAD Head: NC/AT Oral Cavity: MMM Skin: warm, dry Heart: RRR, No m/r/g, S1S2 nml Lungs: CTA b/l Abdomen: soft, ND/NT, BS wnl Musculoskeletal: normal gait Extremities: no clubbing, cyanosis or edema Neurological: nonfocal Psych: mood/affect full range Assessment/Plan Neo was seen today for med refill, breast cancer screening, colon cancer screening and immunizations. Diagnoses and all orders for this visit: Anxiety (Primary) - FLUoxetine (PROzac) 20 MG capsule; Take 1 capsule (20 mg) by mouth Daily - discussed weaning - discussed possible side effects and concerning sx to monitor for Insomnia, unspecified type - traZODone (Desyrel) 100 MG tablet; Take 2 tablets (200 mg) by mouth at bedtime Stable, continue to monitor. No change in regimen. BMI 34.0-34.9,adult Obesity (BMI 30-39.9) - continue to monitor weight Breast cancer screening by mammogram - Bilateral screening mammogram with tomosynthesis; Future Screen for colon cancer - Cologuard colon cancer screening documented in this encounter [facility] Discharge instructions 09-13-2023 Note Date & [...] ?Hypothyroidism. ?Polycystic ovarian syndrome (PCOS). ?Binge-eating disorder. ?Kinsman syndrome. Taking certain medicines, such as steroids, [...] food choices, such as grocery stores and [employer]. What are the signs or symptoms? The [...] and how much exercise you get. Take ayof-xmr-qspjtge and prescription medicines only as told by [...] provider. Document Revised: 09/02/2021 Document Reviewed: 09/02/2021 [employer] Patient Education 2022 [employer] 09/13/2023 19:23:59 BMI for Adults BMI [...] numbers. This can be done either in Prydeinig ([place] or metric measurements. Note that charts and online BMI calculators are available to help you find your BMI quickly and easily without having to do these calculations yourself. To calculate your BMI in [place]ry[place] ([place] measurements: 1.Measure your weight in pounds [...] Centers for Disease Control and Prevention: www.cdc.gov [place] Heart [employer]: www.heart.org National Heart, Lung, and Blood [place]: www.nhlbi.nih.gov Summary Body mass index (BMI) is a number that is calculated from a person's weight and height. BMI may help estimate how much of a person's weight is composed of fat. BMI can help identify those who may be at higher risk for certain medical problems. BMI can be measured using Prydeinig measurements or metric measurements. BMI charts are used to identify whether you are underweight, normal weight, overweight, or obese. This information is not intended to replace advice given to you by your health care provider. Make sure you discuss any questions you have with your health care provider. Document Revised: 10/18/2019 Document Reviewed: 08/25/2019 [employer] Patient Education 2022 [employer] 09/13/2023 19:23:54 Sciatica, Wlzb-dv-Depv Sciatica Sciatica is pain, weakness, tingling, or [...] Follow these instructions at home: Medicines Take lmcm-gig-lfsdwok and prescription medicines only as told by [...] provider. Document Revised: 05/04/2022 Document Reviewed: 05/04/2022 [employer] Patient Education 2022 [employer]. Follow Up Care 09/13/2023 10:59:43 With:Layla Montalvo MD Address: [address] [place] [address]- When: Unknown [facility] Clinical Note 09-13-2023 Note [...] food choices, such as grocery stores and farmers' markets. What are the signs or symptoms? [...] alcohol: ? Limit (more content not included)... [facility] Clinical Note 05-30-2020 Note Date & Type Note Facility 05-30-2020 Note OPERATIVE NOTE OPERATION DATE: 05-30-20 ANESTHETIC:General by LMA. PREOPERATIVE DIAGNOSIS: Right ureteral calculus. POSTOPERATIVE DIAGNOSIS:Same. PROCEDURE NAME: 1. Cystoscopy. 2. Right rigid ureteral dilation. 3. Right ureteroscopy. 4. Holmium laser lithotripsy of two ureteral calculi. 5. Stone basket extraction of two ureteral calculi. 6. Placement of a 7 Estonian variable length right ureteral stent. COMPLICATIONS: None. [...] fashion. I started by passing a 22 Estonian Olympus cystoscope per urethra and into the [...] used an 8 and 10 citizen of [place] rigid dilator to dilate the distal right [...] I then slid a 7 citizen of [place] variable length right ureteral stent over the wire up into the kidney and then removed the wire. There were good curls in the kidney and in the bladder. I then used the [employer] evacuator to get all the stone pieces out of the bladder and these were sent for stone analysis. The bladder was then drained of it's contents and the scope was then removed. The anesthetic was then reversed. She was then transferred to a [facility] bed and wheeled to the Recovery Room in stable condition. She tolerated it well. There were no complications. She will be discharged to home later today with a script for Keflex 500 mg daily #21 and oxybutynin ER 10 mg daily #21. We will bring her back in a week or two for right ESWL and stent removal. [facility] Signed and Approved by: DR JESUS PORTILLO . 06/06/2020 11:38:00 [facility] Evaluation + Plan note Note Date & Type Note Facility Evaluation + Plan note No data available for this section [facility] Evaluation note Note Date & Type Note Facility Evaluation note Diagnosis Encounter for Medicare annual wellness exam- Primary Left sided sciatica Sciatica Primary hypertension (CMS/HCC) Unspecified essential hypertension Acquired hypothyroidism (CMS/HCC) Unspecified hypothyroidism Gastroesophageal reflux disease, unspecified whether esophagitis present Chronic fatigue syndrome Primary insomnia Persistent disorder of initiating or maintaining sleep DDD (degenerative disc disease), lumbar Degeneration of lumbar or lumbosacral intervertebral disc Osteoarthritis, unspecified osteoarthritis type, unspecified site Vitamin D deficiency Anxiety Anxiety state, unspecified Major depressive disorder, single episode, in partial remission (HCC) (CMS/HCC) Major depressive disorder, single episode, in partial or unspecified remission BMI 35.0-35.9,adult Morbid obesity (CMS/HCC) Morbid obesity Anxiety- Primary Anxiety state, unspecified Insomnia, unspecified type BMI 34.0-34.9,adult Obesity (BMI 30-39.9) Breast cancer screening by mammogram Screen for colon cancer Special screening for malignant neoplasms, colon Primary hypertension (CMS/HCC) Unspecified essential hypertension documented in this encounter [facility] Discharge instructions Note Date & Type Note Facility Hospital Discharge instructions No data available for this section [facility] Progress note Note Date & Type Note Facility Progress note No data available for this section [facility] Summary Purpose Family History [...] and content) DATE CREATED AUTHOR 06/15/2020 [facility] DATE CREATED AUTHOR AUTHOR'S ORGANIZ ATION 09/21/2023 Polo Montcalm [facility] DATE CREATED AUTHOR AUTHOR'S ORGANIZ ATION 09/26/2023 [facility] DATE CREATED AUTHOR AUTHOR'S ORGANIZ ATION 12/22/2023 [facility] EPIC Patient Care team informatio n (unrecognized section and content) Parachute Folder Relationship Specialty Start Date End Date Layla Montalvo MD [address] [place] [address] PCP - General Family Medicine 08/05/23 Layla Montalvo MD [address] [place] [address] PCP - [employer] 09/09/23 Parachute Folder Relationship Specialty Start Date End Date Layla Montalvo MD [address] [place] [address] PCP - General Family Medicine 08/05/23 Layla Montalvo MD [address] [place] [address] PCP - [employer] 09/09/23 Reason for Visit (unrecogniz ed section and content) Reason Comments Med Refill Breast Cancer Screening Ordered today in office. Colon Cancer Screening Ordered today in office Immunizations Declines at this cierra e. FOR RECORDS PERTAINING TO PATIENTS WHO ARE [...] BE BASED ON THE PRIMARY CLINICAL RECORDS. [employer] provides no warranty or guarantee of the accuracy or completeness of information in this document.
== END 2023-12-29 13:35 | disposition home or self-care (01) ==
LOC: VC 13:03
PROVIDERS: PCP Radiology Diagnostic Radiology; Visit Provider Radiology Diagnostic Radiology
DX: I80.01 Phlebitis and thrombophlebitis of superficial vessels of right lower extremity (principal)
CPT/HCPCS: 93971; G0463

== ENCOUNTER 2024-01-04 14:25 | Outpatient (OUT) | payer MEDICARE, SELFPAY ==
--- NOTE | 2024-01-04 07:46 | VEINCLINIC_ITS ---
Vital Signs 01/04/24 14:45 BP 138/72 BP Location Right Brachial BP Position Sitting BP Cuff Size Adult BP Source Manual Cuff Respiration 16 Pulse 86 Pulse Source Monitor Pulse Oximetry (%) 96 Comment The patient's blood pressure is elevated. Varicose Veins Patient in today for sclerotherapy Julien Santana MD personally performed the services described in this documentation, as scribed by Stefan Ross RN in my presence and it is both accurate and complete. Stefan Santana RN, am scribing for, and in the presence of, Dr. Julien Vega and in the presence of the patient. medial thigh: bilateral, knee: bilateral, calf: bilateral, ankle: bilateral and zepeda: bilateral dull, sharp and intermittent 8 2 months Worsened in recent months: Yes standing bed rest, elevating extremities and compression stockings Reports muscle spasms of leg, heaviness, edema and leg edema History of lower extremity trauma: No Superficial thrombophlebitis: No Family history of varicose veins: unknown Has patient had previous lower extremity venous surgery: No Patient has previously received the following treatment(s) for lower extremity varicose veins: Reports sclerotherapy Does patient have a history of : yes Does patient intend to have future pregnancies: no Has patient had lower extremity venous scan with relux testing: Yes Support hose used: Yes Problems walking or doing physical activity: Yes How does it affect you: Pain and heaviness when walking Do you walk much: Yes Do you stand much: Yes Medication compliance: good Review of Systems ROS Narrative Julien Santana MD personally performed the services described in this documentation, as scribed by Stefan Ross RN in my presence and it is both accurate and complete. Stefan Santana RN, am scribing for, and in the presence of, Dr. Julien Vega and in the presence of the patient. Status of ROS 10 or more systems reviewed and unremark able except as noted in history and below Cardiovascular Reports: edema, swelling of feet/ankles and leg pain with exertion Musculoskeletal Reports: extremity pain, extremity swelling, limited range of motion, joint swelling, muscle cramps and muscle weakness Integumentary/Breast Reports: itching, redness, skin pain, skin tenderness, skin swelling, new lesion, non-healing lesion and changes in skin color Neurological Reports: numbness in extremities and weakness in extremities PFSH PFS Medical History (Updated 08/24/23 @ 15:05 by Stefan Ross) Phlebitis and thrombophlebitis of superficial vessels of right lower extremity ?I80.01 - Phlebitis and thrombophlebitis of superficial vessels of right lowe r extremity (ICD-10) Phlebitis and thrombophlebitis of superficial vessels of left lower extremity ?I80.02 - Phlebitis and thrombophlebitis of superficial vessels of left lower extremity (ICD-10) Varicose veins of bilateral lower extremities with pain ?I83.813 - Varicose veins of bilateral lower extremities with pain (ICD-10) Kidney stone ?N20.0 - Calculus of kidney (ICD-10) Insomnia ?G47.00 - Insomnia, unspecified (ICD-10) Hypotension ?I95.9 - Hypotension, unspecified (ICD-10) Hypertension ?I10 - Essential (primary) hypertension (ICD-10) Surgical History (Updated 01/04/24 @ 15:26 by Stefan Ross) Status post laser ablation of incompetent vein ?Z98.890 - Other specified postprocedural states (ICD-10) S/P sclerotherapy of varicose veins ?Z98.890 - Other specified postprocedural states (ICD-10) ?Z86.79 - Personal history of other diseases of the circulatory system (ICD- 10) Status post ablation of incompetent vein using laser ?Z98.890 - Other specified postprocedural states (ICD-10) History of bilateral oophorectomy ?Z90.722 - Acquired absence of ovaries, bilateral (ICD-10) History of plastic surgery ?Z98.890 - Other specified postprocedural states (ICD-10) History of gastric bypass ?Z98.84 - Bariatric surgery status (ICD-10) Family History (Updated 08/10/23 @ 15:02 by Sharon Castillo) Other Family history not known due to adoption Social History (Updated 08/10/23 @ 15:03 by Sharon Castillo) Within the past year, how often did you have a drink containing alcohol: 2-4 times a month Smoking status: Never smoker Non-prescribed substance use: denies use Meds Home Medications and Allergies Home Medications ?Medication ?Instructions ?Recorded ?Confirmed ?Type aspirin 81 mg capsule 81 mg PO DAILY 08/10/23 08/10/23 History carvedilol 6.25 mg tablet (Coreg) 6.25 mg PO BID 08/10/23 08/10/23 History cholecalciferol (vitamin D3) 50 50 mcg PO DAILY 08/10/23 08/10/23 History mcg (2,000 unit) capsule (D3-2000) levothyroxine 100 mcg tablet 100 mcg PO DAILY 08/10/23 08/10/23 History (Euthyrox) trazodone 50 mg tablet 25 mg PO DAILY 08/10/23 08/10/23 History triamterene 37.5 1 cap PO DAILY 08/10/23 08/10/23 History mg-hydrochlorothiazide 25 mg capsule Allergies Allergy/AdvReac Type Severity Reaction Status Date / Time No Known Drug Allergies Allergy Verified 07/30/23 17:01 Exam Narrative Exam Narrative: Julien Santana MD personally performed the services described in this documentation, as scribed by Stefan Ross RN in my presence and it is both accurate and complete. IStefan RN, am scribing for, and in the presence of, Dr. Julien Vega and in the presence of the patient. Constitutional Documenting provider has reviewed patient's vital signs: yes Common normals: oriented x3 Lymph Lymphatic: no lymphedema noted Cardio Common normals: regular rate Rate: regular rate Peripheral pulses: posterior tibial pulses present and dorsalis pedis pulses present Extremity Common normals: normal capillary refill General: calf tenderness and edema Right lower extremity: upper leg and lower leg Left lower extremity: upper leg and lower leg Neuro Common normals: oriented x3 Assessment and Plan Assessment and Plan (1) Varicose veins of bilateral lower extremities with pain: Plan Additional sclerotherapy Julien Santana MD personally performed the services described in this documentation, as scribed by Stefan Ross RN in my presence and it is both accurate and complete. Stefan Santana RN, am scribing for, and in the presence of, Dr. Julien Vega and in the presence of the patient. Procedures Procedure Instructions Procedures sclerotherapy: Risks and benefits of the procedure were discussed at length and informed written consent was obtained.? Time-out procedure was performed and the correct patient and procedure were confirmed.? Staff present during time-out: Stefan Ross RN and Julien Vega MD.? Patient prepped and procedure performed in usual sterile fashion. Injections performed by Dr. Vega and Stefan Ross RN Sclerosing Agent:?4? cc 0.5% Polidocanol Site Injected: right leg Number of Injections: 31 Anesthesia: Supercooled air The patient tolerated the procedure well without complication.? Hemostasis was obtained and thigh-high compression stocking was applied by patient.? Instructed patient to wear stocking for at least 96 hours and sleep with it and only remove for showering.? Will wear stocking for 2 weeks.? The patient verbalizes understanding and states they will comply.? Patient was given post-procedure instructions. Patient was discharged in good condition.? Scheduled to undergo additional injection sclerotherapy on 01/12/2024 IJulien MD personally performed the services described in this documentation, as scribed by Stefan Ross RN in my presence and it is both accurate and complete. Stefan Santana RN, am scribing for, and in the presence of, Dr. Julien Vega and in the presence of the patient. .
--- NOTE | 2024-01-04 07:49 | P.DS_ITS ---
Discharge Plan Discharge Disposition: Home, Self-Care Outpatient Diagnostics: VC INJ Sclerosing SOLMULT Vein (Routine) Timeframe: 2 Weeks Facility: [facility] - Location: [facility] Center Ordered By: Julien Vega Follow Up Appointments: 01/12/2024 Plan of Treatment: additional sclerotherapy Patient Instructions: Polidocanol (By injection) Print Language: Angolan Discharge Date/Time: 01/04/24 15:29
--- NOTE | 2024-01-04 14:27 | VEIN_ITS ---
[address] [address] Patient Name: NEO ZHENG MRN: [id number] date: 1960 Sex: F Assigned Patient Location: Current Patient Location: Accession/Order Number: [id number] Exam Date: 01/04/2024 14:27 Report Date: 01/05/2024 07:47 At the request of: MANN DIAZ Procedure: VC INJ Sclerosing SOLMULT Vein EXAMINATION: VC INJ Sclerosing SOLMULT Vein HISTORY: I83.813 - Varicose veins of bilateral lower extremities w... The risks and benefits of the procedure were explained at length to the patient and informed written consent was obtained. The procedure was performed under sterile technique. The patient's leg was wrapped with Coban and postprocedural verbal and written instructions provided. Stefan Ross RN was present and assisted. SCLEROSANT: 2mL 0.5% Polidocanol. VEIN(S) INJECTED: 31 veins in the right leg. VISUALIZATION: Ultrasound was not used to visualize the sclerosant. ANESTHESIA: Supercooled air. COMPLICATIONS: None. Electronically authenticated by: NOY DONOVAN Date: 01/05/2024 07:47
[2024-01-04 14:45] VITALS: BP 138/72; PULSE 86; O2SAT 96
== END 2024-01-04 15:29 | disposition home or self-care (01) ==
LOC: VC 14:25
PROVIDERS: PCP Radiology Diagnostic Radiology; Visit Provider Radiology Diagnostic Radiology
DX: I83.813 Varicose veins of bilateral lower extremities with pain (principal)
CPT/HCPCS: 36471

== ENCOUNTER 2024-01-12 12:56 | Outpatient (OUT) | payer MEDICARE, SELFPAY ==
--- NOTE | 2024-01-10 15:25 | V.VEINS.HP ---
Vital Signs 01/12/24 13:05 BP 130/76 BP Location Right Brachial BP Position Sitting BP Cuff Size Adult BP Source Manual Cuff Respiration 16 Pulse 68 Pulse Source Monitor Pulse Oximetry (%) 99 Oxygen Delivery Method Room Air Comment The patient's blood pressure is elevated. Varicose Veins Patient in today for sclerotherapy Jericho Santana MD personally performed the services described in this documentation, as scribed by Stefan Ross RN in my presence and it is both accurate and complete. Stefan Santana RN, am scribing for, and in the presence of, Dr. Jericho Aviles and in the presence of the patient. medial thigh: bilateral, knee: bilateral, calf: bilateral, ankle: bilateral and zepeda: bilateral dull, sharp and intermittent 8 2 months Worsened in recent months: Yes standing bed rest, elevating extremities and compression stockings Reports muscle spasms of leg, heaviness, edema and leg edema History of lower extremity trauma: No Superficial thrombophlebitis: No Family history of varicose veins: unknown Has patient had previous lower extremity venous surgery: No Patient has previously received the following treatment(s) for lower extremity varicose veins: Reports sclerotherapy Does patient have a history of : yes Does patient intend to have future pregnancies: no Has patient had lower extremity venous scan with relux testing: Yes Support hose used: Yes Problems walking or doing physical activity: Yes How does it affect you: Pain and heaviness when walking Do you walk much: Yes Do you stand much: Yes Medication compliance: good Review of Systems ROS Narrative Jericho Santana MD personally performed the services described in this documentation, as scribed by Stefan Ross RN in my presence and it is both accurate and complete. Stefan Santana RN, am scribing for, and in the presence of, Dr. Jericho Aviles and in the presence of the patient. Status of ROS 10 or more systems reviewed and unremarkable except as noted in history and below Cardiovascular Reports: edema, swelling of feet/ankles and leg pain with exertion Musculoskeletal Reports: extremity pain, extremity swelling, limited range of motion, joint swelling, muscle cramps and muscle weakness Integumentary/Breast Reports: itching, redness, skin pain, skin tenderness, skin swelling, new lesion, non-healing lesion and changes in skin color Neurological Reports: numbness in extremities and weakness in extremities [facility] Medical History (Updated 08/24/23 @ 15:05 by Stefan Ross) Phlebitis and thrombophlebitis of superficial vessels of right lower extremity ?I80.01 - Phlebitis and thrombophlebitis of superficial vessels of right lower extremity (ICD-10) Phlebitis and thrombophlebitis of superficial vessels of left lower extremity ?I80.02 - Phlebitis and thrombophlebitis of superficial vessels of left lower extremity (ICD-10) Varicose veins of bilateral lower extremities with pain ?I83.813 - Varicose veins of bilateral lower extremities with pain (ICD-10) Kidney stone ?N20.0 - Calculus of kidney (ICD-10) Insomnia ?G47.00 - Insomnia, unspecified (ICD-10) Hypotension ?I95.9 - Hypotension, unspecified (ICD-10) Hypertension ?I10 - Essential (primary) hypertension (ICD-10) Surgical History (Updated 01/12/24 @ 13:46 by Stefan Ross) S/P sclerotherapy of varicose veins ?Z98.890 - Other specified postprocedural states (ICD-10) ?Z86.79 - Personal history of other diseases of the circulatory system (ICD-10) Status post laser ablation of incompetent vein ?Z98.890 - Other specified postprocedural states (ICD-10) S/P sclerotherapy of varicose veins ?Z98.890 - Other specified postprocedural states (ICD-10) ?Z86.79 - Personal history of other diseases of the circulatory system (ICD-10) Status post ablation of incompetent vein using laser ?Z98.890 - Other specified postprocedural states (ICD-10) History of bilateral oophorectomy ?Z90.722 - Acquired absence of ovaries, bilateral (ICD-10) History of plastic surgery ?Z98.890 - Other specified postprocedural states (ICD-10) History of gastric bypass ?Z98.84 - Bariatric surgery status (ICD-10) Family History (Updated 08/10/23 @ 15:02 by Sharon Castillo) Other Family history not known due to adoption Social History (Updated 08/10/23 @ 15:03 by Sharon Castillo) Within the past year, how often did you have a drink containing alcohol: 2-4 times a month Smoking status: Never smoker Non-prescribed substance use: denies use Meds Home Medications and Allergies Home Medications ?Medication ?Instructions ?Recorded ?Confirmed ?Type aspirin 81 mg capsule 81 mg PO DAILY 08/10/23 08/10/23 History carvedilol 6.25 mg tablet (Coreg) 6.25 mg PO BID 08/10/23 08/10/23 History cholecalciferol (vitamin D3) 50 50 mcg PO DAILY 08/10/23 08/10/23 History mcg (2,000 unit) capsule (D3-2000) levothyroxine 100 mcg tablet 100 mcg PO DAILY 08/10/23 08/10/23 History (Euthyrox) trazodone 50 mg tablet 25 mg PO DAILY 08/10/23 08/10/23 History triamterene 37.5 1 cap PO DAILY 08/10/23 08/10/23 History mg-hydrochlorothiazide 25 mg capsule Allergies Allergy/AdvReac Type Severity Reaction Status Date / Time No Known Drug Allergies Allergy Verified 07/30/23 17:01 Exam Narrative Exam Narrative: Jericho Santana MD personally performed the services described in this documentation, as scribed by Stefan Ross RN in my presence and it is both accurate and complete. Stefan Santana RN, am scribing for, and in the presence of, Dr. Jericho Aviles and in the presence of the patient. Constitutional Documenting provider has reviewed patient's vital signs: yes Common normals: oriented x3 Lymph Lymphatic: no lymphedema noted Cardio Common normals: regular rate Rate: regular rate Peripheral pulses: posterior tibial pulses present and dorsalis pedis pulses present Extremity Common normals: normal capillary refill General: calf tenderness and edema Right lower extremity: upper leg and lower leg Left lower extremity: upper leg and lower leg Neuro Common normals: oriented x3 Assessment and Plan Assessment and Plan (1) Varicose veins of bilateral lower extremities with pain: Plan Additional sclerotherapy Jericho Santana MD personally performed the services described in this documentation, as scribed by Stefan Ross RN in my presence and it is both accurate and complete. Stefan Santana RN, am scribing for, and in the presence of, Dr. Jericho Aviles and in the presence of the patient. Procedures Procedure Instructions Procedures sclerotherapy: Risks and benefits of the procedure were discussed at length and informed written consent was obtained.? Time-out procedure was performed and the correct patient and procedure were confirmed.? Staff present during time-out: Stefan Ross RN and Jericho Aviles MD.? Patient prepped and procedure performed in usual sterile fashion. Injections performed by Dr. Aviles and Stefan Ross RN Sclerosing Agent:?4? cc 0.5% Polidocanol Site Injected: left leg Number of Injections: 24 Anesthesia: Supercooled air The patient tolerated the procedure well without complication.? Hemostasis was obtained and thigh-high compression stocking was applied by patient.? Instructed patient to wear stocking for at least 96 hours and sleep with it and only remove for showering.? Will wear stocking for 2 weeks.? The patient verbalizes understanding and states they will comply.? Patient was given post-procedure instructions. Patient was discharged in good condition.? Scheduled to undergo additional injection sclerotherapy on 01/17/2024. IJericho MD personally performed the services described in this documentation, as scribed by Stefan Ross RN in my presence and it is both accurate and complete. IStefan RN, am scribing for, and in the presence of, Dr. Jericho Aviles and in the presence of the patient. .
--- NOTE | 2024-01-10 15:27 | P.DS_ITS ---
Discharge Plan Discharge Disposition: Home, Self-Care Outpatient Diagnostics: VC INJ Sclerosing SOLMULT Vein (Routine) Timeframe: 2 Weeks Facility: [facility] - Location: Vein Center Ordered By: Jericho Aviles Follow Up Appointments: 01/17/2024 Patient Instructions: Polidocanol (By injection) Print Language: Bengali Discharge Date/Time: 01/12/24 13:49
--- NOTE | 2024-01-12 12:57 | VEIN_ITS ---
[address] [address] Patient Name: NEO ZHENG MRN: [id number] date: 1960 Sex: F Assigned Patient Location: Current Patient Location: Accession/Order Number: [id number] Exam Date: 01/12/2024 12:57 Report Date: 01/12/2024 14:00 At the request of: NOY DONOVAN Procedure: VC INJ Sclerosing SOLMULT Vein EXAMINATION: VC INJ Sclerosing SOLMULT Vein HISTORY: I83.813 COMPARISON: No relevant comparison available. TECHNIQUE: The risks and benefits of the procedure were explained at length to the patient and informed written consent was obtained. was present and assisted. The procedure was performed under sterile technique. The patient's leg was wrapped with Coban and postprocedural verbal and written instructions provided. SCLEROSANT: 4 cc, 0.5% polidocanol VEIN(S) INJECTED: 24 veins in the right leg VISUALIZATION: Ultrasound was not used to visualize the sclerosant ANESTHESIA: Supercooled air COMPLICATIONS: None VEIN/VC INJ Sclerosing SOLMULT Vein IMPRESSION: Technically successful sclerotherapy as described Electronically authenticated by: MANN DIAZ Date: 01/12/2024 14:00
[2024-01-12 13:05] VITALS: BP 130/76; PULSE 68; O2SAT 99
== END 2024-01-12 13:49 | disposition home or self-care (01) ==
LOC: VC 12:56
PROVIDERS: PCP Radiology Diagnostic Radiology; Visit Provider Radiology Diagnostic Radiology
DX: I83.813 Varicose veins of bilateral lower extremities with pain (principal)
CPT/HCPCS: 36471